=== PATIENT | male | born 1950 | race Caucasian/White ===

== ENCOUNTER 2017-04-28 19:31 | Emergency (ER) | payer OTHER ==
[~2017-04-28] VITALS: Ht 180.3 cm; Wt 114.4 kg
[~2017-04-28 19:31] MED LIST: CIPR-255 PO; CITA40TA4 PO; CLOP1TAB5 PO; PRLSR20 PO; SIMV40TA4 PO; TERA1CAP PO
[2017-04-28 19:37] VITALS: TEMP 37.3; Ht 180.3 cm; Wt 114.4 kg
--- NOTE | 2017-04-28 20:54 | DIAGNOSTIC IMAGING REPORT ---
LEFT HAND 3 VIEWS CLINICAL HISTORY: Left hand injury. Tractor accident. FINDINGS: 3 views of left hand are obtained. No prior studies are available for comparison at the time of dictation. The skeletal structures are well mineralized for age. There is a small avulsion fracture identified at the base of the second proximal phalanx. There are tiny avulsion fractures seen at the volar base of the second distal phalanx, the second middle phalanx, and the third middle phalanx on the lateral view. An avulsion fracture is also seen arising from the posterior aspect of the distal radius on the lateral view. Mild arthritic change is seen involving the interphalangeal joints. Significant overlying soft tissue edema is noted, greatest dorsally. IMPRESSION: 1. There is a minimally distracted avulsion fracture seen at the base of the second proximal phalanx. 2. There are avulsion fractures seen at the volar base of the second distal phalanx, the second middle phalanx, and the third middle phalanx. 3. There is an avulsion fracture seen from the posterior radius. 4. Diffuse soft tissue edema is noted, greatest dorsally. Electronically signed by: Darvin Ba M.D. 04/28/2017 8:52 PM Dictated Date/Time: 04/28/2017 8:47 PM
--- NOTE | 2017-04-28 21:16 | DIAGNOSTIC IMAGING REPORT ---
CT SCAN OF THE BRAIN WITHOUT IV CONTRAST CLINICAL HISTORY: Trauma. COMPARISON STUDY: CT of the brain dated 11/12/2010. TECHNIQUE: Unenhanced axial CT scan of the brain is performed from the vertex to the skull base. Automated dose control exposure was utilized. CT DOSE: 1277.40 mGy.cm FINDINGS: Brain parenchyma: There is minimal periventricular microangiopathic change. The brain parenchyma is otherwise normal in appearance. There is no hemorrhage, mass effect, or evidence of acute territorial ischemia by CT criteria. Moncada-white matter is preserved. No extra-axial fluid collection is seen. Ventricles, sulci, cisterns: Normal in configuration. Intracranial vasculature: There is mild atherosclerotic calcification of the cavernous carotid arteries. Calvarium: There is no depressed calvarial fracture. Sinuses and mastoids: The visualized paranasal sinuses are clear. A small posterior defect of the left frontal sinus seen on image #15 is unchanged from 2011. The mastoid air cells are well pneumatized. Orbits: The bony orbits are grossly intact. IMPRESSION: No acute intracranial abnormality. Electronically signed by: Darvin Ba M.D. 04/28/2017 9:15 PM Dictated Date/Time: 04/28/2017 9:13 PM
[2017-04-28] MEDS ORDERED: OXYC1CAP5 PO (21:18)
--- NOTE | 2017-04-28 21:35 | DIAGNOSTIC IMAGING REPORT ---
CT SCAN OF THE CERVICAL SPINE CLINICAL HISTORY: Trauma. Tractor accident. COMPARISON STUDY: No priors. TECHNIQUE: CT scan of the cervical spine is performed from the skull base to the upper thoracic spine. Images are reviewed in the axial, sagittal, and coronal planes. IV contrast was not administered for this examination. FINDINGS: Skeletal structures: The skeletal structures are well mineralized for age. There is no evidence of fracture or subluxation involving the cervical spine. Vertebral body height and alignment are maintained. There is straightening of cervical lordosis with reversal centered at C5. The odontoid process and lateral masses are intact. There is calcification of the posterior longitudinal ligament. The atlantoaxial articulation is preserved noting productive degenerative change. The spinous processes appear intact. Degenerative sclerosis is seen at C5-C6 and C6-C7. Anterior osteophytes are noted in the lower cervical spine. There is moderate multilevel cervical spondylosis. Uncovertebral and facet arthropathy contribute to neural foraminal stenosis at several levels. Spina bifida occulta is incidentally noted involving T1. Intervertebral discs: There is moderate to advanced degenerative disc space narrowing at C5-C6 and C6-C7. Mild narrowing is seen at C7-T1. Central canal: Posterior disc osteophyte complexes at C5-C6 and C6-C7 likely treatment to acquired compromise of the central canal. Soft tissues: The prevertebral and paraspinous soft tissues are within normal limits. The left lobe of the thyroid gland extends into the mediastinum. Calvarium: The visualized calvarium at the skull base appears intact. Brain parenchyma: Partially visualized brain parenchyma the skull base is within normal limits. Sinuses and mastoids: The visualized paranasal sinuses are clear. The mastoid air cells are well pneumatized. Lung apices: Clear as visualized. IMPRESSION: 1. There is no evidence of fracture or subluxation involving the cervical spine. 2. Multilevel cervical spondylosis as above. Electronically signed by: Darvin Ba M.D. 04/28/2017 9:34 PM Dictated Date/Time: 04/28/2017 9:29 PM
--- NOTE | 2017-04-28 21:44 | DIAGNOSTIC IMAGING REPORT ---
CT SCAN OF THE LUMBAR SPINE WITHOUT IV CONTRAST CLINICAL HISTORY: Trauma. COMPARISON STUDY: CT scan of the lumbar spine dated 05/29/2016. TECHNIQUE: CT scan of the lumbar spine is performed from the lower thoracic spine to the sacrum. Images are reviewed in the axial, sagittal, and coronal planes. IV contrast was not administered for this examination. CT DOSE: 1496.59 mGy.cm FINDINGS: The skeletal structures are well mineralized for age. There is no evidence of fracture or malalignment involving the lumbar spine. Vertebral body height and alignment are maintained. The transverse and spinous processes are intact. There is no spondylolysis. No lytic or blastic lesions are seen. There is mild to moderate disc space narrowing at L5-S1 with associated vacuum phenomenon. The remaining disc spaces are preserved. Small posterior disc bulges are suggested at L4-L5 and L5-S1. There is no evidence of large disc herniation. Small anterior osteophytes are seen in the lower lumbar region. The visualized sacrum and bony pelvis appear intact. The paraspinous soft tissues are within normal limits. Mild to moderate atherosclerotic calcification is noted in the abdominal aorta. IMPRESSION: 1. There is no evidence of fracture or malalignment involving the lumbar spine. 2. Mild spondylotic change as above. Electronically signed by: Darvin Ba M.D. 04/28/2017 9:42 PM Dictated Date/Time: 04/28/2017 9:38 PM
--- NOTE | 2017-04-28 22:55 | DIAGNOSTIC IMAGING REPORT ---
BONY ORBITS 3 VIEWS CLINICAL HISTORY: MRI clearance. FINDINGS: 3 views of the bony orbits are obtained. Correlation is made with CT of the brain dated 04/28/2017. There is no radiodense/metallic foreign body seen in the region of the bony orbits. The bony orbits are intact as imaged. The visualized paranasal sinuses and the mastoid air cells appear clear. The imaged calvarium appears intact. IMPRESSION: There is no radiodense/metallic foreign body seen in the region of the bony orbits. Electronically signed by: Darvin Ba M.D. 04/28/2017 10:53 PM Dictated Date/Time: 04/28/2017 10:53 PM
[2017-04-29] MEDS ORDERED: ACETAMINOPHEN 500 MG TAB PO STA (01:46)
[2017-04-29] MEDS ORDERED: OXYC1TAB3 PO (02:11)
[2017-04-29] MEDS ORDERED: OXYCODONE IR HOME PACK PO ONE (02:15)
[2017-04-29 02:20] VITALS: BP 126/82; PULSE 66; O2SAT 95
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
== END 2017-04-29 02:20 | disposition home or self-care (01) ==
LOC: C.EDB 19:33 → C.EDA 04-29 02:20
DX: S62.92XA Unspecified fracture of left hand, initial encounter for closed fracture (principal); S62.102A Fracture of unspecified carpal bone, left wrist, initial encounter for closed fracture; S09.90XA Unspecified injury of head, initial encounter; W28.XXXA Contact with powered lawn mower, initial encounter; M54.5 Low back pain; E78.5 Hyperlipidemia, unspecified; K21.9 Gastro-esophageal reflux disease without esophagitis; G47.33 Obstructive sleep apnea (adult) (pediatric); Z96.659 Presence of unspecified artificial knee joint; Z96.649 Presence of unspecified artificial hip joint; Z79.899 Other long term (current) drug therapy; Z82.49 Family history of ischemic heart disease and other diseases of the circulatory system; Z80.9 Family history of malignant neoplasm, unspecified; Z83.79 Family history of other diseases of the digestive system

== ENCOUNTER 2017-09-30 18:52 | Observation (INO) | payer OTHER ==
[~2017-09-30] VITALS: Ht 180.3 cm; Wt 116.1 kg
[~2017-09-30 18:52] MED LIST changes: -CIPR-255 PO; +OXYC1CAP5 PO; +OXYC1TAB3 PO; -TERA1CAP PO
[2017-09-30] MEDS ORDERED: ONDANSETRON INJ 2 MG/ML 2 ML VIAL IV STA (21:13)
[2017-09-30] MEDS ORDERED: MoRPHine SULFATE 4 MG/ML 1 ML CARP\\VIAL IV STA (21:13)
[2017-09-30 21:40] LABS: COMPLETE YES; EOS % 0.7 %; HEMATOCRIT 48.1 % (42-52); IG% 0.3 %; LYMPH % 15.1 %; LYMPH ABS # 1.42 K/uL (1.2-3.4); MEAN CELL VOLUME 92.7 fL (80-100); MEAN CORPUSCULAR HEMOGLOBIN 31.2 pg (25-34); MEAN CORPUSCULAR HGB CONC 33.7 g/dl (32-36); MEAN PLATELET VOLUME 9.7 fL (7.4-10.4); MONO % 9.3 %; NEUT % 74.6 %; PLATELET COUNT 207 K/uL (130-400); RED BLOOD COUNT 5.19 M/uL (4.7-6.1); WHITE BLOOD COUNT 9.39 K/uL (4.8-10.8)
[2017-09-30 21:51] LABS: BUN/CREATININE RATIO 15.5 (10-20); CALCIUM 9.2 mg/dl (8.5-10.1); CREATININE 1.28 mg/dl (0.60-1.40); POTASSIUM 3.9 mmol/L (3.5-5.1)
[2017-09-30 23:01] LABS: URINE APPEARANCE CLEAR (CLEAR); URINE BILIRUBIN NEG (NEG); URINE COLOR DK YELLOW; URINE NITRITE NEG (NEG); URINE SPECIFIC GRAVITY 1.026 (1.000-1.030); UROBILINOGEN NEG (NEG)
[2017-09-30 23:03] LABS: MANUAL MICROSCOPIC REQUIRED? NO; REVIEW REQ? NO
[2017-09-30] MEDS ORDERED: OPTIRAY 320 IV PRN (23:30)
[2017-09-30] MEDS ORDERED: MoRPHine SULFATE 2 MG/ML CARP IV STA (23:31)
[2017-10-01] VITALS (9 sets, daily range): BP systolic 114–133; BP diastolic 74–80; PULSE 65–67; TEMP 36.5–37; O2SAT 92–97; Ht 180.3 cm; Wt 116.1 kg
--- NOTE | 2017-10-01 01:48 | Surgery Consultation ---
Consultation Date of Consultation: Oct 01, 2017. Attending Physician: History of Present Illness The patient is a 66 year old male who presents to the Emergency Room with complaints of worsening RLQ abdominal pain for the past 3 hours. The patient states that he had similar pain about 3 weeks ago that resolved after a short time. He has been feeling well since then. Tonight the patient developed lower abdominal pain that is worse on the right side. He rates his current pain as a 9.5/10 in severity. He describes his pain as sharp. Sitting up exacerbates his pain. The patient states that he became cold and clammy while in the waiting room of the ED. The patient denies fevers, back pain, vomiting, dysuria, hematuria, diarrhea, melena, and hematochezia. He had a normal bowel movement earlier today. He had a normal colonoscopy earlier this year. 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: Acute (2) Acute urinary retention Status: Acute (3) BPH (benign prostatic hyperplasia) Status: Acute (4) Closed head injury Status: Acute (5) Constipation Status: Acute (6) Fracture of multiple bones of left hand Status: Acute (7) Left wrist fracture Status: Acute (8) Low back pain Status: Acute (9) Rectal bleed Status: Acute (10) Urinary retention Status: Acute Family History FH: heart disease FH: lung disease FHx: cancer FHx: gallbladder disease Hypertension Social History Smoking Status: Never Smoker Smokeless Tobacco Use: No Alcohol Use: occasionally Drug Use: none Marital Status: Housing Status: lives with family Occupation Status: unemployed Allergies Coded Allergies: No Known Allergies (Verified , nkda, 09/30/17) Home Medications Scheduled Citalopram Hydrobromide (Citalopram Hydrobromide), 40 MG PO DAILY Clopidogrel Bisulfate (Plavix), 75 MG PO DAILY Omeprazole (Prilosec), 20 MG PO BID Simvastatin (Zocor), 20 MG PO HS Current Inpatient Medications Current Inpatient Medications Medications (Trade) Dose Ordered Sig/Bola Route Start Time Stop Time Status Last Admin Dose Admin Ioversol (Optiray 320) 100 ml UD PRN IV 09/30/17 23:30 10/04/17 23:29 Review of Systems Constitutional: No fever, No chills, No sweats, No weight loss, No weakness, No fatigue, No problem reported Eyes: No worsening of vision, No eye pain, No redness, No discharge, No diplopia, No problem reported ENT: No hearing loss, No unusual epistaxis, No nasal symptoms, No sore throat, No tinnitus, No dental problems, No trouble swallowing, No problem reported Respiratory: No cough, No sputum, No wheezing, No shortness of breath, No dyspnea on exertion, No dyspnea at rest, No hemoptysis, No problem reported Cardiovascular: No chest pain, No orthopnea, No PND, No edema, No claudication , No palpitations, No problem reported Abdomen: + pain, + nausea, + problem reported (right inguinal hernia surgery) Musculoskeletal: + joint pain Genitourinary - Male: No hematuria, No dysuria, No urinary frequency, No urinary urgency, No urinary hesitancy, No urinary retention, No urinary incontinence, No penile discharge, No lesions, No impotence, No problem reported Neurologic: No memory loss, No paralysis, No weakness, No numbness/tingling, No vertigo, No balance problems, No problem reported Psychiatric: No depression symptoms, No anhedonism, No anxiety, No insomnia, No substance abuse, No problem reported Endocrine: No fatigue, No excessive thirst, No excessive urination, No problem reported Hematologic / Lymphatic: No abnormal bleeding/bruising, No clotting problems, No swollen lymph nodes, No night sweats, No problem reported Physical Exam Date Time Temp Pulse Resp B/P (MAP) Pulse Ox O2 Delivery O2 Flow Rate FiO2 10/01/17 00:24 64 18 107/76 95 Room Air 09/30/17 22:52 66 18 141/88 96 Room Air 09/30/17 21:07 65 18 141/88 98 Room Air 09/30/17 19:33 36.7 57 20 152/96 96 Room Air General Appearance: WD/WN, no apparent distress Head: normocephalic Eyes: normal inspection ENT: normal ENT inspection Neck: supple, no JVD Respiratory/Chest: chest non-tender, lungs clear, normal breath sounds Cardiovascular: regular rate, rhythm, no edema, no gallop, no JVD, no murmur Abdomen/GI: normal bowel sounds, soft, no organomegaly, no pulsatile mass, normal rectal exam, + tenderness (at RLQ, rebound pain +) Extremities/Musculoskelatal: normal inspection, no calf tenderness, normal capillary refill Neurologic/Psych: no motor/sensory deficits, alert, normal mood/affect Skin: normal color, warm/dry, no rash Laboratory Results Last 24 Hours Test 09/30/17 21:15 09/30/17 22:50 White Blood Count 9.39 K/uL Red Blood Count 5.19 M/uL Hemoglobin 16.2 g/dL Hematocrit 48.1 % Mean Corpuscular Volume 92.7 fL Mean Corpuscular Hemoglobin 31.2 pg Mean Corpuscular Hemoglobin Concent 33.7 g/dl Platelet Count 207 K/uL Mean Platelet Volume 9.7 fL Neutrophils (%) (Auto) 74.6 % Lymphocytes (%) (Auto) 15.1 % Monocytes (%) (Auto) 9.3 % Eosinophils (%) (Auto) 0.7 % Basophils (%) (Auto) 0.0 % Neutrophils # (Auto) 7.00 K/uL Lymphocytes # (Auto) 1.42 K/uL Monocytes # (Auto) 0.87 K/uL Eosinophils # (Auto) 0.07 K/uL Basophils # (Auto) 0.00 K/uL RDW Standard Deviation 46.3 fL RDW Coefficient of Variation 13.7 % Immature Granulocyte % (Auto) 0.3 % Immature Granulocyte # (Auto) 0.03 K/uL Sodium Level 140 mmol/L Potassium Level 3.9 mmol/L Chloride Level 105 mmol/L Carbon Dioxide Level 28 mmol/L Anion Gap 7.0 mmol/L Blood Urea Nitrogen 20 mg/dl Creatinine 1.28 mg/dl Est Creatinine Clear Calc Drug Dose 71.6 ml/min Estimated GFR () 66.2 Estimated GFR (Non- 57.1 BUN/Creatinine Ratio 15.5 Random Glucose 101 mg/dl Calcium Level 9.2 mg/dl Total Bilirubin 0.8 mg/dl Direct Bilirubin 0.2 mg/dl Aspartate Amino Transf (AST/SGOT) 26 U/L Alanine Aminotransferase (ALT/SGPT) 43 U/L Alkaline Phosphatase 52 U/L Total Protein 8.5 gm/dl Albumin 4.4 gm/dl Lipase 106 U/L Urine Color DK YELLOW Urine Appearance CLEAR Urine pH 5.0 Urine Specific [place] 1.026 Urine Protein NEG Urine Glucose (UA) NEG Urine Ketones TRACE Urine Occult Blood NEG Urine Nitrite NEG Urine Bilirubin NEG Urine Urobilinogen NEG Urine Leukocyte Esterase NEG Assessment & Plan CT scan- acute appendicitis Assessment: pt is a 66 yo male who presents to ER with 3 hours RLQ pain, IMP Acute appendicitis Plan, I recommend to do laparoscopic appendectomy, possible open, D/W Benefits, risks and alternatives of the procedure, the risks -infection, bleeding, injury bowel abscess, Mi, DVT, , , pt understood, he agrees with the plan, I answered all questions,
[2017-10-01] MEDS ORDERED: LIDOCAINE HCL 1% 20 ML VIAL ONE (02:02)
[2017-10-01] MEDS ORDERED: BUPIVACAINE 0.5 % 5 MG/1 ML MPF 30ML VIAL ONE (02:03)
--- NOTE | 2017-10-01 02:28 | EMERGENCY ROOM VISIT NOTE ---
History Report prepared by Brandon: Carmelina Valero Under the Supervision of: Dr. Mane Velasco M.D. First contact with patient: 21:06 Chief Complaint: ABDOMINAL PAIN Stated Complaint: EXTREME PAIN LOWER ABD Nursing Triage Summary: Patient ambulatory to triage with a steady and upright gait, states "I am having severe pains in my lower abdomen. I got home from [place] about 4 weeks ago and thought I had a hernia. I was having some pain. It went away. Tonight, I developed severe pain again out of no where while sitting in a chair. I got very worried." Patient denies any nausea, vomiting, diarrhea or constipation. History of Present Illness The patient is a 66 year old male who presents to the Emergency Room with complaints of worsening RLQ abdominal pain for the past 3 hours. The patient states that he had similar pain about 3 weeks ago that resolved after a short time. He has been feeling well since then. Tonight the patient developed lower abdominal pain that is worse on the right side. He rates his current pain as a 9.5/10 in severity. He describes his pain as sharp. Sitting up exacerbates his pain. The patient states that he became cold and clammy while in the waiting room of the ED. The patient denies fevers, back pain, vomiting, dysuria, hematuria, diarrhea, melena, and hematochezia. He had a normal bowel movement earlier today. He had a normal colonoscopy earlier this year. Source of History: patient Onset: 3 hours [employer] Position: abdomen (RLQ) Symptom Intensity: 9.5/10 Quality: sharp Timing: worsening Modifying Factors (Worsening): other (sitting up) Associated Symptoms: No fevers, No vomiting, No back pain, No melena, No hematochezia, No urinary symptoms Review of Systems See HPI for pertinent positives & negatives. A total of 10 systems reviewed and were otherwise negative. Past Medical & Surgical Medical Problems: (1) DEPRESSIVE DISORDER NEC (2) ESOPHAGEAL REFLUX (3) HIP JOINT REPLACEMENT STATUS (4) HYPERLIPIDEMIA NEC/NOS (5) HYPERTROPHY (BENIGN) OF PROSTATE W/O URINARY OBST & OTH LUTS (6) KNEE JOINT REPLACEMENT STATUS (7) OBSTRUCTIVE SLEEP APNEA (ADULT) (PEDIATRIC) Family History FH: heart disease FH: lung disease FHx: cancer FHx: gallbladder disease Hypertension Social History Smoking Status: Never Smoker Alcohol Use: none Drug Use: none Marital Status: Housing Status: lives with family Occupation Status: unemployed Current/Historical Medications Scheduled Citalopram Hydrobromide (Citalopram Hydrobromide), 40 MG PO DAILY Clopidogrel Bisulfate (Plavix), 75 MG PO DAILY Omeprazole (Prilosec), 20 MG PO BID Simvastatin (Zocor), 20 MG PO HS Allergies Coded Allergies: No Known Allergies (Verified , nkda, 09/30/17) Physical Exam Vital Signs Date Time Temp Pulse Resp B/P (MAP) Pulse Ox O2 Delivery O2 Flow Rate FiO2 10/01/17 01:46 60 20 117/71 95 Room Air 10/01/17 00:24 64 18 107/76 95 Room Air 09/30/17 22:52 66 18 141/88 96 Room Air 09/30/17 21:07 65 18 141/88 98 Room Air 09/30/17 19:33 36.7 57 20 152/96 96 Room Air Physical Exam Constitutional: Vital signs reviewed. Eyes: Pupils are equal round reactive to light. Conjunctiva are noninjected. ENT: Pharynx is clear without erythema or exudate. Mucous membranes are moist. Neck supple without meningeal signs. Respiratory: Clear to auscultation bilaterally. Breath sounds are equal bilaterally. Cardiovascular: Regular rate and rhythm. No rubs or gallops. GI: Soft, RLQ tenderness, no guarding, no CVA tenderness, nondistended. Bowel sounds are present. Musculoskeletal: No peripheral edema. No lower extremity tenderness. Integumentary: No cyanosis. Neurological: The patient is awake and alert. No focal deficits. Psychiatric: Normal affect. Medical Decision & Procedures ER Provider Diagnostic Interpretation: Radiology results as stated below per my review and the radiologist's interpretation: CT ABDOMEN & PELVIS With Contrast: Compared to 05/29/17. Thickened appendix measures approximately 10 mm with adjacent inflammatory changes compatible with appendicitis. The appendix is indistinct in appearance, localized microperforation is not entirely excluded. No organized fluid collection or free air. Moderate hiatal hernia. Additional incidental findings similar to prior study. Radiologist: Idania Walker MD. Laboratory Results 09/30/17 21:15 Red Blood Count 5.19, Mean Corpuscular Volume 92.7, Mean Corpuscular Hemoglobin 31.2, Mean Corpuscular Hemoglobin Concent 33.7, Mean Platelet Volume 9.7, Neutrophils (%) (Auto) 74.6, Lymphocytes (%) (Auto) 15.1, Monocytes (%) (Auto) 9.3, Eosinophils (%) (Auto) 0.7, Basophils (%) (Auto) 0.0, Neutrophils # (Auto) 7.00, Lymphocytes # (Auto) 1.42, Monocytes # (Auto) 0.87, Eosinophils # (Auto) 0.07, Basophils # (Auto) 0.00 09/30/17 21:15 Test 09/30/17 21:15 09/30/17 22:50 White Blood Count 9.39 K/uL (4.8-10.8) Red Blood Count 5.19 M/uL (4.7-6.1) Hemoglobin 16.2 g/dL (14.0-18.0) Hematocrit 48.1 % (42-52) Mean Corpuscular Volume 92.7 fL (80-100) Mean Corpuscular Hemoglobin 31.2 pg (25-34) Mean Corpuscular Hemoglobin Concent 33.7 g/dl (32-36) Platelet Count 207 K/uL (130-400) Mean Platelet Volume 9.7 fL (7.4-10.4) Neutrophils (%) (Auto) 74.6 % Lymphocytes (%) (Auto) 15.1 % Monocytes (%) (Auto) 9.3 % Eosinophils (%) (Auto) 0.7 % Basophils (%) (Auto) 0.0 % Neutrophils # (Auto) 7.00 K/uL (1.4-6.5) Lymphocytes # (Auto) 1.42 K/uL (1.2-3.4) Monocytes # (Auto) 0.87 K/uL (0.11-0.59) Eosinophils # (Auto) 0.07 K/uL (0-0.5) Basophils # (Auto) 0.00 K/uL (0-0.2) RDW Standard Deviation 46.3 fL (36.4-46.3) RDW Coefficient of Variation 13.7 % (11.5-14.5) Immature Granulocyte % (Auto) 0.3 % Immature Granulocyte # (Auto) 0.03 K/uL (0.00-0.02) Anion Gap 7.0 mmol/L (3-11) Est Creatinine Clear Calc Drug Dose 71.6 ml/min Estimated GFR () 66.2 Estimated GFR (Non- 57.1 BUN/Creatinine Ratio 15.5 (10-20) Calcium Level 9.2 mg/dl (8.5-10.1) Total Bilirubin 0.8 mg/dl (0.2-1) Direct Bilirubin 0.2 mg/dl (0-0.2) Aspartate Amino Transf (AST/SGOT) 26 U/L (15-37) Alanine Aminotransferase (ALT/SGPT) 43 U/L (12-78) Alkaline Phosphatase 52 U/L (45-117) Total Protein 8.5 gm/dl (6.4-8.2) Albumin 4.4 gm/dl (3.4-5.0) Lipase 106 U/L (73-393) Urine Color DK YELLOW Urine Appearance CLEAR (CLEAR) Urine pH 5.0 (4.5-7.5) Urine Specific [place] 1.026 (1.000-1.030) Urine Protein NEG (NEG) Urine Glucose (UA) NEG (NEG) Urine Ketones TRACE (NEG) Urine Occult Blood NEG (NEG) Urine Nitrite NEG (NEG) Urine Bilirubin NEG (NEG) Urine Urobilinogen NEG (NEG) Urine Leukocyte Esterase NEG (NEG) Laboratory results as reviewed by me. Medications Administered Medications (Trade) Dose Ordered Sig/Bola Route Start Time Stop Time Status Last Admin Dose Admin Morphine Sulfate (MoRPHine SULFATE INJ) 4 mg ONE STAT IV 09/30/17 21:13 09/30/17 21:14 DC 09/30/17 21:21 4 MG Ondansetron HCl (Zofran Inj) 4 mg NOW STAT IV 09/30/17 21:13 09/30/17 21:14 DC 09/30/17 21:21 4 MG Morphine Sulfate (MoRPHine SULFATE INJ) 2 mg NOW STAT IV 09/30/17 23:31 09/30/17 23:33 DC 09/30/17 23:35 2 MG ED Course 2107: The patient was evaluated in room C6. A complete history and physical exam was performed. 2112: Zofran 4 mg IV, Morphine sulfate 4 mg IV 0: Upon reevaluation the patient is doing well and waiting for his CT scan. 2330: Morphine sulfate 2 mg IV 2: I updated the patient on his CT results. I answered all pertaining questions that he had. He expressed understanding and verbalized agreement. Medical Decision This is a 66-year-old male presents with lower abdominal pain. Differential diagnosis includes acute appendicitis, abscess, perforation, colitis, mass, kidney stone. I did perform a limited focused review of portions of the patient 's old chart on the electronic medical record. The patient has had no recent pertinent visits to this hospital. I did evaluate the patient as noted above. IV access was established. I did treat patient with IV morphine and Zofran. I did order and personally review the patient's urine analysis as described above. I did order and review the patient's blood work as noted in the electronic medical record. His white blood cell count is not elevated. I did order a CT of the abdomen and pelvis. I did review the images myself as well as the radiology report as described above. He does have acute appendicitis. The case was discussed with the surgeon. The patient was taken to the OR for appendectomy. Medication Reconcilliation Current Medication List: was personally reviewed by me Blood Pressure Screening Patient's blood pressure: Elevated blood pressure Blood pressure disposition: Referred to PCP Impression Primary Impression: Acute appendicitis Scribe Attestation The scribe's documentation has been prepared under my direct and personally reviewed by me in its entirety. I confirm that the note above accurately reflects all work, treatment, procedures, and medical decision making performed by me. Departure Information Dispostion Being Evaluated By Surgeon Referrals Jan Edward M.D. ([facility]) (PCP) Patient Instructions My [facility] Problem Qualifiers Primary Impression: Acute appendicitis Acute appendicitis type: unspecified acute appendicitis type Qualified Codes : K35.80 - Unspecified acute appendicitis
[2017-10-01] MEDS ORDERED: PROPOFOL IV EMULSION 10 MG/ML 20 ML VIAL IV ONE (02:52)
[2017-10-01] MEDS ORDERED: SUCCINYLCHOLINE 100MG/5ML SYR IV ONE (02:52)
[2017-10-01] MEDS ORDERED: LIDOCAINE HCL 2% 2 ML VIAL (20MG/ML) ONE (02:52)
[2017-10-01] MEDS ORDERED: ROCURONIUM BROMIDE 10 MG/ML 5 ML VIAL IV ONE (02:53)
[2017-10-01] MEDS ORDERED: FENTANYL CITRATE INJ 50 MCG/1 ML 2 ML VIAL ONE (02:54)
--- NOTE | 2017-10-01 02:55 | History & Physical Bridge Note ---
H&P Re-Evaluation Bridge Note: I have examined the patient, reviewed the History & Physical and in the interval since the performance of the History & Physical I have noted the following changes of clinical significance: No changes noted
[2017-10-01] MEDS ORDERED: CEFOXITIN SOD 1 GM VIAL ONE (02:56)
[2017-10-01] MEDS ORDERED: ATROPINE SULFATE 0.1 MG/ML 5ML SYR IV PRN (03:15)
[2017-10-01] MEDS ORDERED: ONDANSETRON INJ 2 MG/ML 2 ML VIAL IV PRN ×2 (03:15→05:00)
[2017-10-01] MEDS ORDERED: PHENYLEPHRINE 100MCG/ML 5ML SYR IV PRN (03:15)
[2017-10-01] MEDS ORDERED: EpHEDrine SULFATE INJ 50 MG/ML AMP IV PRN (03:15)
[2017-10-01] MEDS ORDERED: HYDROmorphone INJ 2 MG/ML SYR/VIAL IV PRN (03:15)
--- NOTE | 2017-10-01 04:40 | Anesthesiology Progress Note ---
Anesthesia Post Op Note Date & Time Oct 01, 2017 at 04:39 Vital Signs Pain Intensity: 4.0 Vital Signs Past 12 Hours Date Time Temp Pulse Resp B/P (MAP) Pulse Ox O2 Delivery O2 Flow Rate FiO2 10/01/17 01:46 60 20 117/71 95 Room Air 10/01/17 00:24 64 18 107/76 95 Room Air 09/30/17 22:52 66 18 141/88 96 Room Air 09/30/17 21:07 65 18 141/88 98 Room Air 09/30/17 19:33 36.7 57 20 152/96 96 Room Air Notes Mental Status: alert / awake / arousable, participated in evaluation Pt Amnestic to Procedure: Yes Nausea / Vomiting: adequately controlled Pain: adequately controlled Airway Patency, RR, SpO2: stable & adequate BP & HR: stable & adequate Hydration State: stable & adequate Anesthetic Complications: no major complications apparent
[2017-10-01] MEDS ORDERED: BACITRACIN OP OINT 3.5 GM TUBE TOP ONE (04:46)
--- NOTE | 2017-10-01 04:50 | [facility] Post Operative Brief Note ---
Immediate Operative Summary Operative Date Oct 01, 2017. Pre-Operative Diagnosis Acute Appendicitis Post-Operative Diagnosis Acute Appendicitis Procedure(s) Performed Laparoscopic Appendectomy Surgeon Dr. Downey [place] Surgeon(s) none Estimated Blood Loss 5 cc Findings acute appendicitis Fluids (cc crystalloids) 1500ml Specimens A: appendix Drains none Anesthesia general Complication(s) None Disposition Recovery Room / PACU
[2017-10-01] MEDS ORDERED: ACETAMINOPHEN 325 MG TAB PO PRN (05:00)
[2017-10-01] MEDS ORDERED: HYDROmorphone INJ 1 MG/ML SYR IV PRN (05:00)
[2017-10-01] MEDS ORDERED: IV FLUIDS COMPLETED PRN (05:30)
--- NOTE | 2017-10-01 05:47 | OPERATIVE REPORT ---
DATE OF OPERATION: 10/01/2017 PREOPERATIVE DIAGNOSIS: Acute appendicitis. POSTOPERATIVE DIAGNOSIS: Same. PROCEDURE: Laparoscopic appendectomy. SURGEON: Jaison Downey MD. ANESTHESIA: General. ESTIMATED BLOOD LOSS: About 5 mL. FINDINGS: Acute appendicitis. COMPLICATIONS: None. INDICATIONS FOR THE PROCEDURE: This is a 66-year-old gentleman who presented with acute abdominal pain. The patient had a CT scan diagnosis of acute appendicitis. The patient will be required to do laparoscopic appendectomy, possible open. I did talk to the patient about the benefit and risk, alternate procedure. I indicated the risks may include but not limited to such as bleeding, infection, injury to the bowel, abscess, DVT, myocardial infarction. The patient understands. He signed informed consent and I answered all questions. DETAILS OF PROCEDURE: We brought the patient to the OR, put the patient on the supine position. The patient received SCD on bilateral legs to prevent DVT. Also, the patient received 2 gram cefoxitin IV for prophylactic antibiotic. The patient received general anesthesia without difficulty. The abdomen was appropriately prepped in routine sterile fashion. After time out, I injected the local anesthesia by using 1% lidocaine mixed with 0.5% Marcaine just above the umbilical. Then I made a small incision just above umbilical, opened fascia and opened peritoneum under direct vision. I put a Evon trocar in, connected to CO2 to create pneumoperitoneum. Flow rate at 8-6 liter per minute. Pressure not more than 14 mmHg. Once we get a nice pneumoperitoneum, we put the camera in to look around the abdomen showing normal finding on the stomach, small bowel, large bowel. However, the appendix shows significant inflammation, swollen. Then we put another two 5 mm trocar on the left lower quadrant area. Once all trocars were in, mobilized the appendix and that showed acute appendicitis. Then I made a window in the base of the appendiceal used Endo-ENOC staple 45 mm transection appendix on the base of the appendix and used harmonic to take down appendiceal. Rechecked and no active bleeding, no bile leak and then we removed the appendix through the catcher bag. Then we reinserted Evon trocar and connected to CO2 to create pneumoperitoneum again and looked around the abdomen, showed no active bleeding, no bile leak and then we removed all trocars under direct vision. No active bleeding from trocar sites. Pneumoperitoneum was released. Then I closed the umbilical incision, fascial layer by using #1 Vicryl [id number] x2, closed subcutaneous layer by using 2-0 Vicryl interruptedly and closed skin by using 4-0 Vicryl continuous running. Another two 5 mm trocar site closed only by using 4-0 Vicryl and then we put the dressing on. The patient tolerated the procedure well. All the instrument, needle and sponge count correct x2 at the end of case. Specimen was sent to pathology and patient transferred to recovery room in stable condition. I attest to the content of the Intraoperative Record and any orders documented therein. Any exceptions are noted below. MTDD
[2017-10-01 05:59] LABS: COMPLETE YES; EOS % 0.2 %; HEMATOCRIT 42.2 % (42-52); IG% 0.1 %; LYMPH ABS # 1.05 K/uL (1.2-3.4); MEAN CELL VOLUME 93.2 fL (80-100); MEAN CORPUSCULAR HEMOGLOBIN 30.7 pg (25-34); MEAN CORPUSCULAR HGB CONC 32.9 g/dl (32-36); MEAN PLATELET VOLUME 9.4 fL (7.4-10.4); MONO % 9.6 %; NEUT % 77.1 %; PLATELET COUNT 167 K/uL (130-400); RED BLOOD COUNT 4.53 M/uL (4.7-6.1)
[2017-10-01] MEDS ORDERED: D5W AND 1/2NSS + 20MEQ KCL 1,000 ML IV SCH (07:00)
--- NOTE | 2017-10-01 07:09 | DIAGNOSTIC IMAGING REPORT ---
CT OF THE ABDOMEN AND PELVIS WITH CONTRAST CLINICAL HISTORY: Right lower quadrant abdominal pain. Evaluate for acute appendicitis. COMPARISON STUDY: CT of the abdomen and pelvis May 29, 2016 and chest radiograph and abdominal series August 02, 2016. TECHNIQUE: Following IV administration of 90 mL of Optiray-320, axial images of the abdomen and pelvis were obtained from the lung bases to the proximal femurs. Images were reviewed in the axial, sagittal, and coronal planes. IV contrast was administered without complication. A dose lowering technique was utilized adhering to the principles of ALARA. Oral contrast was administered. CT DOSE: 1301.37 mGy.cm FINDINGS: There is probable fatty infiltration of the liver. No biliary or pancreatic ductal dilatation is present. There is a moderate sized lateral hernia. Mild splenomegaly is unchanged and CT of May 29, 2016. There is no hydronephrosis. Note is made of a 1.7 cm water attenuation lesion within the lower pole of the right kidney which is consistent with a cyst. A few subcentimeter renal lesions are too small to characterize. The appendix is dilated, measuring 1.1 cm in caliber. There is mild periappendiceal infiltration. There is no free air or abscess. The appendix is retrocecal in location. No lymphadenopathy is present. A left hip arthroplasty is incidentally noted. There are no suspicious osseous lesions. Prostate is moderately enlarged. IMPRESSION: 1. Acute appendicitis. No free air or abscess. 2. Probable fatty infiltration of the liver. 3. Moderate sized hiatal hernia. Electronically signed by: Jamie Miles M.D. 10/01/2017 7:08 AM Dictated Date/Time: 10/01/2017 7:03 AM
[2017-10-01] MEDS: OXYCODONE/ACETAMINOPHEN 5-325 TAB PO PRN ×2 (11:26→16:02)
--- NOTE | 2017-10-01 13:12 | Surgery Progress Note ---
Surgery Progress Note Date of Service Oct 01, 2017. Subjective Post OP Day: POD # 0 s/p laparoscopic appendectomy + feeling well, + pain controlled, + diet (not diet as of yet, +hungry, wants coffee), No complaints, No chest pain, No SOB Objective Vital Signs: Date Time Temp Pulse Resp B/P (MAP) Pulse Ox O2 Delivery O2 Flow Rate FiO2 10/01/17 09:01 65 16 125/74 (91) 97 2.0 10/01/17 08:20 Nasal Cannula 2.0 10/01/17 07:59 36.8 65 16 124/77 (93) 97 Room Air 2.0 10/01/17 07:00 67 18 114/76 (89) 94 Nasal Cannula 2.0 10/01/17 06:38 93 Nasal Cannula 2.0 10/01/17 06:36 93 Nasal Cannula 2.0 10/01/17 06:30 37.0 65 18 122/78 (93) 94 Nasal Cannula 2.0 10/01/17 06:27 36.8 67 16 118/76 93 Nasal Cannula 2.0 10/01/17 05:30 86 18 120/72 93 Nasal Cannula 1 10/01/17 05:15 68 20 116/70 95 Oxymask 2 10/01/17 05:10 36.7 69 18 113/71 92 Oxymask 2 10/01/17 05:05 76 16 119/75 95 Oxymask 2 10/01/17 05:00 36.7 72 20 106/67 95 Oxymask 4 10/01/17 04:55 72 18 111/78 95 Oxymask 6 10/01/17 04:50 71 21 124/78 95 Oxymask 8 10/01/17 04:45 80 20 115/83 95 Oxymask 8 10/01/17 04:40 81 21 131/87 95 Oxymask 8 10/01/17 04:35 80 21 136/81 95 Oxymask 10 10/01/17 04:30 36.5 72 18 132/75 (80) 95 10 10/01/17 01:46 60 20 117/71 95 Room Air 10/01/17 00:24 64 18 107/76 95 Room Air 09/30/17 22:52 66 18 141/88 96 Room Air 09/30/17 21:07 65 18 141/88 98 Room Air 12/4/17 19:33 36.7 57 20 152/96 96 Room Air General Appearance: WD/WN, no apparent distress Neck: trachea midline Respiratory/Chest: no respiratory distress, no accessory muscle use Abdomen: non distended, soft, no organomegaly, no pulsatile mass, + tenderness (minimal and appropriate post op) Incision(s): clean, dry, intact (dressings, incisions not inspected) Laboratory Results: Results Past 24 Hours Test 09/30/17 21:15 09/30/17 22:50 10/01/17 05:43 Range/Units White Blood Count 9.39 8.10 4.8-10.8 K/uL Red Blood Count 5.19 4.53 4.7-6.1 M/uL Hemoglobin 16.2 13.9 14.0-18.0 g/dL Hematocrit 48.1 42.2 42-52 % Mean Corpuscular Volume 92.7 93.2 80-100 fL Mean Corpuscular Hemoglobin 31.2 30.7 25-34 pg Mean Corpuscular Hemoglobin Concent 33.7 32.9 32-36 g/dl Platelet Count 207 167 130-400 K/uL Mean Platelet Volume 9.7 9.4 7.4-10.4 fL Neutrophils (%) (Auto) 74.6 77.1 % Lymphocytes (%) (Auto) 15.1 13.0 % Monocytes (%) (Auto) 9.3 9.6 % Eosinophils (%) (Auto) 0.7 0.2 % Basophils (%) (Auto) 0.0 0.0 % Neutrophils # (Auto) 7.00 6.24 1.4-6.5 K/uL Lymphocytes # (Auto) 1.42 1.05 1.2-3.4 K/uL Monocytes # (Auto) 0.87 0.78 0.11-0.59 K/uL Eosinophils # (Auto) 0.07 0.02 0-0.5 K/uL Basophils # (Auto) 0.00 0.00 0-0.2 K/uL RDW Standard Deviation 46.3 47.1 36.4-46.3 fL RDW Coefficient of Variation 13.7 13.9 11.5-14.5 % Immature Granulocyte % (Auto) 0.3 0.1 % Immature Granulocyte # (Auto) 0.03 0.01 0.00-0.02 K/uL Sodium Level 140 136-145 mmol/L Potassium Level 3.9 3.5-5.1 mmol/L Chloride Level 105 98-107 mmol/L Carbon Dioxide Level 28 21-32 mmol/L Anion Gap 7.0 3-11 mmol/L Blood Urea Nitrogen 20 7-18 mg/dl Creatinine 1.28 0.60-1.40 mg/dl Est Creatinine Clear Calc Drug Dose 71.6 ml/min Estimated GFR () 66.2 Estimated GFR (Non- 57.1 BUN/Creatinine Ratio 15.5 10-20 Random Glucose 101 70-99 mg/dl Calcium Level 9.2 8.5-10.1 mg/dl Total Bilirubin 0.8 0.2-1 mg/dl Direct Bilirubin 0.2 0-0.2 mg/dl Aspartate Amino Transf (AST/SGOT) 26 15-37 U/L Alanine Aminotransferase (ALT/SGPT) 43 12-78 U/L Alkaline Phosphatase 52 45-117 U/L Total Protein 8.5 6.4-8.2 gm/dl Albumin 4.4 3.4-5.0 gm/dl Lipase 106 73-393 U/L Urine Color DK YELLOW Urine Appearance CLEAR CLEAR Urine pH 5.0 4.5-7.5 Urine Specific [place] 1.026 1.000-1.030 Urine Protein NEG NEG Urine Glucose (UA) NEG NEG Urine Ketones TRACE NEG Urine Occult Blood NEG NEG Urine Nitrite NEG NEG Urine Bilirubin NEG NEG Urine Urobilinogen NEG NEG Urine Leukocyte Esterase NEG NEG Assessment & Plan POD # 0 s/p laparoscopic appendectomy - vitals stable, currently on 2 liters of oxygen via NC - abdominal pain controlled - no leukocytosis Plan: Advance diet to full liquids Continue PO Percocet as needed wean Oxygen If does well with full liquids and oxygen sats >92% on room may be discharged later today Dr. Downey has seen patient, agrees with above. Addendum 4:00 pm Patient re-evaluated, tolerated full liquids, pain controlled with po percocet, ambulated and urinating without difficulty, Oxygen sat stable on room air Discharge home Discharge instructions reviewed Follow up 1 week
--- NOTE | 2017-10-01 13:19 | Discharge Instructions ---
Discharge Instructions Date of Service Oct 01, 2017. Admission Reason for Admission: Acute Appendicitis Discharge Discharge Diagnosis / Problem: same Discharge Goals Goal(s): Decrease discomfort, Improve function Activity Recommendations Activity Limitations: as noted below No heavy lifting over 20 pounds for 4 weeks No strenuous activity until cleared by surgeon No submerging incisions underwater for 2 weeks (no bathing, swimming, or hot tubs) No driving while taking narcotic pain medication or until you are pain free . Instructions / Follow-Up Instructions / Follow-Up You may shower in 3 days, sponge bath and wash hair in meantime Try to keep dressings clean and dry, after 3 days remove Leave steri strips on incisions for 7 days and then remove, they may fall off on their own that is okay You do not need to keep dressing on incisions unless they are draining Walking and light activity is encouraged to prevent blood clots from forming Follow-up with in surgical office in 1-2 weeks, please call office at to make an appointment You may resume your home medications starting tonight You will be given Narcotic pain medication (Percocet) as needed for pain. You may use extra strength Tylenol or Ibuprofen as needed for pain however if you are taking the Percocet do not take Tylenol in between doses as Percocet has Tylenol in it. Current Hospital Diet Patient's current hospital diet: Full Liquid Diet Discharge Diet Recommended Diet: Regular Diet Procedures Procedures Performed: Laparoscopic Appendectomy Pending Studies Studies pending at discharge: yes List of pending studies: Appendix pathology will be reviewed at follow-up visit Medical Emergencies . Who to Call and When: Medical Emergencies: If at any time you feel your situation is an emergency, please call 911 immediately. . Non-Emergent Contact Non-Emergency issues call your: Primary Care Provider, Surgeon Call Non-Emergent contact if: you have a fever, temperature is above 101, your pain is not controlled, your pain is worsening, your pain is unusual for you, wound has increased drainage, wound has increased redness, wound has increased pain . "Provider Documentation" section prepared by Dona Caicedo. . VTE Core Measure Inpt VTE Proph given/why not?: SCD's [place] Drug Monitoring Program Search Results: patient reviewed within database, no issues identified
[2017-10-01] MEDS ORDERED: CEFTRIAXONE SOD INJ 1 GM in DEXTROSE 5% ADD-VANTAGE 50ML 50 ML IV SCH (16:00)
[2017-10-01] MEDS ORDERED: OXYC-57 PO (16:02)
--- NOTE | 2017-10-04 11:30 | Discharge Summary ---
Discharge Summary Dates Admission Date / Time: Oct 01, 2017 at 04:53 Discharge Date: Oct 01, 2017 Dispostion / Condition Discharge Disposition: Home Condition at Discharge: Good Principal Diagnosis (1) Acute appendicitis Problem List (1) DEPRESSIVE DISORDER NEC (2) ESOPHAGEAL REFLUX (3) HIP JOINT REPLACEMENT STATUS (4) HYPERLIPIDEMIA NEC/NOS (5) HYPERTROPHY (BENIGN) OF PROSTATE W/O URINARY OBST & OTH LUTS (6) KNEE JOINT REPLACEMENT STATUS (7) OBSTRUCTIVE SLEEP APNEA (ADULT) (PEDIATRIC) (8) Low back pain radiating to right leg (9) Constipation (10) Rectal bleeding Consultations / Procedures Procedures: Laparoscopic appendectomy Pending Studies / Follow-Up Appendix pathology, will be reviewed at follow-up visit Medication Reconciliation New Medications: Oxycodone/Acetaminophen 5MG/325MG (Percocet 5MG/325MG) Tab 1 TABLET PO Q4H PRN for Pain, #18 TAB Continued Medications: Citalopram Hydrobromide (Citalopram Hydrobromide) 40 Mg Tab 40 MG PO DAILY Clopidogrel Bisulfate (Plavix) 75 Mg Tab 75 MG PO DAILY, TAB Omeprazole (Prilosec) 20 Mg Capcr 20 MG PO BID Simvastatin (Zocor) 40 Mg Tab 20 MG PO HS, TAB Admission HPI Per the Admitting provider: The patient is a 66 year old male who presents to the Emergency Room with complaints of worsening RLQ abdominal pain for the past 3 hours. The patient states that he had similar pain about 3 weeks ago that resolved after a short time. He has been feeling well since then. Tonight the patient developed lower abdominal pain that is worse on the right side. He rates his current pain as a 9.5/10 in severity. He describes his pain as sharp. Sitting up exacerbates his pain. The patient states that he became cold and clammy while in the waiting room of the ED. The patient denies fevers, back pain, vomiting, dysuria, hematuria, diarrhea, melena, and hematochezia. He had a normal bowel movement earlier today. He had a normal colonoscopy earlier this year. I saw pt at ER, and reviewed H/P with pt, pt is still have RLQ pain, pt denies fever, no diarrhea, Hospital Course (1) Acute appendicitis Patient was taken to operating room for laparoscopic appendectomy possible open. Patient tolerated procedure well. Was transferred to recovery room and then to medical surgical floor in stable condition. He was started on IV fluids , IV pain medication with po Percocet as needed for pain, IV Zofran, and NPO. He was evaluated on POD # 0 and was doing well. Patient was hungry therefore diet was advanced to full liquids. Encouraged ambulation and OOB to chair. He was on 2 liters of oxygen therefore oxygen was weaned. He was evaluated later in the day , pain controlled, tolerated diet, and oxygen saturations stable on room air. He was discharged home in stable condition. Discharge Instructions as given to patient Copies To Primary Care Provider: Jan Edward M.D.(CARLA).
== END 2017-10-01 16:35 | disposition home or self-care (01) ==
LOC: C.EDB 18:53 → C.EDC 10-01 02:11 → C.MSN 10-01 04:53
PROVIDERS: ADMIT Surgery; ATTEND Surgery
DX: K35.80 Unspecified acute appendicitis (principal); F32.9 Major depressive disorder, single episode, unspecified; K21.9 Gastro-esophageal reflux disease without esophagitis; E78.5 Hyperlipidemia, unspecified; G47.33 Obstructive sleep apnea (adult) (pediatric); N40.0 Benign prostatic hyperplasia without lower urinary tract symptoms; Z82.49 Family history of ischemic heart disease and other diseases of the circulatory system; E78.00 Pure hypercholesterolemia, unspecified; E66.9 Obesity, unspecified; Z96.642 Presence of left artificial hip joint; Z96.651 Presence of right artificial knee joint; Z79.02 Long term (current) use of antithrombotics/antiplatelets; K44.9 Diaphragmatic hernia without obstruction or gangrene; Z86.73 Personal history of transient ischemic attack (TIA), and cerebral infarction without residual deficits

== ENCOUNTER 2019-12-09 05:07 | Inpatient (IN) ==
[2019-11-27 12:37] LABS: Hematocrit (blood only) 45.1 % (42-52); Hemoglobin 15.8 g/dL (14.0-18.0); Mean Corpuscular Hemoglobin 31.7 pg (25-34); Mean Corpuscular Volume 90.4 fL (80-100); Platelet Count 157 K/uL (130-400); RDW Coefficient of Variation 13.7 % (11.5-14.5); RDW Standard Deviation 44.8 fL (36.4-46.3); Red Blood Count 4.99 M/uL (4.7-6.1); White Blood Count 3.02 K/uL (4.8-10.8)
[2019-11-27 13:05] LABS: BUN Creatinine Ratio 17.3 (10-20); Calcium 9.2 mg/dl (8.5-10.1); Creatinine Clr Calc Pharmacy 79.9 ml/min; Est GFR (African American) 75.1; Est GFR (Non-African American) 64.8; Potassium 4.1 mmol/L (3.5-5.1)
[2019-11-27 14:07] LABS: Eosinophils # (auto) 0.02 K/uL (0-0.5); Eosinophils % (auto) 0.7 %; Immature Granulocytes # (auto) 0.01 K/uL (0.00-0.02); Immature Granulocytes % (auto) 0.3 %; Lymphocytes # (auto) 1.55 K/uL (1.2-3.4); Lymphocytes % (auto) 51.3 %; Monocytes % (auto) 9.9 %; Neutrophils # (auto) 1.14 K/uL (1.4-6.5); Neutrophils % (auto) 37.8 %; RBC Morphology Unremarkable
--- NOTE | 2019-12-02 09:52 | Anesthesiology Consultation ---
Date of Service December 02, 2019 Assessment & Plan (1) Encounter for pre-operative examination: Chart Review Chart Review: Acceptable Risk for Surgery and Patient NOT seen in Pre Admission Testing History Surgery Operation Date: 12/09/19 07:30 Proposed Procedures p Robotic-Assisted Laparoscopic Fundoplication, - Michael Markham MD, FACS s Esophagogastroduodenoscopy - Michael Markham MD, FACS Height/Weight Height: 6 ft Weight: 117.934 kg Allergies Allergy/AdvReac Type Severity Reaction Status Date / Time No Known Allergies Allergy nkda Verified 11/18/19 11:55 Medications Home Medications Medication Instructions Recorded Confirmed Last Taken citalopram 40 mg PO QAM 09/15/19 11/18/19 10/22/19 19:30 clopidogrel 75 mg PO QAM 09/15/19 11/18/19 10/22/19 19:30 omeprazole 20 mg PO QAM 09/15/19 11/18/19 10/22/19 19:30 simvastatin 20 mg PO QPM 09/15/19 11/18/19 10/22/19 19:30 Past Medical History Medical History Anxiety BPH (benign prostatic hyperplasia) GERD (gastroesophageal reflux disease) Hyperlipidemia Mini stroke 2016- on plavix Obesity Post traumatic stress disorder Sleep apnea BIPAP Past Family History Family History Sister Cancer bone marrow Mother Heart disease Other No family history of adverse response to anesthesia Past Surgical History Surgical History H/O removal of cyst History of colonoscopy History of esophagogastroduodenoscopy (EGD) History of total left hip replacement History of total right knee replacement (TKR) History of transurethral resection of prostate Hx of appendectomy Hx of inguinal hernia repair right Social History Smoking Status: Never smoker Do You Dip or Chew Tobacco: No Hx Alcohol Use: No Hx Substance Use: No substance use type: does not use Testing Laboratory Results 12/09/19 07:30 12/09/19 07:30 *Error by lab documented date that above labs were done-- correct date for lab draw was 11/27/18* *Also, surgeon office aware of low WBC on preop labs, Elevated glucose on preop labs with no known hx of diabetes. Will recheck glucose AM DOS* Electrocardiogram Date: 09/15/19 NSR at 60bpm. LAD. Minimal voltage criteria for LVH, may be normal variant. No significant change compared to 04/18/12 per cardiology. Chest X-Ray Date: 09/15/19 Atherosclerosis of the aortic arch. Cardiac silhouette normal in size. Mildly low lung volumes. No focal opacity. No large effusion or pneumothorax. Osseous structures normal. Suspected hiatal hernia. IMPRESSION: Mildly low lung volumes. Otherwise no acute cardiopulmonary disease. Hiatal hernia.
[2019-12-09] MEDS ORDERED: LR 15ML/HR IV SCH (06:00)
[2019-12-09] MEDS ORDERED: PROPOFOL IV EMULSION 10 MG/ML 20 ML VIAL IV ONE (06:51)
[2019-12-09] MEDS ORDERED: GLYCOPYRROLATE 0.2 MG/ML VIAL ONE (06:51)
[2019-12-09] MEDS ORDERED: ONDANSETRON INJ 2 MG/ML 2 ML VIAL ONE (06:51)
[2019-12-09] MEDS ORDERED: LIDOCAINE HCL 2% 2 ML VIAL/AMP(20MG/ML) INFIL ONE (06:51)
[2019-12-09] MEDS ORDERED: MIDAZOLAM HCL 1 MG/ML 2ML VIAL ONE (06:52)
[2019-12-09] MEDS ORDERED: fentaNYL citrate 100 MCG/2 ML VIAL ONE ×2 (06:52→08:11)
[2019-12-09] MEDS ORDERED: BUPIVACAINE 0.5 % 5 MG/1 ML MPF 30ML VIAL ONE (07:13)
[2019-12-09] MEDS ORDERED: BUPIVACAINE LIPOSOME 1.3% 266 MG/20 ML VIAL ONE (07:13)
[2019-12-09] MEDS ORDERED: SODIUM CHLORIDE 0.9% PF 50 ML VIAL ONE (07:13)
--- NOTE | 2019-12-09 07:28 | History & Physical Bridge Note ---
Date of Service December 09, 2019 History & Physical Bridge Note I have examined the patient, reviewed the History & Physical and in the interval since the performance of the History & Physical I have noted the following changes of clinical significance: no changes noted
[2019-12-09] MEDS ORDERED: ROCURONIUM BROMIDE 10 MG/ML 5 ML VIAL ONE ×4 (08:10→08:23)
[2019-12-09] MEDS ORDERED: SUCCINYLCHOLINE CHLORIDE 20 MG/ML 10 ML VIAL ONE (08:24)
[2019-12-09] MEDS ORDERED: DEXAMETHASONE SOD INJ 4 MG/ML VIAL ONE (08:24)
[2019-12-09] MEDS ORDERED: PHENYLEPHRINE 100MCG/ML 5ML SYR ONE (08:24)
[2019-12-09] MEDS ORDERED: CLINDAMYCIN PHOS 300 MG/2 ML VIAL ONE (08:24)
[2019-12-09] MEDS ORDERED: ePHEDrine sulfate 50 MG/ML SYR ONE (08:43)
[2019-12-09] MEDS ORDERED: ATROPINE SULFATE 0.1 MG/ML 10ML SYR IV PRN (10:43)
[2019-12-09] MEDS ORDERED: FLUMAZENIL 0.1 MG/1 ML 10 ML VIAL IV PRN (10:43)
[2019-12-09] MEDS ORDERED: ONDANSETRON INJ 2 MG/ML 2 ML VIAL IV PRN (10:43)
[2019-12-09] MEDS ORDERED: HYDROmorphone INJ 1 MG/ML SYRINGE IV PRN (10:43)
[2019-12-09] MEDS ORDERED: PROMETHAZINE HCL 12.5 MG in SODIUM CHLORIDE 0.9% 50 ML IV PRN (10:43)
[2019-12-09] MEDS ORDERED: LABETALOL HCL IV 5 MG/ML 20ML IV PRN (10:43)
[2019-12-09] MEDS ORDERED: ePHEDrine sulfate 50 MG/ML AMP IV PRN (10:43)
[2019-12-09] MEDS ORDERED: NALOXONE HCL 0.4 MG/1 ML VIAL/CARP IV PRN (10:43)
[2019-12-09] MEDS ORDERED: METOCLOPRAMIDE HCL INJ 5 MG/ML 2 ML VIAL ONE (12:20)
[2019-12-09] MEDS ORDERED: METOCLOPRAMIDE HCL INJ 5 MG/ML 2 ML VIAL IV ONE (12:20)
[2019-12-09] MEDS ORDERED: ALBUTEROL HFA INHALER 8.5 GM ONE (12:25)
[2019-12-09] MEDS: fentaNYL citrate 100 MCG/2 ML VIAL IV PRN ×2 (12:27→12:55)
--- NOTE | 2019-12-09 12:39 | XRay Report ---
XR chest 1V portable HISTORY: 68 years-old Male s/p vincent follow-up study in a patient with recent Vincent fundoplication COMPARISON: CT abdomen and pelvis 09/30/2017 TECHNIQUE: Portable AP view of the chest FINDINGS: Cardiac silhouette is enlarged. Mediastinal widening may be secondary to hypoinflation. Lungs are hyp oinflated with left midlung and bibasilar opacities. Blunting of the costophrenic angles. No definite pneumothorax. Possible subcutaneous emphysema of the left supraclavicular distribution. Possible pne umomediastinum. Possible mild pulmonary vascular congestion. Degenerative changes of the shoulders an d spine. IMPRESSION: 1. Hypoinflation with left midlung and left basilar opacities suggestive of atelectasis. 2. Suggested pneumomediastinum without definite pneumothorax. ACT 112: Negative or not required by law. The above report was generated using voice recognition software. It may contain grammatical, syntax o r spelling errors. Electronically signed by: Geremias Perez M.D. 12/09/2019 12:38 PM
--- NOTE | 2019-12-09 13:26 | Anesthesiology Progress Note ---
Date of Service December 09, 2019 Anesthesia Post Procedure Vital Signs Vital Signs: Temp Pulse Pulse Resp BP Pulse Ox 12/09/19 13:20 90 14 145/93 H 92 12/09/19 13:05 89 14 139/90 92 12/09/19 12:55 36.4 C L 92 H 16 153/97 H 92 12/09/19 12:45 89 13 132/98 95 12/09/19 12:35 85 12 155/90 H 92 12/09/19 12:25 86 15 146/94 H 94 12/09/19 12:17 36.3 C L 87 18 154/91 H 93 12/09/19 05:51 37.0 C 56 L 20 148/93 H 96 Transfer of Care Handoff Completed per policy Notes Mental Status: alert / awake / arousable Patient Amnestic to Procedure: Yes Nausea / Vomiting: adequately controlled Pain: adequately controlled Airway Patency, RR, SpO2: stable & adequate BP & HR: stable & adequate Hydration State: stable & adequate Anesthetic Complications: no major complications apparent
--- NOTE | 2019-12-09 13:27 | Operative Report ---
DATE OF OPERATION: 12/09/2019 PREOPERATIVE DIAGNOSES: Hiatal hernia with gastroesophageal reflux. POSTOPERATIVE DIAGNOSES: Hiatal hernia with gastroesophageal reflux. PROCEDURES PERFORMED: 1. Robot-assisted laparoscopic repair of hiatal hernia. 2. Floppy Wang fundoplication. SURGEON: Michael Markham MD. RETAIL SALES REPRESENTATIVE: SAKSHI Heard ( Isaiah was present for the entire case and was instrumental at the patient's bedside while I was at the robot console). ANESTHESIA: General anesthesia, endotracheal intubation. INDICATION FOR PROCEDURE AND FINDINGS: A 68-year-old male who has symptomatic gastroesophageal reflux disease, also has a hiatal hernia. He has been worked up by Dr. Horvath and had an endoscopy as well as a barium swallow. The patient has a productive cough, which may well be related to his reflux at night. He is medically refractory. It is felt that his reflux is in part responsible for his cough. We had a long talk about this in the office and elected to proceed with a repair. On 12/09/2019, the patient underwent an uncomplicated repair of his hiatal hernia. This went easily and I did not use a patch. It was under no tension. He had a great deal of scar tissue with adhesions in his stomach going into his hiatal hernia. I took this down and took a very large hernia sac as well as the gastroesophageal fat pad. I identified the vagus nerves. We did a floppy Wang fundoplication. He tolerated it well. DESCRIPTION OF PROCEDURE: The patient was brought to the operating room, laid in supine position. General anesthesia induced and endotracheal intubation was performed. After appropriate monitoring lines had been placed, the patient had a camera port placed in the midline. We did this under laparoscopic guidance and we got into the peritoneal cavity without difficulty. There was no evidence of any adhesions. We then placed 10 mm ports in the midclavicular line on both sides and put 5 mm ports laterally and more inferiorly on both sides. We also placed a 12 mm physiotherapist's assistant's port to the left of the umbilicus. The patient was then placed in reverse Trendelenburg position, and using the pretzel retractor, we retracted the left lobe of the liver off of the hiatus, which was easily visualized. The camera was docked. We had excellent visualization of the hiatus. I started off by using the vessel sealer and took down the short gastric arteries and there were marked adhesions and a large amount of omentum, which had to be divided away from the stomach. I then came along posteriorly and freed up some flimsy adhesions there. I then went up to the left crura starting off anteriorly. I developed a plane from the hernia sac and brought it down inferiorly. There were marked adhesions inferiorly, which were taken down with excellent visualization. We then retracted the stomach up to the patient's left and took down the pars flaccida and came down to the right crura. We then met our dissection anteriorly and then took down multiple adhesions posteriorly, we were able to free up and finally got around the esophagus and put a 1-inch Hudson around this for retraction. I then delicately dissected out the intrathoracic esophagus. We identified the posterior and anterior vagus nerves. We had excellent visualization all the way up. I then meticulously took down this huge hernia sac and got it all out and then divided it away from the GE junction and took the gastroesophageal fat pad. This was a tedious dissection, but we finally got it all done. The hernia sac was huge with the GE fat pad. We placed this in an Endobag but left it in the abdomen, it was too large to pull out through our ports. I identified the posterior crura both the right and left, and using a 0 silk, I did a [id number] suture x2 to pull these crura together. This was done under no tension. I did add one more single 0 silk suture closer to the esophagus. We did not make this too tight. The stomach easily came around the back of the esophagus and this sat very nicely. Using a 2-0 silk, I sutured the anterior to posterior fundus together just under the GE junction. I then placed 2 more sutures into the anterior and posterior fundus including the esophagus, 1 cm apart. I then placed a single 2-0 silk suture into the fundus and the anterior crura. This sat very nicely. Irrigated out the abdomen and saw no evidence of any bleeding. We then undocked the robot, placed the patient back into the supine position; however, we could not get this sac out with the Endobag. For this reason, we pulled it up to the skin surface through the physiotherapist's assistant's port site after removing the port and then I took this out piecemeal with the edges of the bag, pulling it up and I pulled it out with a Yen and finally got the entire sac and fat out. We saw no evidence of bleeding. A #1 Maxon was used to close the physiotherapist's assistant's port and the camera port. A 4-0 Monocryl was used in running subcuticular fashion to approximate the wound edges after we allowed all the carbon dioxide to be evacuated from the peritoneal cavity. The patient tolerated the procedure well except for the fact that he had gross hematuria that started midway through the case. It was an atraumatic insertion of the Rueda. We are going to leave our Rueda catheter and have urology see him. I attest to the content of the Intraoperative Record and any orders documented therein. Any exception s are noted below.
[2019-12-09] MEDS ORDERED: NEOSTIGMINE METHYLSULFATE 5 MG/5 ML SYR ONE (13:42)
[2019-12-09] MEDS: MoRPHine SULFATE 2 MG/ML CARP IV PRN ×5 (14:17→19:09)
[2019-12-09] MEDS: D5W AND 1/2NSS 1,000 ML IV SCH (14:17)
[2019-12-09] MEDS: ONDANSETRON INJ 2 MG/ML 2 ML VIAL IV SCH ×3 (14:17→22:36)
[2019-12-09] MEDS ORDERED: PNEUMOCOCCAL Polysaccharide Vaccine 25mcg/0.5mL vial/Syr IM ONE (16:30)
--- NOTE | 2019-12-09 18:27 | Urology Consultation ---
Date of Consultation December 09, 2019 Assessment & Plan (1) Gross hematuria: I think the catheter placement stirred up bleeding from large friable vessels in the large prostate it is clearing he may have a void trial at any time. I suggest morning as he is very agitated due to pain and getting in and out of bed to toilet might worsen his chest pain from incision He will be seeing me in early december and we will assess the recurring bleeding he is having in the meantime I suggest starting finasteride 5mg daily which can shrink prostate blood vessels and control prostate bleeding. Present on Admission?: No History of Present Illness Reason for Consultation: gross hematuria Requesting Physician: Aron Colon PA-C Attending Physician: Michael Markham MD, FACS History of Present Illness I am asked by Aron Colon PA-C to evaluate and treat patient for gross hematuria. he had hiatal hernia surgery today and mid case the anne output was noted to be grossly bloody. The anne catheter placement was reportedly unco mplicated. Patient has the anne still and the urine is a orange yellow color without blood presently. Patient reports that over the last month or 2 he has had self limiting gross hematuria several times. He has a very large prostate and had a TURP prostate surgery in 2017. He is voiding well at home. Allergies Allergy/AdvReac Type Severity Reaction Status Date / Time No Known Allergies Allergy nkda Verified 12/09/19 05:41 Home Medications Home Medications Medication Instructions Recorded Confirmed Type citalopram 40 mg PO QAM 09/15/19 12/09/19 History clopidogrel 75 mg PO QAM 09/15/19 12/09/19 History omeprazole 20 mg PO QAM 09/15/19 12/09/19 History simvastatin 20 mg PO QPM 09/15/19 12/09/19 History Patient History Medical History Anxiety BPH (benign prostatic hyperplasia) GERD (gastroesophageal reflux disease) Hyperlipidemia Mini stroke 2016- on plavix Obesity Post traumatic stress disorder Sleep apnea BIPAP Surgical History H/O removal of cyst History of colonoscopy History of esophagogastroduodenoscopy (EGD) History of total left hip replacement History of total right knee replacement (TKR) History of transurethral resection of prostate Hx of appendectomy Hx of inguinal hernia repair right Family History Sister Cancer bone marrow Mother Heart disease Other No family history of adverse response to anesthesia Social History (Updated 11/12/19 @ 10:45 by Meli Grajeda RN) Preferred Language: Croatian Communication Ability: Effective Belt Sander Stone Required: No Beliefs That Will Affect Care: None marital status: Current Living Situation: Spouse current occupational status: retired Other Information That Helps Us Care for You: No Feels Safe at Home: Yes Safety Concerns: Feels Safe At This Time Smoking Status: Never smoker Do You Dip or Chew Tobacco: No ; Second Hand Exposure: No ; Tobacco Cessation Education Requested by Patient: No Hx Alcohol Use: No Hx Substance Use: No Review of Systems Review of Systems: PMH- GERD, hiatal hernia allergies none soc- no tobacco, retired Ros- + severe chest and mid back pain from the surgery. just had morphine and it is not helping. No nausea or emesis, no seizures no fever or chills, bowels are somewhat slow chronically Physical Exam Constitutional: WD/WN, vitals as above well developed, + obese, healthy appearing and + in distress he cannot hold still due to pain, he is agitated due to pain. Eyes: PERRL, conjunctivae normal, anicteric sclerae Respiratory: normal respiratory effort and able to speak in complete sentences; no respiratory distress, no labored breathing and no cough Gastrointestinal (Abdomen): Inspection/Auscultation: abdomen normal to inspection and + abdomen distended Percussion/Palpation: + abdomen tender Skin: no rashes, warm and dry Psychiatric: Orientation: alert, oriented x 3 and cooperative Genitourinary: anne in place draining meng urine no blood at this time. Results & Data Vital Signs (Past 12 Hours) Vital Signs Temp Pulse Pulse Resp BP BP Pulse Ox 12/09/19 16:25 36.5 C 89 18 154/98 H 93 12/09/19 15:49 36.4 C L 88 18 161/90 H 94 12/09/19 15:27 36.6 C 92 H 18 169/100 H 94 12/09/19 14:27 36.3 C L 92 H 21 144/94 H 93 12/09/19 13:30 36.6 C 91 H 16 143/89 H 92 12/09/19 13:20 90 14 145/93 H 92 12/09/19 13:05 89 14 139/90 92 12/09/19 12:55 36.4 C L 92 H 16 153/97 H 92 12/09/19 12:45 89 13 132/98 95 12/09/19 12:35 85 12 155/90 H 92 12/09/19 12:25 86 15 146/94 H 94 12/09/19 12:17 36.3 C L 87 18 154/91 H 93 Pulse Ox 12/09/19 16:25 12/09/19 15:49 93 12/09/19 15:27 12/09/19 14:27 12/09/19 13:30 92 12/09/19 13:20 12/09/19 13:05 12/09/19 12:55 12/09/19 12:45 12/09/19 12:35 12/09/19 12:25 12/09/19 12:17
[2019-12-09] MEDS ORDERED: KETOROLAC TROMETHAMINE 15 MG/ML VIAL IV SCH (20:00)
[2019-12-09] MEDS ORDERED: KETOROLAC TROMETHAMINE 15 MG/ML VIAL IV ONE (20:15)
[2019-12-09] MEDS: ACETAMINOPHEN 1,000 MG/100 ML VIAL IV SCH (20:25)
[2019-12-09] MEDS: DOCUSATE SODIUM 100 MG CAP PO SCH (20:26)
[2019-12-09] MEDS: METOCLOPRAMIDE HCL INJ 5 MG/ML 2 ML VIAL IV SCH (20:26)
[2019-12-09] MEDS: SIMVASTATIN 20 MG TAB PO SCH (22:36)
[2019-12-10] MEDS: D5W AND 1/2NSS 1,000 ML IV SCH (00:06)
[2019-12-10] MEDS: ONDANSETRON INJ 2 MG/ML 2 ML VIAL IV SCH ×6 (02:10→21:39)
[2019-12-10] MEDS: METOCLOPRAMIDE HCL INJ 5 MG/ML 2 ML VIAL IV SCH (04:29)
[2019-12-10] MEDS: ACETAMINOPHEN 1,000 MG/100 ML VIAL IV SCH (04:29)
[2019-12-10] MEDS: KETOROLAC TROMETHAMINE 15 MG/ML VIAL IV SCH ×2 (04:29→11:00)
[2019-12-10] MEDS: MoRPHine SULFATE 2 MG/ML CARP IV PRN ×8 (07:07→23:17)
--- NOTE | 2019-12-10 08:39 | Fluoroscopy Report ---
FL barium swallow w/o air CLINICAL HISTORY: 68 years-old Male with s/p vincent. Status post Vincent fundoplication TECHNIQUE: Barium contrast was administered to the patient under fluoroscopic examination. Multiple images were obtained and submitted for review. FLUOROSCOPY TIME: 0.6 minutes. 19 images were submitted Comparison: Barium swallow study 10/30/2019. Findings: During deglutition, contrast material flowed freely through the cervical esophagus. No filling defec t or mucosal abnormality is identified. No abnormal stricturing or mass effect is seen. The mid to distal esophagus is well coated and distended. Postoperative changes of recent Vincent fundoplication. Contrast flows freely through the wrap into the stomach and duodenum. No stricture or extravasation to suggest leak. No reflux identified. IMPRESSION: Expected findings status post Vincent fundoplication. No evidence of contrast extravasati on to suggest leak. ACT 112: Negative or not required by law. The above report was generated using voice recognition software. It may contain grammatical, syntax o r spelling errors. Electronically signed by: Geremias Perez M.D. 12/10/2019 8:38 AM
[2019-12-10] MEDS: CITALOPRAM 40 MG TAB PO SCH (08:43)
[2019-12-10] MEDS: DOCUSATE SODIUM 100 MG CAP PO SCH ×2 (08:43→21:35)
[2019-12-10] MEDS: PANTOprazole 40 MG TAB PO SCH (08:43)
[2019-12-10] MEDS: ACETAMINOPHEN 325 MG TAB PO SCH ×3 (09:11→21:37)
--- NOTE | 2019-12-10 09:36 | Anesthesiology Progress Note ---
Date of Service December 10, 2019 Anesthesia Post Procedure Vital Signs Vital Signs: Temp Pulse Pulse Resp BP BP Pulse Ox 12/10/19 07:31 12/10/19 07:18 36.4 C L 72 17 120/75 92 12/10/19 05:15 90 12/10/19 04:37 36.9 C 80 20 145/85 H 96 12/10/19 02:28 12/10/19 00:40 36.8 C 65 18 132/82 94 12/09/19 22:30 36.9 C 69 18 137/78 94 12/09/19 22:05 12/09/19 20:44 36.9 C 93 H 18 151/88 H 90 12/09/19 19:57 136/87 12/09/19 18:31 36.8 C 106 H 20 169/103 H 91 12/09/19 16:25 36.5 C 89 18 154/98 H 93 12/09/19 15:49 36.4 C L 88 18 161/90 H 94 12/09/19 15:27 36.6 C 92 H 18 169/100 H 94 12/09/19 14:27 36.3 C L 92 H 21 144/94 H 93 12/09/19 13:30 36.6 C 91 H 16 143/89 H 92 12/09/19 13:20 90 14 145/93 H 92 12/09/19 13:05 89 14 139/90 92 12/09/19 12:55 36.4 C L 92 H 16 153/97 H 92 12/09/19 12:45 89 13 132/98 95 12/09/19 12:35 85 12 155/90 H 92 12/09/19 12:25 86 15 146/94 H 94 12/09/19 12:17 36.3 C L 87 18 154/91 H 93 Pulse Ox Pulse Ox 12/10/19 07:31 92 12/10/19 07:18 12/10/19 05:15 12/10/19 04:37 12/10/19 02:28 92 12/10/19 00:40 12/09/19 22:30 12/09/19 22:05 94 12/09/19 20:44 12/09/19 19:57 12/09/19 18:31 12/09/19 16:25 12/09/19 15:49 93 12/09/19 15:27 12/09/19 14:27 12/09/19 13:30 92 12/09/19 13:20 12/09/19 13:05 12/09/19 12:55 12/09/19 12:45 12/09/19 12:35 12/09/19 12:25 12/09/19 12:17 Pain Intensity Abdomen: Pain Intensity: 7 Notes Mental Status: alert / awake / arousable and participated in evaluation Patient Amnestic to Procedure: Yes Nausea / Vomiting: adequately controlled Pain: adequately controlled Airway Patency, RR, SpO2: stable & adequate BP & HR: stable & adequate Hydration State: stable & adequate Anesthetic Complications: no major complications apparent and Pt Satisfied with anesthetic care
--- NOTE | 2019-12-10 09:46 | Progress Note ---
DATE: 12/10/2019 Mr. Garland was seen today. His barium swallow shows no evidence of leak. The dye goes through to the small bowel without difficulty. The wrap appears appropriate. He had more pain than normal. He is better than he was last night. He has responded to the Toradol and acetaminophen. We are going to keep him as he is still on O2. We are going to stop all his IVs and other lines and get him up ambulating. If he stabilizes, I may send him home this afternoon off of oxygen.
--- NOTE | 2019-12-10 13:48 | Progress Note ---
DATE: 12/10/2019 Mr. Garland was seen today. His study looked quite good this morning; however, I was concerned that he is hypoxic. He is also complaining of significant amount of pain. I am going to admit him and keep him overnight. He has been ambulating. He is tolerating liquids, but again pain control is an issue. He is requiring parenteral narcotics even though we are trying to wean this off. In addition, he is also on oxygen. If he is not weaned off the oxygen tomorrow, we will ship him home on oxygen. In the meantime, I would feel better if we were to keep him. He does have bowel sounds, but his abdomen is fairly tense.
[2019-12-10] MEDS ORDERED: CLOPIDOGREL BISULFATE 75 MG TAB PO ONE (14:00)
[2019-12-10] MEDS: ENOXAPARIN INJ 40 MG/0.4 ML SYR SQ SCH (14:16)
--- NOTE | 2019-12-10 16:12 | Electrocardiogram Report ---
Test Reason : Blood Pressure : / mmHG Vent. Rate : 086 BPM Atrial Rate : 086 BPM P-R Int : 158 ms QRS Dur : 090 ms QT Int : 390 ms P-R-T Axes : 018 -21 032 degrees QTc Int : 466 ms Normal sinus rhythm with frequent Premature atrial complexes Borderline ECG When compared with ECG of 15-SEP-2019 17:09, Premature atrial complexes are now Present Confirmed by John Nichols ([id number]) on 12/10/2019 4:12:05 PM Referred By: Michael Markham Confirmed By:John Nichols
[2019-12-10] MEDS ORDERED: POLYETHYLENE (MIRALAX) 17 GM PACK PO STA (21:29)
[2019-12-10] MEDS ORDERED: bisacodyL 10 MG SUPP PR STA (21:31)
[2019-12-10] MEDS: SIMVASTATIN 20 MG TAB PO SCH (21:35)
[2019-12-11] MEDS: ACETAMINOPHEN 325 MG TAB PO SCH ×3 (02:15→14:36)
[2019-12-11] MEDS: ONDANSETRON INJ 2 MG/ML 2 ML VIAL IV SCH ×4 (02:15→13:23)
[2019-12-11] MEDS: MoRPHine SULFATE 2 MG/ML CARP IV PRN ×3 (06:40→15:32)
--- NOTE | 2019-12-11 08:34 | XRay Report ---
XR chest 1V portable CLINICAL HISTORY: hypoxia COMPARISON STUDY: Chest radiograph 12/09/2019. FINDINGS: Pneumothoraces shown on exam of December 09, 2019 are no longer identified. Lung volumes ar e diminished. Small left pleural effusion is noted with persistent left basilar opacity. There is no evidence for pulmonary edema. IMPRESSION: 1. Interval resolution of the bilateral pneumothoraces shown on prior exam. 2. Persistent left basilar opacity and a small left pleural effusion. 3. Low lung volumes. ACT 112: Negative or not required by law. Electronically signed by: Jamie Miles M.D. 12/11/2019 8:33 AM
[2019-12-11] MEDS: CITALOPRAM 40 MG TAB PO SCH (09:03)
[2019-12-11] MEDS: DOCUSATE SODIUM 100 MG CAP PO SCH (09:03)
[2019-12-11] MEDS: PANTOprazole 40 MG TAB PO SCH (09:04)
[2019-12-11] MEDS: ENOXAPARIN INJ 40 MG/0.4 ML SYR SQ SCH (09:05)
--- NOTE | 2019-12-11 14:35 | Discharge Summary ---
ADMISSION DIAGNOSES: 1. Hiatal hernia. 2. GERD. HOSPITAL COURSE: This is a 68-year-old male who was seen and evaluated by Dr. Markham as an outpatient secondary to intractable GERD and hiatal hernia. On date of admission Dr. Markham took the patient to the operating room and performed a robotic-assisted laparoscopic reduction of hiatal hernia and Wang fundoplication. Intraoperative EGD was not performed. On postoperative day 1 the patient did have a barium swallow that showed that his stomach was emptying appropriately and there was no extravasation of progress noted. It should be noted the patient did have gross hematuria noted in his Rueda catheter intraoperatively; however, this was felt to be just due to irritation of his prostate. He was seen by urology. No other intervention was needed. His Rueda was removed and he did void without difficulty. During his postoperative course he did tolerate liquid diet well. He did not have any symptomatology of gastroesophageal reflux disease. During patient's postoperative course he was noted to have hypoxia and a 2-step exercise was performed prior to discharge. This revealed that he required 2 liters of oxygen with activity via nasal cannula, but not at rest. This was arranged by geriatric social worker and he was discharged home on postoperative day #2. Concerning wound care, patient was told he could remove his dressings and shower in 3 days but not take any tub baths. Concerning patient's diet he was told maintain a full liquid diet and not eat any foods that require chewing, specifically meat or bread. He was told his diet will be advanced at the discretion of Dr. Markham in the ensuing followup. Concerning the patient's home medications, all of his home medications are the same with the exception of new medications added which included Ultram as needed for pain and Zofran as needed for nausea and vomiting. The patient will have follow up with Dr. Markham in approximately 1 week. Our office will call to verify time and date of appointment.
== END 2019-12-11 15:45 | disposition home or self-care (01) | DRG 328 ==
LOC: 3N 05:07 → ASU 05:07

== ENCOUNTER 2021-12-29 20:48 | Observation (INO) ==
--- NOTE | 2021-12-29 21:24 | Emergency Department Note ---
History of Present Illness General Chief complaint: Hematuria Stated complaint: BLOOD CLOTS IN URINE, DIARRHEA, HEADACHE, Time Seen by Provider: 12/29/21 21:09 Source: patient and family ( who is at the bedside) Mode of arrival: ambulatory Limitations: no limitations History of Present Illness Maximum Pain Intensity: 0 This patient is a 71-year-old male who comes in with hematuria. Is been dark since this morning. He denies dysuria. No history of similar. He does have history of BPH and a TURP. He is on Plavix for history of mini stroke he does not have any cardiac stents he is also had a cough this been nonproductive and is worse when he lays flat. He has had back pain for 3 days in the right side it radiates towards his leg and he thought it was sciatica. No trauma or injury. No focal numbness or weakness. He has had the COVID vaccine and booster. No sick contacts. No chest pain. He has passed some clots but has been urinating without difficulty Home Medications Medication Instructions Recorded Confirmed Type clopidogrel 75 mg tablet 75 mg PO QAM 09/15/19 12/29/21 History omeprazole 20 mg capsule,delayed 20 mg PO QAM 09/15/19 12/29/21 History release simvastatin 20 mg tablet 20 mg PO QPM 09/15/19 12/29/21 History cholecalciferol (vitamin D3) 25 0 mcg PO DIRECTED 12/29/21 12/29/21 History mcg (1,000 unit) capsule (Vitamin D3) citalopram 40 mg tablet 40 mg PO DAILY 12/29/21 12/29/21 History melatonin 5 mg tablet 5 mg PO HS 12/29/21 12/29/21 History Allergies Allergy/AdvReac Type Severity Reaction Status Date / Time No Known Allergies Allergy nkda Verified 12/29/21 21:53 Past Med/Surg History Medical History (Updated 12/30/21 @ 01:54 by Placido Tripp MD) Anxiety BPH (benign prostatic hyperplasia) GERD (gastroesophageal reflux disease) Hyperlipidemia Mini stroke 2016- on plavix Obesity Post traumatic stress disorder Sleep apnea BIPAP Surgical History H/O removal of cyst History of colonoscopy History of esophagogastroduodenoscopy (EGD) History of total left hip replacement History of total right knee replacement (TKR) History of transurethral resection of prostate Hx of appendectomy Hx of inguinal hernia repair right Family History Sister Cancer bone marrow Mother Heart disease Other No family history of adverse response to anesthesia Social History Smoking Status: Never smoker Second Hand Exposure: No; Hx Alcohol Use: Yes Alcohol type: beer Hx Substance Use: No Preferred Language: Syrian Communication Ability: Effective Explosive Expert Required: No Beliefs That Will Affect Care: None marital status: Current Living Situation: Spouse current occupational status: retired Feels Safe at Home: Yes Safety Concerns: Feels Safe At This Time Assistive Devices: BiPap, Denture - Upper, Denture - Lower and Hearing Aid - Bilateral Review of Systems A total of 10 systems reviewed and were otherwise negative Physical Exam Vital Signs Vital Signs - 24 hr 12/29/21 20:55 12/29/21 21:42 12/29/21 22:57 Temperature 36.6 C Temperature Source Temporal Artery Scan Pulse Rate 88 Pulse Rate [Apical] 68 Respiratory Rate 16 18 Respiratory Effort / Characteristics Non-Labored Respiratory Depth Normal Blood Pressure 136/83 Blood Pressure [Right Arm] 138/81 Blood Pressure Mean 100 Blood Pressure Mean [Right Arm] 100 Blood Pressure Position Sitting Pulse Oximetry 94 93 92 Oxygen Delivery Method Room Air Room Air Room Air Sepsis Recent Fever Within 48 Hours No Sepsis New/Unexplained Change in Mental Status No Sepsis Action Taken by Nursing No Action Required General: Well developed well nourished older male who appears in no acute distress, breathing comfortably on room air. Normal speech HEENT: Normal cephalic atraumatic. Pupils are equal round and reactive to light. Extraocular movements are intact. Oropharynx is pink with moist mucous membranes. No swelling of the mouth lips or tongue. Neck: Supple with a midline trachea. No meningeal signs or stiffness, no JVD or bruits. No Stridor. Chest: Clear to auscultation bilaterally. No wheezes or rhonchi. No increased work of breathing. Heart: Regular rate and rhythm without murmurs or gallops. Abdomen: Soft nontender, nondistended without rebound guarding or rigidity. His urine sample is dark red. Extremities: No cyanosis clubbing or edema. No calf tenderness or assymetry Spine/Back. Non tender to palpation. No CVA tenderness Skin: Good turgor without rashes. Neurologic exam: Cranial nerves two through 12 are intact. Motor and sensation are intact and symmetrical throughout. Course Administered Medications Ceftriaxone Sodium 2,000 mg/ (Dextrose) 70 mls @ 100 mls/hr IV Q24H ROBIN; Protocol Stop: 01/09/22 01:59 Last Admin: 12/30/21 01:48 Dose: 100 mls/hr Documented by: [id number] Lactated Ringer's (Lr) 1,000 mls @ 80 mls/hr IV .[id number] ROBIN Stop: 01/29/22 01:16 Last Admin: 12/30/21 01:49 Dose: 80 mls/hr Documented by: [id number] Discontinued Medications Acetaminophen (Acetaminophen 325 Mg Tab) 650 mg PO NOW STA Stop: 12/29/21 22:33 Last Admin: 12/29/21 22:55 Dose: 650 mg Documented by: [id number] Medical Decision Making Differential Diagnosis Hematuria, kidney stone, infection, UTI, bladder mass, electrolyte or metabolic abnormality Medical Records Attestation: I reviewed the patient's medical records. Home Medications Current Medication List: was personally reviewed by me Laboratory Data Attestation: I reviewed the patient's lab results. Result diagrams: 12/29/21 21:35 12/29/21 21:35 Lab Results 12/29/21 12/29/21 12/29/21 Range/Units 21:35 21:35 21:35 WBC 7.55 (4.8-10.8) K/uL RBC 4.30 L (4.7-6.1) M/uL Hgb 13.2 L (14.0-18.0) g/dL Hct 39.9 L (42-52) % MCV 92.8 (80-100) fL MCH 30.7 (25-34) pg MCHC 33.1 (32-36) g/dL RDW Std Deviation 49.0 H (36.4-46.3) fL RDW Coeff of Leonora 14.4 (11.5-14.5) % Plt Count 157 (130-400) K/uL MPV 12.1 H (7.4-10.4) fL Immature Gran % (Auto) 0.4 % Neut % (Auto) 39.6 % Lymph % (Auto) 20.3 % Marion % (Auto) 39.3 % Eos % (Auto) 0.1 % Baso % (Auto) 0.3 % Neut # (Auto) 2.99 (1.4-6.5) K/uL Lymph # (Auto) 1.53 (1.2-3.4) K/uL Marion # (Auto) 2.97 H (0.11-0.59) K/uL Eos # (Auto) 0.01 (0-0.5) K/uL Baso # (Auto) 0.02 (0-0.2) K/uL Immature Gran # (Auto) 0.03 H (0.00-0.02) K/uL PT 11.0 (9.0-12.0) Seconds INR 1.0 (0.9-1.1) APTT 27.1 (21.0-31.0) Seconds PTT Ratio 1.0 Sodium 139 (136-145) mmol/L Potassium 3.6 (3.5-5.1) mmol/L Chloride 108 H (98-107) mmol/L Carbon Dioxide 24 (21-32) mmol/L Anion Gap 7 (3-11) BUN 20 (6-23) mg/dl Creatinine 0.90 (0.6-1.4) mg/dl Est Cr Clr Drug Dosing 91.3 ml/min Est GFR ( Amer) 97.9 ml/min Est GFR (Non-Af Amer) 84.4 ml/min BUN/Creatinine Ratio 22.2 H (10-20) Glucose 145 H (70-99(Fasting)) mg/dl Calcium 9.5 (8.5-10.1) mg/dl Total Bilirubin 1.1 H (0.2-1.0) mg/dl AST 16 (13-39) U/L ALT 15 (7-52) U/L Alkaline Phosphatase 48 (34-104) U/L Total Protein 7.3 (6.0-8.3) gm/dl Albumin 4.3 (3.4-5.0) gm/dl Globulin 3.0 (2.5-4.0) gm/dl Albumin/Globulin Ratio 1.4 (0.9-2) Lipase 21 (11-82) U/L Urine Color Urine Appearance (Clear) Urine pH (4.5-7.5) Ur Specific Mcdavid (1.000-1.030) Urine Protein (Negative) Urine Glucose (UA) (Negative) Urine Ketones (Negative) Urine Blood (Negative) Urine Nitrite (Negative) Urine Bilirubin (Negative) Urine Urobilinogen (Negative) Ur Leukocyte Esterase (Negative) Urine RBC (0-4) /hpf Urine WBC (0-5) /hpf Ur Epithelial Cells (0-5) /lpf Urine Bacteria (Negative) SARS-CoV-2, RNA, NAAT (NEGATIVE) 12/29/21 12/29/21 Range/Units 21:35 21:35 WBC (4.8-10.8) K/uL RBC (4.7-6.1) M/uL Hgb (14.0-18.0) g/dL Hct (42-52) % MCV (80-100) fL MCH (25-34) pg MCHC (32-36) g/dL RDW Std Deviation (36.4-46.3) fL RDW Coeff of Leonora (11.5-14.5) % Plt Count (130-400) K/uL MPV (7.4-10.4) fL Immature Gran % (Auto) % Neut % (Auto) % Lymph % (Auto) % Marion % (Auto) % Eos % (Auto) % Baso % (Auto) % Neut # (Auto) (1.4-6.5) K/uL Lymph # (Auto) (1.2-3.4) K/uL Marion # (Auto) (0.11-0.59) K/uL Eos # (Auto) (0-0.5) K/uL Baso # (Auto) (0-0.2) K/uL Immature Gran # (Auto) (0.00-0.02) K/uL PT (9.0-12.0) Seconds INR (0.9-1.1) APTT (21.0-31.0) Seconds PTT Ratio Sodium (136-145) mmol/L Potassium (3.5-5.1) mmol/L Chloride (98-107) mmol/L Carbon Dioxide (21-32) mmol/L Anion Gap (3-11) BUN (6-23) mg/dl Creatinine (0.6-1.4) mg/dl Est Cr Clr Drug Dosing ml/min Est GFR ( Amer) ml/min Est GFR (Non-Af Amer) ml/min BUN/Creatinine Ratio (10-20) Glucose (70-99(Fasting)) mg/dl Calcium (8.5-10.1) mg/dl Total Bilirubin (0.2-1.0) mg/dl AST (13-39) U/L ALT (7-52) U/L Alkaline Phosphatase (34-104) U/L Total Protein (6.0-8.3) gm/dl Albumin (3.4-5.0) gm/dl Globulin (2.5-4.0) gm/dl Albumin/Globulin Ratio (0.9-2) Lipase (11-82) U/L Urine Color Red Urine Appearance Turbid A (Clear) Urine pH (4.5-7.5) Ur Specific Mcdavid 1.017 (1.000-1.030) Urine Protein (Negative) Urine Glucose (UA) (Negative) Urine Ketones (Negative) Urine Blood (Negative) Urine Nitrite (Negative) Urine Bilirubin (Negative) Urine Urobilinogen (Negative) Ur Leukocyte Esterase (Negative) Urine RBC >30 H (0-4) /hpf Urine WBC 10-30 H (0-5) /hpf Ur Epithelial Cells 0-5 (0-5) /lpf Urine Bacteria Negative (Negative) SARS-CoV-2, RNA, NAAT NEGATIVE (NEGATIVE) Imaging Data Attestation: I personally reviewed and interpreted this imaging study as follows: My Impression: Chest x-rayno acute infiltrate, failure, pneumothorax seen. There is some mild increased interstitial markings diffusely. Radiologist's Impression: Abdomen/Pelvis CT 12/29/21 21:21 CT abd pelvis wo con CLINICAL HISTORY: heamturia, rt flank pain TECHNIQUE: Helical axial images of the abdomen and pelvis were obtained. Automated dose lowering techniques and/or adjustment according to patient size were utilized for this exam. This exam was performed without intravenous co ntrast. COMPARISON: Comparison is made to CT abdomen pelvis 09/30/2017 FINDINGS: Lower chest: No acute abnormality Liver: Hepatic steatosis is noted. Gallbladder and biliary tree: Cholelithiasis is seen without evidence of cholecystitis. No intra- or extrahepatic biliary ductal dilation. Pancreas: Unremarkable, no focal lesions. Spleen: Splenomegaly is noted, the spleen measures 12.9 cm. Adrenals: Unremarkable. Kidneys and ureters: Exophytic cyst is seen in the right kidney inferior pole. No evidence of hydronephrosis. No obstructing nephrolithiasis is seen. Bladder: Soft tissue density is seen in mild diffuse bladder wall thickening is seen. The posterior inferior aspect of the bladder are seen. Reproductive organs: Prostatomegaly is seen. Bowel: A hiatal hernia is seen. Lymph nodes Retroperitoneal: Unremarkable. Mesenteric: Unremarkable. Pelvic: Unremarkable. Peritoneum: Normal. Vessels: Atherosclerotic calcifications are seen. Abdominal wall: A fat-containing umbilical hernia is seen. Bones: There is a total left hip arthroplasty. Mild degenerative changes are seen. IMPRESSION: There is soft tissue density in the posterior inferior portion of the bladder. In part, this may represent extension of the hypertrophic prostate, there is likely a component of either bladder wall mass or dependent clots. Correlation with cystography is recommended. No evidence of metastatic disease. ACT 112: Negative or not required by law. Electronically signed by: Jeff Lopes M.D. 12/29/2021 10:02 PM [facility] Narrative This patient comes in as described above he has had gross hematuria. he is on P lavix for a remote history of mini stroke. He is then emptying his bladder without difficulty. I have asked established multiple blood testing was obtained I did order urinalysis and a CAT scan of the abdomen. His urinalysis is somewhat uninterpretable secondary to the large amount of blood. He has no fever or white count to suggest infection is normal renal function. He has no significant acrylate or metabolic abnormalities. CAT scan shows what appears to be a mass or possibly a clot in the prostate. I did discuss the case on the telephone with Dr. Bond, urology. He said that the patient does need cystoscopy that can be done either as inpatient or outpatient provided the patient is urinating. I talked to the patient and his they live far from here he has been passing clots and I am concerned that he will not make it all weekend without having a problem in light of this we will keep him in the hospital and Dr. Bond can see him when he is in. I did consult Dr. Jackman to see the patient in the ED and the patient has remained stable. Covid testing was negative. Impression & Plan Gross hematuria, Bladder mass, [facility] (current) use of antithrombotics/antiplatelets, Lab test negative for COVID-19 virus Discharge Plan Visit Data Chief Complaint: Hematuria Stated Complaint: BLOOD CLOTS IN URINE, DIARRHEA, HEADACHE, ED Provider: Placido Tripp Discharge Problem: Gross hematuria, Bladder mass, [facility] (current) use of antithrombotics/antiplatelets, Lab test negative for COVID-19 virus Patient Disposition: Admitted As Inpatient Discharge Instructions Interventions: ED Discharge Assessment Last Done: 12/30/21 00:57
[2021-12-29 21:47] LABS: Basophils # (auto) 0.02 K/uL (0-0.2); Basophils % (auto) 0.3 %; Eosinophils # (auto) 0.01 K/uL (0-0.5); Eosinophils % (auto) 0.1 %; Hematocrit (blood only) 39.9 % (42-52); Hemoglobin 13.2 g/dL (14.0-18.0); Immature Granulocytes # (auto) 0.03 K/uL (0.00-0.02); Immature Granulocytes % (auto) 0.4 %; Lymphocytes # (auto) 1.53 K/uL (1.2-3.4); Lymphocytes % (auto) 20.3 %; Mean Corpuscular Hemoglobin 30.7 pg (25-34); Mean Corpuscular Hgb Conc 33.1 g/dL (32-36); Mean Corpuscular Volume 92.8 fL (80-100); Mean Platelet Volume 12.1 fL (7.4-10.4); Monocytes # (auto) 2.97 K/uL (0.11-0.59); Monocytes % (auto) 39.3 %; Neutrophils # (auto) 2.99 K/uL (1.4-6.5); Neutrophils % (auto) 39.6 %; Platelet Count 157 K/uL (130-400); RDW Coefficient of Variation 14.4 % (11.5-14.5); White Blood Count 7.55 K/uL (4.8-10.8)
[2021-12-29 21:58] LABS: Partial Thromboplastin Time 27.1 Seconds (21.0-31.0)
--- NOTE | 2021-12-29 22:04 | CT Scan Report ---
CT abd pelvis wo con CLINICAL HISTORY: heamturia, rt flank pain TECHNIQUE: Helical axial images of the abdomen and pelvis were obtained. Automated dose lowering tech niques and/or adjustment according to patient size were utilized for this exam. This exam was perfor med without intravenous contrast. COMPARISON: Comparison is made to CT abdomen pelvis 09/30/2017 FINDINGS: Lower chest: No acute abnormality Liver: Hepatic steatosis is noted. Gallbladder and biliary tree: Cholelithiasis is seen without evidence of cholecystitis. No intra- or extrahepatic biliary ductal dilation. Pancreas: Unremarkable, no focal lesions. Spleen: Splenomegaly is noted, the spleen measures 12.9 cm. Adrenals: Unremarkable. Kidneys and ureters: Exophytic cyst is seen in the right kidney inferior pole. No evidence of hydrone phrosis. No obstructing nephrolithiasis is seen. Bladder: Soft tissue density is seen in mild diffuse bladder wall thickening is seen. The posterior i nferior aspect of the bladder are seen. Reproductive organs: Prostatomegaly is seen. Bowel: A hiatal hernia is seen. Lymph nodes Retroperitoneal: Unremarkable. Mesenteric: Unremarkable. Pelvic: Unremarkable. Peritoneum: Normal. Vessels: Atherosclerotic calcifications are seen. Abdominal wall: A fat-containing umbilical hernia is seen. Bones: There is a total left hip arthroplasty. Mild degenerative changes are seen. IMPRESSION: There is soft tissue density in the posterior inferior portion of the bladder. In part, this may repr esent extension of the hypertrophic prostate, there is likely a component of either bladder wall mass or dependent clots. Correlation with cystography is recommended. No evidence of metastatic disease. ACT 112: Negative or not required by law. Electronically signed by: Jeff Lopes M.D. 12/29/2021 10:02 PM
[2021-12-29 22:05] LABS: Appearance Urine Turbid (Clear); Color Urine Red; Specific Gravity Urine 1.017 (1.000-1.030)
[2021-12-29 22:07] LABS: Epithelial Cell Urine 0-5 /lpf (0-5); RBC Urine >30 /hpf (0-4)
[2021-12-29 22:08] LABS: Bacteria Urine Negative (Negative)
[2021-12-29 22:10] LABS: Albumin Globulin Ratio 1.4 (0.9-2); Albumin Level 4.3 gm/dl (3.4-5.0); BUN Creatinine Ratio 22.2 (10-20); Bilirubin,Total 1.1 mg/dl (0.2-1.0); Calcium 9.5 mg/dl (8.5-10.1); Creatinine Clr Calc Pharmacy 91.3 ml/min; Est GFR (African American) 97.9 ml/min; Est GFR (Non-African American) 84.4 ml/min; Potassium 3.6 mmol/L (3.5-5.1); Total Protein 7.3 gm/dl (6.0-8.3)
[2021-12-29] MEDS ORDERED: ACETAMINOPHEN 325 MG TAB PO STA (22:32)
--- NOTE | 2021-12-30 00:10 | History & Physical Report ---
Date of Service December 30, 2021 Assessment & Plan (1) Bladder mass: Plan: Bladder mass/gross hematuria- NPO LR at 80 mils per hour x1 L Follow urine culture and sensitivity Ceftriaxone 2 g IV daily Consult urology (2) Gross hematuria: Plan: See above (3) watermaster (current) use of antithrombotics/antiplatelets: Plan: Hold clopidogrel (4) GERD (gastroesophageal reflux disease): Plan: GERD/hiatal hernia- Change omeprazole to pantoprazole (5) Hiatal hernia: Plan: See above (6) Hyperlipidemia: Plan: Continue simvastatin (7) BPH (benign prostatic hyperplasia): (8) Anxiety: Plan: Continue citalopram and melatonin History of Present Illness Chief Complaint: The patient presents to the emergency department with report of urinating blood since early this morning Primary Care Provider: NO PCP The patient is a 71-year-old male with a past medical history including GERD, had a hernia, rectal bleeding, right lower extremity radiculopathy, laparoscopic fundoplication, anxiety with depression, hyperlipidemia. He noted over the past 2 years episodes where he might have pink urine for a day or so then resolve. This morning he reports persistent grossly bloody urination and pelvic pressure. He also notes right flank pain mimicking his history of right lower extremity radiculopathy Allergies Allergy/AdvReac Type Severity Reaction Status Date / Time No Known Allergies Allergy nkda Verified 12/29/21 21:53 Home Medications Medication Instructions Recorded Confirmed Type clopidogrel 75 mg tablet 75 mg PO QAM 09/15/19 12/29/21 History omeprazole 20 mg capsule,delayed 20 mg PO QAM 09/15/19 12/29/21 History release simvastatin 20 mg tablet 20 mg PO QPM 09/15/19 12/29/21 History cholecalciferol (vitamin D3) 25 0 mcg PO DIRECTED 12/29/21 12/29/21 History mcg (1,000 unit) capsule (Vitamin D3) citalopram 40 mg tablet 40 mg PO DAILY 12/29/21 12/29/21 History melatonin 5 mg tablet 5 mg PO HS 12/29/21 12/29/21 History Past Med/Surg History Medical History (Updated 12/30/21 @ 03:19 by Ryan Duffy MD) Anxiety BPH (benign prostatic hyperplasia) GERD (gastroesophageal reflux disease) Hyperlipidemia Mini stroke 2016- on plavix Obesity Post traumatic stress disorder Sleep apnea BIPAP Surgical History H/O removal of cyst History of colonoscopy History of esophagogastroduodenoscopy (EGD) History of total left hip replacement History of total right knee replacement (TKR) History of transurethral resection of prostate Hx of appendectomy Hx of inguinal hernia repair right Family History Sister Cancer bone marrow Mother Heart disease Other No family history of adverse response to anesthesia Social History Smoking Status: Never smoker Second Hand Exposure: No; Hx Alcohol Use: Yes Alcohol type: beer Hx Substance Use: No Preferred Language: Sinhala Communication Ability: Effective Needle Loom Weaver Required: No Beliefs That Will Affect Care: None marital status: Current Living Situation: Spouse current occupational status: retired Feels Safe at Home: Yes Safety Concerns: Feels Safe At This Time Assistive Devices: BiPap, Denture - Upper, Denture - Lower and Hearing Aid - Bilateral Review of Systems Review of Systems: The patient denies chest pain, palpitations, shortness of breath, dyspnea on exertion, cough, lower extremity swelling, sore throat, fevers, chills, sweats, nausea, vomiting, diarrhea , constipation, blood in stool, lightheadedness, dizziness, headache, memory loss, loss of consciousness, rash, imbalance, focal or generalized weakness, numbness or tingling in arms or legs, generalized arthralgias or myalgias, or night sweats. The review of systems is otherwise negative other than for that already noted above, and at least 10 systems have been reviewed. Physical Exam Physical Exam: The patient is awake, alert and oriented 3, well developed and well nourished, normocephalic and atraumatic, lying in bed and in no acute distress. HEENT--PERRL, EOMI, mucous membranes and oropharynx normal Neck--supple. No JVD. No bruits. Thyroid normal, trachea midline, no adenopathy. Heart--normal S1 and S2. No murmurs, rubs or gallops. Lungs--clear bilaterally, no respiratory distress, no accessory muscle use. Abdomen--normal bowel sounds and soft. Nontender. Nondistended. Obese Extremities--no cyanosis or clubbing. No edema. Dermatologic--normal skin turgor, normal color, no abnormal lymph nodes, no rash. Neurologic--cranial nerves II through XII grossly intact. Rheumatologic--normal range of motion. Psychiatric--normal affect. Results & Data Results & Data ([facility]) Vital Signs (Past 12 Hours) Vital Signs Temp Pulse Pulse Resp BP BP Pulse Ox 12/29/21 22:57 68 18 138/81 92 12/29/21 21:42 93 12/29/21 20:55 36.6 C 88 16 136/83 94 Laboratory Results Laboratory Results WBC 7.55 K/uL (4.8-10.8) 12/29/21 21:35 RBC 4.30 M/uL (4.7-6.1) L 12/29/21 21:35 Hgb 13.2 g/dL (14.0-18.0) L 12/29/21 21:35 Hct 39.9 % (42-52) L 12/29/21 21:35 MCV 92.8 fL (80-100) 12/29/21 21:35 MCH 30.7 pg (25-34) 12/29/21 21:35 MCHC 33.1 g/dL (32-36) 12/29/21 21:35 RDW Std Deviation 49.0 fL (36.4-46.3) H 12/29/21 21:35 RDW Coeff of Leonora 14.4 % (11.5-14.5) 12/29/21 21:35 Plt Count 157 K/uL (130-400) 12/29/21 21:35 MPV 12.1 fL (7.4-10.4) H 12/29/21 21:35 Immature Gran % (Auto) 0.4 % 12/29/21 21:35 Neut % (Auto) 39.6 % 12/29/21 21:35 Lymph % (Auto) 20.3 % 12/29/21 21:35 [place] % (Auto) 39.3 % 12/29/21 21:35 Eos % (Auto) 0.1 % 12/29/21 21:35 Baso % (Auto) 0.3 % 12/29/21 21:35 Neut # (Auto) 2.99 K/uL (1.4-6.5) 12/29/21 21:35 Lymph # (Auto) 1.53 K/uL (1.2-3.4) 12/29/21 21:35 [place] # (Auto) 2.97 K/uL (0.11-0.59) H 12/29/21 21:35 Eos # (Auto) 0.01 K/uL (0-0.5) 12/29/21 21:35 Baso # (Auto) 0.02 K/uL (0-0.2) 12/29/21 21:35 Immature Gran # (Auto) 0.03 K/uL (0.00-0.02) H 12/29/21 21:35 PT 11.0 Seconds (9.0-12.0) 12/29/21 21:35 INR 1.0 (0.9-1.1) 12/29/21 21:35 APTT 27.1 Seconds (21.0-31.0) 12/29/21 21:35 PTT Ratio 1.0 12/29/21 21:35 Sodium 139 mmol/L (136-145) 12/29/21 21:35 Potassium 3.6 mmol/L (3.5-5.1) 12/29/21 21:35 Chloride 108 mmol/L (98-107) H 12/29/21 21:35 Carbon Dioxide 24 mmol/L (21-32) 12/29/21 21:35 Anion Gap 7 (3-11) 12/29/21 21:35 BUN 20 mg/dl (6-23) 12/29/21 21:35 Creatinine 0.90 mg/dl (0.6-1.4) 12/29/21 21:35 Est Cr Clr Drug Dosing 91.3 ml/min 12/29/21 21:35 Est GFR ( Amer) 97.9 ml/min 12/29/21 21:35 Est GFR (Non-Af Amer) 84.4 ml/min 12/29/21 21:35 BUN/Creatinine Ratio 22.2 (10-20) H 12/29/21 21:35 Glucose 145 mg/dl (70-99(Fasting)) H 12/29/21 21:35 Calcium 9.5 mg/dl (8.5-10.1) 12/29/21 21:35 Total Bilirubin 1.1 mg/dl (0.2-1.0) H 12/29/21 21:35 AST 16 U/L (13-39) 12/29/21 21:35 ALT 15 U/L (7-52) 12/29/21 21:35 Alkaline Phosphatase 48 U/L (34-104) 12/29/21 21:35 Total Protein 7.3 gm/dl (6.0-8.3) 12/29/21 21:35 Albumin 4.3 gm/dl (3.4-5.0) 12/29/21 21:35 Globulin 3.0 gm/dl (2.5-4.0) 12/29/21 21:35 Albumin/Globulin Ratio 1.4 (0.9-2) 12/29/21 21:35 Lipase 21 U/L (11-82) 12/29/21 21:35 Urine Color Red 12/29/21 21:35 Urine Appearance Turbid (Clear) A 12/29/21 21:35 Urine pH (4.5-7.5) 12/29/21 21:35 Ur Specific [place] 1.017 (1.000-1.030) 12/29/21 21:35 Urine Protein (Negative) 12/29/21 21:35 Urine Glucose (UA) (Negative) 12/29/21 21:35 Urine Ketones (Negative) 12/29/21 21:35 Urine Blood (Negative) 12/29/21 21:35 Urine Nitrite (Negative) 12/29/21 21:35 Urine Bilirubin (Negative) 12/29/21 21:35 Urine Urobilinogen (Negative) 12/29/21 21:35 Ur Leukocyte Esterase (Negative) 12/29/21 21:35 Urine RBC >30 /hpf (0-4) H 12/29/21 21:35 Urine WBC 10-30 /hpf (0-5) H 12/29/21 21:35 Ur Epithelial Cells 0-5 /lpf (0-5) 12/29/21 21:35 Urine Bacteria Negative (Negative) 12/29/21 21:35 SARS-CoV-2, RNA, NAAT NEGATIVE (NEGATIVE) 12/29/21 21:35 Impressions Abdomen/Pelvis CT 12/29/21 21:21 CT abd pelvis wo con CLINICAL HISTORY: heamturia, rt flank pain TECHNIQUE: Helical axial images of the abdomen and pelvis were obtained. Automated dose lowering techniques and/or adjustment according to patient size were utilized for this exam. This exam was performed without intravenous cont rast. COMPARISON: Comparison is made to CT abdomen pelvis 09/30/2017 FINDINGS: Lower chest: No acute abnormality Liver: Hepatic steatosis is noted. Gallbladder and biliary tree: Cholelithiasis is seen without evidence of cholecystitis. No intra- or extrahepatic biliary ductal dilation. Pancreas: Unremarkable, no focal lesions. Spleen: Splenomegaly is noted, the spleen measures 12.9 cm. Adrenals: Unremarkable. Kidneys and ureters: Exophytic cyst is seen in the right kidney inferior pole. No evidence of hydronephrosis. No obstructing nephrolithiasis is seen. Bladder: Soft tissue density is seen in mild diffuse bladder wall thickening is seen. The posterior inferior aspect of the bladder are seen. Reproductive organs: Prostatomegaly is seen. Bowel: A hiatal hernia is seen. Lymph nodes Retroperitoneal: Unremarkable. Mesenteric: Unremarkable. Pelvic: Unremarkable. Peritoneum: Normal. Vessels: Atherosclerotic calcifications are seen. Abdominal wall: A fat-containing umbilical hernia is seen. Bones: There is a total left hip arthroplasty. Mild degenerative changes are seen. IMPRESSION: There is soft tissue density in the posterior inferior portion of the bladder. In part, this may represent extension of the hypertrophic prostate, there is likely a component of either bladder wall mass or dependent clots. Correlation with cystography is recommended. No evidence of metastatic disease. ACT 112: Negative or not required by law. Electronically signed by: Jeff Lopes M.D. 12/29/2021 10:02 PM Code Status & VTE Plan Code Status Full code VTE Prophylaxis Plan VTE Prophylaxis will be ordered: Yes PG Care Time/CCT Total # of Minutes Spent Total Time Spent with Patient: Total time spent is greater than 50% in coordination of care (as documented) at patient's floor/unit and/or counseling patient: Coding Level of Care Code INT OBSERVATION CARE 70M LVL 3 Diagnoses Bladder mass N32.89 watermaster (current) use of antithrombotics/antiplatelets Z79.02 Gross hematuria R31.0 GERD (gastroesophageal reflux disease) K21.9 Hiatal hernia K44.9 Hyperlipidemia E78.5 BPH (benign prostatic hyperplasia) N40.0 Anxiety F41.9
[2021-12-30] MEDS ORDERED: BENZONATATE 100 MG CAPSULE PO PRN (01:17)
[2021-12-30] MEDS ORDERED: ACETAMINOPHEN 325 MG TAB PO PRN (01:17)
[2021-12-30] MEDS ORDERED: ONDANSETRON INJ 2 MG/ML 2 ML VIAL IV PRN ×2 (01:17→11:33)
[2021-12-30] MEDS: LACTATED RINGER'S 1,000 ML IV SCH ×2 (01:49→13:49)
[2021-12-30] MEDS ORDERED: cefTRIAXone SODIUM 2,000 MG in DEXTROSE 5% 50 ML IV SCH (02:00)
--- NOTE | 2021-12-30 06:36 | XRay Report ---
XR chest 1V portable CLINICAL HISTORY: cough. COMPARISON STUDY: 12/11/2019 TECHNIQUE: 1 view of the chest FINDINGS: Single frontal view of the chest demonstrates the cardiomediastinal silhouette to be within normal li mits. The lungs are clear of alveolar opacities. There is no evidence for pleural effusion. There is no evidence for vascular congestion. There is no acute osseous pathology. IMPRESSION: 1. No acute cardiopulmonary disease. ACT 112: Negative or not required by law. Electronically signed by: Freedom Davis M.D. 12/30/2021 6:34 AM
[2021-12-30 07:28] LABS: Basophils # (auto) 0.01 K/uL (0-0.2); Basophils % (auto) 0.2 %; Eosinophils # (auto) 0.01 K/uL (0-0.5); Eosinophils % (auto) 0.2 %; Hematocrit (blood only) 38.9 % (42-52); Hemoglobin 12.9 g/dL (14.0-18.0); Immature Granulocytes # (auto) 0.03 K/uL (0.00-0.02); Immature Granulocytes % (auto) 0.5 %; Lymphocytes # (auto) 1.55 K/uL (1.2-3.4); Lymphocytes % (auto) 26.1 %; Mean Corpuscular Hemoglobin 30.9 pg (25-34); Mean Corpuscular Hgb Conc 33.2 g/dL (32-36); Mean Corpuscular Volume 93.3 fL (80-100); Mean Platelet Volume 11.9 fL (7.4-10.4); Monocytes # (auto) 2.16 K/uL (0.11-0.59); Monocytes % (auto) 36.4 %; Neutrophils # (auto) 2.18 K/uL (1.4-6.5); Neutrophils % (auto) 36.6 %; Platelet Count 145 K/uL (130-400); RDW Coefficient of Variation 14.4 % (11.5-14.5); RDW Standard Deviation 49.1 fL (36.4-46.3); Red Blood Count 4.17 M/uL (4.7-6.1); White Blood Count 5.94 K/uL (4.8-10.8)
[2021-12-30 07:53] LABS: BUN Creatinine Ratio 24.4 (10-20); Calcium 8.5 mg/dl (8.5-10.1); Creatinine Clr Calc Pharmacy 100.2 ml/min; Est GFR (African American) 101.7 ml/min; Est GFR (Non-African American) 87.7 ml/min; Phosphorus 3.2 mg/dl (2.5-4.9); Potassium 3.7 mmol/L (3.5-5.1)
--- NOTE | 2021-12-30 09:12 | Urology Consultation ---
Date of Consultation December 30, 2021 Assessment & Plan (1) BPH (benign prostatic hyperplasia): (2) Gross hematuria: We discussed his gross hematuria in detail. We discussed that there are several possible causes for hematuria including enlarged prostate, urinary tract infection, nephrolithiasis, bladder or kidney cancer. We discussed the typical work-up for gross hematuria including cytology, imaging of the upper tract and cystoscopy. We discussed that this can be performed as an outpatient and since he is emptying his bladder well, we do not expressly have to do an intervention today. He feels that since he is here in the hospital, he would rather have something done at this time. We discussed options including catheter placement and hand irrigation to remove all the clots and assess whether there is ongoing bleeding. We also discussed performing cystoscopy under anesthesia with the opportunity for clot evacuation and fulguration of any bleeding areas or possible resection of any tumor if appreciated. We discussed the risks and benefits of this approach. We discussed the risk of bleeding, infection, injury to the bladder or urinary tract, need for additional procedure, need for catheter placement. He expressed understanding would like to proceed with cystoscopy, clot evacuation, possible fulguration under anesthesia. We will plan to get this done today. History of Present Illness Reason for Consultation: Hematuria with clots Attending Physician: Suzy Solo MD History of Present Illness This is a 71-year-old male who presented to the emergency department on 12/29/2021 with 1 day of gross hematuria and passing blood clots in the urine. He denies any previous episodes of hematuria. He has still been able to empty his bladder, but has had to strain to force couple clots out. He notes that he was doing some heavy lifting the day prior to the hematuria starting, but there were no other inciting factors that he recognizes. He denies any dysuria or prior urinary tract infections. He denies any fevers or chills. He denies any smoking history or exposure to chemical dyes to put him at risk for bladder cancer. He has no personal history of bladder or kidney cancer. He has history of TURP for BPH, performed by Dr. Greenfield. In the emergency department, he was noted to be hemodynamically stable. Lab work demonstrated a hemoglobin of 13.2. BMP was notable for normal creatinine (0.90). He did not have any leukocytosis. Urinalysis was performed but was limited in interpretation due to the amount of blood. No bacteria were seen. A CT scan was performed which I independently reviewed. This demonstrated 2 kidneys. In the right kidney there is a cystic-appearing, 2.1 cm structure. There is no hydronephrosis bilaterally. He has a moderately enlarged prostate. On the posterior wall of the bladder there is some hyperdense material, likely representing old clot, but cannot exclude bladder mass. Allergies Allergy/AdvReac Type Severity Reaction Status Date / Time No Known Allergies Allergy nkda Verified 12/29/21 21:53 Home Medications Medication Instructions Recorded Confirmed Type clopidogrel 75 mg tablet 75 mg PO QAM 09/15/19 12/29/21 History omeprazole 20 mg capsule,delayed 20 mg PO QAM 09/15/19 12/29/21 History release simvastatin 20 mg tablet 20 mg PO QPM 09/15/19 12/29/21 History cholecalciferol (vitamin D3) 25 0 mcg PO DIRECTED 12/29/21 12/29/21 History mcg (1,000 unit) capsule (Vitamin D3) citalopram 40 mg tablet 40 mg PO DAILY 12/29/21 12/29/21 History melatonin 5 mg tablet 5 mg PO HS 12/29/21 12/29/21 History Patient History Medical History Anxiety BPH (benign prostatic hyperplasia) GERD (gastroesophageal reflux disease) Hyperlipidemia Mini stroke 2016- on plavix Obesity Post traumatic stress disorder Sleep apnea BIPAP Surgical History H/O removal of cyst History of colonoscopy History of esophagogastroduodenoscopy (EGD) History of total left hip replacement History of total right knee replacement (TKR) History of transurethral resection of prostate Hx of appendectomy Hx of inguinal hernia repair right Family History Sister Cancer bone marrow Mother Heart disease Other No family history of adverse response to anesthesia Social History Smoking Status: Never smoker Second Hand Exposure: No; Hx Alcohol Use: Yes Alcohol type: beer Hx Substance Use: No Preferred Language: [place]se Communication Ability: Effective [facility] Care Center Administrator Required: No Beliefs That Will Affect Care: None marital status: Current Living Situation: Spouse current occupational status: retired Feels Safe at Home: Yes Safety Concerns: Feels Safe At This Time Assistive Devices: BiPap, Denture - Upper, Denture - Lower and Hearing Aid - Bilateral Review of Systems Review of Systems: 14 point review of systems negative except for otherwise indicated. Physical Exam Constitutional: well developed and well nourished; no acute distress Eyes: + anicteric sclerae; pupils not irregular Respiratory: normal respiratory effort; no respiratory distress, does not use accessory muscles and no cough Cardiovascular: well perfused Gastrointestinal (Abdomen): Inspection/Auscultation: abdomen normal to inspection; abdomen not distended Musculoskeletal: Extremities: extremities normal to inspection Skin: normal turgor; no rashes and no lesions Neurologic: moves all extremities and awake Psychiatric: Orientation: alert and oriented x 3 Genitourinary: Voiding well, urine is a dark cranberry color, but no clots appreciated on most recent void. Results & Data ([facility]) Vital Signs (Past 12 Hours) Vital Signs Temp Pulse Pulse Resp BP Pulse Ox 12/30/21 08:17 36.7 C 60 18 110/67 95 12/30/21 01:02 36.3 C L 68 16 134/91 95 12/30/21 00:34 63 16 117/79 94 12/29/21 22:57 68 18 138/81 92 12/29/21 21:42 93 PG Care Time/CCT Total # of Minutes Spent Total Time Spent with Patient: Total time spent is greater than 50% in coordination of care (as documented) at patient's floor/unit and/or counseling patient: Coding Level of Care Code 93132 Initial Inpt Care Lvl 3 Diagnoses BPH (benign prostatic hyperplasia) N40.0 Gross hematuria R31.0
--- NOTE | 2021-12-30 11:03 | Anesthesiology Consultation ---
Date of Service December 30, 2021 Assessment & Plan Chart Review Chart Review: Acceptable Risk for Surgery and Patient NOT seen in Pre Admission Testing Consults Requested none ASA ASA4 Proposed Anesthesia Anesthesia Type: General History Surgery Operation Date: 12/30/21 11:30 Proposed Procedures p Cystoscopy - Alexey Bond MD Height/Weight Height: 5 ft 11 in Weight: 107.8 kg Allergies Allergy/AdvReac Type Severity Reaction Status Date / Time No Known Allergies Allergy nkda Verified 12/29/21 21:53 Medications Home Medications Medication Instructions Recorded Confirmed Last Taken clopidogrel 75 mg tablet 75 mg PO QAM 09/15/19 12/29/21 12/29/21 omeprazole 20 mg capsule,delayed 20 mg PO QAM 09/15/19 12/29/21 12/29/21 release simvastatin 20 mg tablet 20 mg PO QPM 09/15/19 12/29/21 12/29/21 cholecalciferol (vitamin D3) 25 0 mcg PO DIRECTED 12/29/21 12/29/21 12/29/21 mcg (1,000 unit) capsule (Vitamin D3) citalopram 40 mg tablet 40 mg PO DAILY 12/29/21 12/29/21 12/29/21 melatonin 5 mg tablet 5 mg PO HS 12/29/21 12/29/21 12/28/21 Active Medications Generic Name Dose Route Start Last Admin Trade Name Vicq PRN Reason Stop Dose Admin Ceftriaxone Sodium 2,000 mg/ 70 mls @ 100 mls/hr 12/30/21 02:00 12/30/21 02:30 Dextrose IV 01/09/22 01:59 Infused Q24H ROBIN Infusion Protocol Lactated Ringer's 1,000 mls @ 80 mls/hr 12/30/21 01:17 12/30/21 01:49 Lr IV 01/29/22 01:16 80 mls/hr .[id number] ROBIN Administration Past Medical History Medical History Anxiety BPH (benign prostatic hyperplasia) GERD (gastroesophageal reflux disease) Hyperlipidemia Mini stroke 2016- on plavix Obesity Post traumatic stress disorder Sleep apnea BIPAP Exercise / Class Metabolic Activity II 4-5 Yardwork/Stairs/Walk up hill Past Family History Family History Sister Cancer bone marrow Mother Heart disease Other No family history of adverse response to anesthesia Past Surgical History Surgical History H/O removal of cyst History of colonoscopy History of esophagogastroduodenoscopy (EGD) History of total left hip replacement History of total right knee replacement (TKR) History of transurethral resection of prostate Hx of appendectomy Hx of inguinal hernia repair right Past Anesthesia History No Hx of Anesthesia Complications and No Family Hx of Anesthesia Complications History of PONV No Hx of PONV and No Hx of Motion Sickness Social History Smoking Status: Never smoker Hx Alcohol Use: Yes Alcohol type: beer alcohol intake frequency: holidays/special occasions only Hx Substance Use: No substance use type: does not use Physical Exam Vital Signs Last Vital Signs Temp 36.7 C 12/30/21 08:17 Pulse 60 12/30/21 08:17 Resp 18 12/30/21 08:17 BP 110/67 12/30/21 08:17 Pulse Ox 95 12/30/21 08:17 Testing Laboratory Results 12/30/21 06:52 12/30/21 06:52 PT 11.0 Seconds (9.0-12.0) 12/29/21 21:35 INR 1.0 (0.9-1.1) 12/29/21 21:35 APTT 27.1 Seconds (21.0-31.0) 12/29/21 21:35 Urine Color Red 12/29/21 21:35 Urine Appearance Turbid (Clear) A 12/29/21 21:35 Urine pH (4.5-7.5) 12/29/21 21:35 Ur Specific [place] 1.017 (1.000-1.030) 12/29/21 21:35 Urine Protein (Negative) 12/29/21 21:35 Urine Glucose (UA) (Negative) 12/29/21 21:35 Urine Ketones (Negative) 12/29/21 21:35 Urine Nitrite (Negative) 12/29/21 21:35 Ur Leukocyte Esterase (Negative) 12/29/21 21:35 Urine RBC >30 /hpf (0-4) H 12/29/21 21:35 Urine WBC 10-30 /hpf (0-5) H 12/29/21 21:35 Ur Epithelial Cells 0-5 /lpf (0-5) 12/29/21 21:35 Electrocardiogram Date: 12/10/19 Findings: + NSR @ (at 84 w/ frequent PAC's) Chest X-Ray Date: 12/11/19 Findings: + NAD
[2021-12-30] MEDS ORDERED: ePHEDrine sulfate 50 MG/ML AMP IV PRN (11:33)
[2021-12-30] MEDS ORDERED: FLUMAZENIL 0.1 MG/1 ML 10 ML VIAL IV PRN (11:33)
[2021-12-30] MEDS ORDERED: PROMETHAZINE HCL 12.5 MG in SODIUM CHLORIDE 0.9% 50 ML IV PRN (11:33)
[2021-12-30] MEDS ORDERED: ATROPINE SULFATE 0.1 MG/ML 10ML SYR IV PRN (11:33)
[2021-12-30] MEDS ORDERED: LABETALOL HCL IV 5 MG/ML 20ML IV PRN (11:33)
[2021-12-30] MEDS ORDERED: fentaNYL citrate 100 MCG/2 ML VIAL IV PRN (11:33)
[2021-12-30] MEDS ORDERED: NALOXONE HCL 0.4 MG/1 ML VIAL/CARP IV PRN (11:33)
--- NOTE | 2021-12-30 12:30 | Operative Report ---
PG Post Operative Report Pre & Post Diagnosis Operation Date: 12/30/21 11:30 Pre-Op Diagnosis: Gross Hematuria, Post-Op Diagnosis: Gross Hematuria, I identified the patient and participated in the time-out.: Yes Procedure Operation Date: 12/30/21 11:30 Actual Procedures p Cystoscopy, Clot Evacuation, Fulguration(Not Applicable) - Alexey Bond MD Surgeon Alexey Bond MD Global Commodity Manager None Estimated Blood Loss 10 Findings See Below No masses appreciated within the bladder. Erythema and injection of the mucosa in the prostate, likely the source of the bleeding with a couple vessels which were cauterized. Specimens None Drains 24 [place] three-way Anne catheter, third port is clamped, not attached to CBI. Anesthesia Type General Complications none Disposition Disposition: Recovery Room Indications This is a 71-year-old male with prior history of TURP who developed gross hematuria on 12/29/2021, prompting him to come to the emergency department. Due to ongoing hematuria and passing some clots, he is being brought to the OR today for cystoscopy, clot evacuation and fulguration or tumor resection if indicated. Description of Procedure The patient was identified in the holding area and informed consent was confirmed. He was taken to the operating room where general anesthesia was initiated. He was placed in the dorsal lithotomy position with all pressure points appropriately padded. He was prepped and draped in the usual sterile fashion and a preoperative timeout was performed. A well-lubricated resectoscope was inserted per urethra and panendoscopy was performed. The urethral meatus was tight and required gentle dilation from 20- 28 [place] prior to advancing the cystoscope. The distal pendulous urethra was otherwise normal with no strictures or mucosal abnormalities. There was significant prostatic regrowth with some likely intravesical component. Within the lumen of the bladder clot was appreciated. The Madeline syringe was used to evacuate all clot from the bladder. The scope was then reinserted and used to surveyed the bladder. There were no tumors within the bladder. There were no stones. The mucosa of the trigone and overlying the prostate was injected and appeared very irritated, consistent with cystitis. There were a couple friable patches of this tissue which appeared to be actively bleeding. The button electrode was attached to the scope and used to cauterize any areas of bleeding. There was an intravesical protrusion of the prostate which I used the electrode to ablate so that I could fully survey the remaining mucosa. Once these areas were cauterized, there was no ongoing bleeding. A final survey of the bladder was performed which identified no other bleeding areas and no tumors. The bladder was notably enlarged and elongated, making it somewhat difficult to fully survey the dome. The ureteral orifices were unharmed, and removed from the area of fulguration. A 24 Fr 3-way anne catheter was placed. The balloon was inflated with 10 mL of normal saline and the catheter was attached to gravity drainage. The third port was plugged, as the urine was clear. The patient was then awakened from anesthesia and was brought to the PACU in stable condition. I attest to the content of the Intraoperative Record and any orders documented therein. Any exceptions are noted below.
--- NOTE | 2021-12-30 13:08 | Anesthesiology Progress Note ---
Date of Service December 30, 2021 Anesthesia Post Procedure Vital Signs Vital Signs: Temp Pulse Pulse Pulse Resp BP BP 12/30/21 12:55 63 20 125/74 12/30/21 12:45 63 22 141/87 H 12/30/21 12:35 66 21 130/92 12/30/21 12:27 37.1 C 65 22 120/78 12/30/21 08:17 36.7 C 60 18 110/67 12/30/21 01:02 36.3 C L 68 16 134/91 12/30/21 00:34 63 16 117/79 12/29/21 22:57 68 18 138/81 12/29/21 21:42 12/29/21 20:55 36.6 C 88 16 136/83 Pulse Ox 12/30/21 12:55 99 12/30/21 12:45 97 12/30/21 12:35 99 12/30/21 12:27 95 12/30/21 08:17 95 12/30/21 01:02 95 12/30/21 00:34 94 12/29/21 22:57 92 12/29/21 21:42 93 12/29/21 20:55 94 Pain Intensity Head: Pain Intensity: 10 Transfer of Care Handoff Completed per policy Notes Mental Status: alert / awake / arousable Patient Amnestic to Procedure: Yes Nausea / Vomiting: adequately controlled Pain: adequately controlled Airway Patency, RR, SpO2: stable & adequate BP & HR: stable & adequate Hydration State: stable & adequate Anesthetic Complications: no major complications apparent
--- NOTE | 2021-12-30 18:36 | Hospitalist Progress Note ---
Date of Service December 30, 2021 Assessment & Plan (1) Gross hematuria: Plan: Status post cystoscopy, no bladder tumors noted Clot evacuation performed by Dr. 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 Maintain Rueda catheter with management every shift. Repeat labs in the morning. Await urine culture and sensitivity. Anticipate likely can D/C home tomorrow. Above plan discussed with Dr. Solo. Admission and Anticipated Discharge Date Admission Date: December 30, 2021 Subjective Patient seen on daily rounds this morning. He was hospitalized in the early hours this morning due to gross hematuria. This morning, he had no complaints, denied lower abdominal pain, dysuria, chest pain or shortness of breath. He was seen this morning by urology and was taken to the OR around 1230, cystoscopy performed with clot evacuation, no bladder mass seen. CBI initiated in PACU with plans to monitor overnight. Review of Systems Review of Systems: The patient denies chest pain, palpitations, shortness of breath, dyspnea on exertion, cough, lower extremity swelling, sore throat, fevers, chills, sweats, nausea, vomiting, diarrhea , constipation, blood in stool, lightheadedness, dizziness, headache, memory loss, loss of consciousness, rash, imbalance, focal or generalized weakness, numbness or tingling in arms or legs, generalized arthralgias or myalgias, or night sweats. The review of systems is otherwise negative other than for that already noted above, and at least 10 systems have been reviewed. Physical Exam Physical Exam: GENERAL: 71 yo well-developed, well-nourished WM. NAD. LUNGS: Clear to auscultation bilaterally. No accessory muscle use. No W/R/R. CARDIOVASCULAR: Regular rate and rhythm. No M/G/R. No JVD. ABDOMEN: Soft, non-tender and non-distended. BS normal x 4 quad. EXTREMITIES: No edema. Non-tender. Peripheral pulses +2/4. NEUROLOGIC: A&O x3. PSYCHIATRIC: Cooperative. Appropriate mood and affect. SKIN: Warm, dry, intact. No rashes or lesions. Results & Data Results & Data ([facility] [place]) Vital Signs (Past 12 Hours) Vital Signs Temp Pulse Pulse Pulse Resp BP Pulse Ox 12/30/21 16:32 36.4 C L 68 16 129/81 93 12/30/21 14:21 36.7 C 58 L 18 118/76 96 12/30/21 14:05 36.4 C L 60 18 127/79 93 12/30/21 13:45 37.2 C 60 18 127/79 95 12/30/21 13:30 61 17 121/81 97 12/30/21 13:15 56 L 16 130/73 96 12/30/21 13:05 36.2 C L 59 L 17 139/78 96 12/30/21 12:55 63 20 125/74 99 12/30/21 12:45 63 22 141/87 H 97 12/30/21 12:35 66 21 130/92 99 12/30/21 12:27 37.1 C 65 22 120/78 95 12/30/21 08:17 36.7 C 60 18 110/67 95 Laboratory Results 12/30/21 06:52 12/30/21 06:52 PG Care Time/CCT Total # of Minutes Spent Total Time Spent with Patient: Total time spent is greater than 50% in coordination of care (as documented) at patient's floor/unit and/or counseling patient: Coding Level of Care Code None Diagnoses Gross hematuria R31.0 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
[2021-12-30] MEDS ORDERED: COUGH DROP (SUGAR FREE) LOZ 24 LOZ/1 BOX BUCCAL ONE (23:43)
[2021-12-31] MEDS ORDERED: MELATONIN 3 MG TAB PO PRN (00:30)
[2021-12-31] MEDS ORDERED: CIPROFLOXACIN 500 MG TAB PO SCH (06:00)
[2021-12-31 07:26] LABS: Basophils # (auto) 0.02 K/uL (0-0.2); Basophils % (auto) 0.3 %; Eosinophils # (auto) 0.01 K/uL (0-0.5); Eosinophils % (auto) 0.2 %; Hematocrit (blood only) 37.4 % (42-52); Hemoglobin 12.6 g/dL (14.0-18.0); Immature Granulocytes # (auto) 0.01 K/uL (0.00-0.02); Immature Granulocytes % (auto) 0.2 %; Lymphocytes # (auto) 1.62 K/uL (1.2-3.4); Mean Corpuscular Hgb Conc 33.7 g/dL (32-36); Mean Corpuscular Volume 92.1 fL (80-100); Mean Platelet Volume 11.7 fL (7.4-10.4); Monocytes # (auto) 2.06 K/uL (0.11-0.59); Monocytes % (auto) 31.8 %; Neutrophils # (auto) 2.75 K/uL (1.4-6.5); Neutrophils % (auto) 42.5 %; Platelet Count 162 K/uL (130-400); RDW Coefficient of Variation 14.1 % (11.5-14.5); RDW Standard Deviation 47.9 fL (36.4-46.3); Red Blood Count 4.06 M/uL (4.7-6.1); White Blood Count 6.47 K/uL (4.8-10.8)
[2021-12-31 07:46] LABS: BUN Creatinine Ratio 15.7 (10-20); Calcium 8.5 mg/dl (8.5-10.1); Creatinine Clr Calc Pharmacy 92.3 ml/min; Est GFR (African American) 98.3 ml/min; Est GFR (Non-African American) 84.8 ml/min; Phosphorus 3.4 mg/dl (2.5-4.9); Potassium 3.8 mmol/L (3.5-5.1)
--- NOTE | 2021-12-31 08:46 | Urology Progress Note ---
Date of Service December 31, 2021 Assessment & Plan (1) BPH (benign prostatic hyperplasia): Plan: He has significant prostate regrowth after his prior TURP. I think he would be a good candidate for another outlet procedure such as holep. It would also be reasonable to start on finasteride which can help shrink the prostate over time and may help prevent future episodes of bleeding. (2) Gross hematuria: Plan: Cystoscopy did not demonstrate any intraluminal bladder mass. He had a large prostate with some friable overlying tissue, likely the cause of bleeding. Still little peach color to the urine today, but I would not worry this would cause clots. Not a clear urinary tract infection, based on negative cultures so far. He describes bearing down to have a bowel movement, which may have been the underlying cause of his hematuria. I recommend that he take a stool softener such as Colace or MiraLAX to help prevent the need to strain. Plan: As long as urine remains clear to peach/pink, he should be okay for discharge home today. I would recommend he keep the catheter in place, and would recommend a course of empiric antibiotics (i.e. 5 days of Bactrim). We will coordinate Rueda catheter removal as an outpatient and discuss further steps for his prostate at that point. Admission and Anticipated Discharge Date Admission Date: December 30, 2021 Subjective Feeling well this morning No issues with catheter overnight Did not require any hand irrigation Eager for discharge Tolerating a diet with no nausea or vomiting. Review of Systems Review of Systems: No fevers or chills Gastrointestinal: No nausea or vomiting Physical Exam Physical Exam: Well-appearing, NAD Respiratory: Breathing comfortably on room air Gastrointestinal (Abdomen): Abdomen soft, nontender Genitourinary: Rueda catheter in place, draining peach colored urine with CBI clamped Results & Data ([facility]) Vital Signs (Past 12 Hours) Vital Signs Temp Pulse Pulse Resp BP Pulse Ox 12/31/21 07:14 36.4 C L 58 L 16 134/83 93 12/31/21 02:19 65 17 96 12/31/21 02:14 37.4 C 69 16 125/78 95 12/30/21 22:56 37.7 C H 64 18 145/79 H 94 12/30/21 22:37 87 33 H 97 PG Care Time/CCT Total # of Minutes Spent Total Time Spent with Patient: Total time spent is greater than 50% in coordination of care (as documented) at patient's floor/unit and/or counseling patient: Coding Level of Care Code 65667 Subseq Hosp Care Lvl 2 Diagnoses BPH (benign prostatic hyperplasia) N40.0 Gross hematuria R31.0
--- NOTE | 2021-12-31 14:14 | Discharge Summary ---
Date of Service December 31, 2021 Admission HPI Per Admitting Provider The patient is a 71-year-old male with a past medical history including GERD, had a hernia, rectal bleeding, right lower extremity radiculopathy, laparoscopic fundoplication, anxiety with depression, hyperlipidemia. He noted over the past 2 years episodes where he might have pink urine for a day or so then resolve. T his morning he reports persistent grossly bloody urination and pelvic pressure. He also notes right flank pain mimicking his history of right lower extremity radiculopathy Principal Diagnosis Gross hematuria BPH Discharge Exam GENERAL: 71 yo well-developed, well-nourished WM. NAD. LUNGS: Clear to auscultation bilaterally. No accessory muscle use. No W/R/R. CARDIOVASCULAR: Regular rate and rhythm. No M/G/R. No JVD. ABDOMEN: Soft, non-tender and non-distended. BS normal x 4 quad. : anne in place--one clot noted in the proximal tubing, otherwise urine is pink EXTREMITIES: No edema. Non-tender. Peripheral pulses +2/4. NEUROLOGIC: A&O x3. PSYCHIATRIC: Cooperative. Appropriate mood and affect. SKIN: Warm, dry, intact. No rashes or lesions. Discharge Data Allergies Allergy/AdvReac Type Severity Reaction Status Date / Time No Known Allergies Allergy nkda Verified 12/29/21 21:53 Consultations 12/29/21 23:23 ED Decision to Admit Stat Procedures Performed Operation Date: 12/30/21 11:30 Actual Procedures p Cystoscopy, Clot Evacuation, Fulguration(Not Applicable) - Alexey Bond MD Ordered Studies Abdomen/Pelvis CT 12/29/21 21:21 CT abd pelvis wo con CLINICAL HISTORY: heamturia, rt flank pain TECHNIQUE: Helical axial images of the abdomen and pelvis were obtained. Automated dose lowering techniques and/or adjustment according to patient size were utilized for this exam. This exam was performed without intravenous contrast. COMPARISON: Comparison is made to CT abdomen pelvis 09/30/2017 FINDINGS: Lower chest: No acute abnormality Liver: Hepatic steatosis is noted. Gallbladder and biliary tree: Cholelithiasis is seen without evidence of cholecystitis. No intra- or extrahepatic biliary ductal dilation. Pancreas: Unremarkable, no focal lesions. Spleen: Splenomegaly is noted, the spleen measures 12.9 cm. Adrenals: Unremarkable. Kidneys and ureters: Exophytic cyst is seen in the right kidney inferior pole. No evidence of hydronephrosis. No obstructing nephrolithiasis is seen. Bladder: Soft tissue density is seen in mild diffuse bladder wall thickening is seen. The posterior inferior aspect of the bladder are seen. Reproductive organs: Prostatomegaly is seen. Bowel: A hiatal hernia is seen. Lymph nodes Retroperitoneal: Unremarkable. Mesenteric: Unremarkable. Pelvic: Unremarkable. Peritoneum: Normal. Vessels: Atherosclerotic calcifications are seen. Abdominal wall: A fat-containing umbilical hernia is seen. Bones: There is a total left hip arthroplasty. Mild degenerative changes are seen. IMPRESSION: There is soft tissue density in the posterior inferior portion of the bladder. In part, this may represent extension of the hypertrophic prostate, there is likely a component of either bladder wall mass or dependent clots. Correlation with cystography is recommended. No evidence of metastatic disease. ACT 112: Negative or not required by law. Electronically signed by: Jeff Lopes M.D. 12/29/2021 10:02 PM Chest X-Ray 12/29/21 21:21 XR chest 1V portable CLINICAL HISTORY: cough. COMPARISON STUDY: 12/11/2019 TECHNIQUE: 1 view of the chest FINDINGS: Single frontal view of the chest demonstrates the cardiomediastinal silhouette to be within normal limits. The lungs are clear of alveolar opacities. There is no evidence for pleural effusion. There is no evidence for vascular congestion. There is no acute osseous pathology. IMPRESSION: 1. No acute cardiopulmonary disease. ACT 112: Negative or not required by law. Electronically signed by: Freedom Davis M.D. 12/30/2021 6:34 AM Spec: [id number] Collected: 12/29/21 Received: 12/29/[address]: Placido Tripp M.D. Source: Urine,Clean Catch OV Order: Ordered: Urine Culture Procedure Result Verified Site N Urine Culture Final 12/31/21 Three types of organisms present, all low counts probable skin adalberto. No further identifications or sensitivities to follow. 12/31/21 06:27 12/31/21 06:27 Hospital Course (1) Gross hematuria: Status post cystoscopy, no bladder tumors noted Clot evacuation performed by Dr. Bond on 12/30, CBI initiated in PACU Received IVF on admission which were capped on 12/30 Started on empiric Ceftriaxone 2g IV daily Per urology, recommends 1 week total of antibiotics with either Cipro or Bactrim, was transitioned to Cipro 500mg BID today (12/31) Maintain Anne catheter, urology will remove in the office in about a week We will initiate Proscar 5 mg once daily for his BPH management (2) lobsterman (current) use of antithrombotics/antiplatelets: Clopidogrel held on admission Urology okay with resumption tomorrow as long as urine continues to be light pink (3) GERD (gastroesophageal reflux disease): GERD/hiatal hernia Continue omeprazole (4) Hiatal hernia: See above (5) Hyperlipidemia: Continue simvastatin (6) BPH (benign prostatic hyperplasia): As outlined above patient will be started on Proscar (7) Anxiety: Continue citalopram and melatonin At this time, patient is medically and hemodynamically stable for discharge. Will maintain Anne catheter in place until he follows up with urology which will then be removed in the office. Continue empiric antibiotics as outlined above. Will be sent home on Proscar 5 mg daily. Follow-up with urology as directed. Advise follow-up with primary care physician within 7 to 10 days of discharge from the hospital. Above plan of care has been discussed with Dr. Cochran who has also seen and evaluated this patient and is agreement with aforementioned. Total Time Total Time Spent Total Time Spent (In Minutes): >30 minutes Discharge Plan Discharge Items Patient Disposition: Home - Self-Care Reason For Visit: GROSS HEMATURIA, BLADDER LESION Discharge Diagnosis: Blood in urine Activity: Per Instructions section Non-emergency contact: Primary Care Provider Call non-emergency contact if: you have any medication questions and your symptoms worsen Follow-up/Referrals: Alexey Bond MD [Physician] - (f/u in one week for anne catheter removal) PCP,NO [Primary Care Provider] - Diet: Regular Addtl Attending Provider Instructions: You have been hospitalized due to blood in your urine. There was question as to whether there was a lesion in your bladder, however, this was ruled out by urology who performed your cystoscopy. There was irritated tissue near your prostate which is also enlarged. At this time, it is advised that you maintain the catheter for 1 week with plans to have it removed by urology at the office follow up. Please follow up with their office, the number is listed below, as directed. You are also being started on a medication to help manage your enlarged prostate called Proscar. The dose is 5mg and you will take it once every day. You are also being sent home with an antibiotic in the event that the irritation and blood in your urine is directly related to a urinary tract infection. Your urine culture here identified multiple organisms but did not isolate any specific bacteria. Subsequently you will be sent home with a course of Cipro 500 mg twice daily, your next dose will be due this evening prior to bed. Complete the entire course, no pills should be left over. You may resume your Plavix tomorrow, 01/01/2022, as prescribed as long as the urine that is draining in the tubing remains light pink or clear. If you are passing bright red blood in the tubing, you will need to hold the Plavix and contact the urology office in the morning. It is recommended that you follow up with your primary care provider within 7-10 days of discharge from the hospital. Addtl Sprinkler Inspector Provider Instructions: The surgery you had was cystoscopy, clot evacuation and fulguration Please take all medications as prescribed and keep all follow-ups as scheduled. Please call our office at [phone] with any questions, concerns or need to reschedule appointments for any reason. We are happy to assist you. Medications: -Please resume your normal medications as previously prescribed. -Take a stool softener such as colace or Miralax to keep your stool soft. The goal is one soft bowel movement daily. -For pain, it is ok to take tylenol. You can also try pyridium (also known as AZO). This can be gotten [id number]. It turns your urine a bright orange color. Activity: -Avoid straining or bearing down for the next 1-2 weeks. This can cause or increase bleeding. Avoiding straining to have bowel movements. -If you notice blood in your urine, try to remain well-hydrated to keep the urine dilute. -For the next 2 weeks, avoid activities that put pressure on your perineum (area behind the scrotum), such as riding a bike. What to expect after your procedure: -If a catheter was left in place, we will have you come to the office in the next couple days to remove it. -You may notice some blood in your urine. As long as your catheter is draining, this is ok. When to call [facility] at [phone]: Fever of 101F or higher Heavy bleeding Pain that is not controlled with medicine Uncontrolled vomiting Problems urinating or inability to urinate Our office will call to schedule an appointment for catheter removal. Pending Studies at Discharge: No Stand-Alone Forms: My [facility] [employer], Smoking Cessation Medications and DC Order Prescriptions: New ciprofloxacin HCl 500 mg Tablet 500 mg PO BID Qty: 11 RF: 0 finasteride [Proscar] 5 mg tablet 5 mg PO DAILY Qty: 30 RF: 0 Continued clopidogrel 75 mg tablet 75 mg PO QAM RF: 0 simvastatin 20 mg tablet 20 mg PO QPM RF: 0 omeprazole 20 mg capsule,delayed release(DR/EC) 20 mg PO QAM RF: 0 citalopram 40 mg tablet 40 mg PO DAILY RF: 0 cholecalciferol (vitamin D3) [Vitamin D3] 25 mcg (1,000 unit) Capsule 0 mcg PO DIRECTED RF: 0 melatonin 5 mg Tablet 5 mg PO HS RF: 0 Discharge Orders: Discharge Order (Routine); Ordered 12/31/21 Ordered By: Abena Wills Admission Data Admit Date/Time: 12/30/21 00:09 Attending Provider: Tavo Cochran Admit Provider: Ryan Duffy Primary Care Provider: PCP,NO Other Providers: Ryan Duffy Coding Level of Care Code D/C DAY MANAGEMENT >30 MINS Diagnoses Gross hematuria R31.0 lobsterman (current) use of antithrombotics/antiplatelets Z79.02 GERD (gastroesophageal reflux disease) K21.9 Hiatal hernia K44.9 Hyperlipidemia E78.5 BPH (benign prostatic hyperplasia) N40.0 Anxiety F41.9
== END 2021-12-31 15:48 | disposition home or self-care (01) ==
LOC: ED 20:48 → 3N 20:48 → SUATTDRO 12-30 00:09 → 3N 12-30 00:57

== ENCOUNTER 2022-01-08 21:23 | Inpatient (IN) ==
[2022-01-08 22:22] LABS: Color Urine Red
[2022-01-08 22:23] LABS: Appearance Urine Cloudy (Clear); Specific Gravity Urine > 1.030 (1.000-1.030)
[2022-01-08 22:26] LABS: RBC Urine >30 /hpf (0-4); WBC Urine >30 /hpf (0-5)
[2022-01-08 22:27] LABS: Bacteria Urine Negative (Negative)
[2022-01-08 23:03] LABS: Basophils # (auto) 0.02 K/uL (0-0.2); Basophils % (auto) 0.4 %; Hematocrit (blood only) 35.9 % (42-52); Hemoglobin 12.2 g/dL (14.0-18.0); Immature Granulocytes # (auto) 0.09 K/uL (0.00-0.02); Immature Granulocytes % (auto) 1.7 %; Lymphocytes # (auto) 1.58 K/uL (1.2-3.4); Mean Corpuscular Hemoglobin 31.1 pg (25-34); Mean Corpuscular Volume 91.6 fL (80-100); Monocytes # (auto) 1.51 K/uL (0.11-0.59); Monocytes % (auto) 27.7 %; Neutrophils # (auto) 2.25 K/uL (1.4-6.5); Neutrophils % (auto) 41.2 %; Platelet Count 235 K/uL (130-400); RDW Coefficient of Variation 14.2 % (11.5-14.5); RDW Standard Deviation 47.2 fL (36.4-46.3); Red Blood Count 3.92 M/uL (4.7-6.1); White Blood Count 5.45 K/uL (4.8-10.8)
[2022-01-08 23:26] LABS: Albumin Globulin Ratio 1.3 (0.9-2); Albumin Level 4.1 gm/dl (3.4-5.0); BUN Creatinine Ratio 18.6 (10-20); Bilirubin,Total 0.8 mg/dl (0.2-1.0); Calcium 9.6 mg/dl (8.5-10.1); Creatinine Clr Calc Pharmacy 67.1 ml/min; Est GFR (African American) 70.5 ml/min; Est GFR (Non-African American) 60.9 ml/min; Globulin 3.2 gm/dl (2.5-4.0); Potassium 3.9 mmol/L (3.5-5.1); Total Protein 7.3 gm/dl (6.0-8.3)
--- NOTE | 2022-01-08 23:51 | Emergency Department Note ---
History of Present Illness General Chief complaint: Urinary Symptoms Stated complaint: URINATING BLOOD, EXTREME PENIS PAIN Time Seen by Provider: 01/08/22 22:31 Source: patient, family ( who is at the bedside), RN notes reviewed and old records reviewed Mode of arrival: ambulatory Limitations: no limitations History of Present Illness Maximum Pain Intensity: 10 This patient is a 71-year-old male who comes in with hematuria as well as difficulty urinating. He was seen admitted for gross hematuria about a week and a half ago. Dr. Bond saw him they did a cystoscopy and they found no bladder lesions but thought that he was likely bleeding from the prostate he had a catheter that was kept in the took the catheter out this past he went home cleared up over the weekend on Saturday he started passing blood again he started passing clots today and he could not urinate he was okay yesterday. Prior to me seeing him the nurses placed the catheter in and had actually sucked out large clots the patient feels 100% better he says and has grossly bloody urine in the bag. He said no fever no back pain he was on Plavix due to a history of TIA but this was stopped but restarted yesterday the also started on finasteride. He finished Cipro for antibiotic coverage as well. Home Medications Medication Instructions Recorded Confirmed Type clopidogrel 75 mg tablet 75 mg PO QAM 09/15/19 01/09/22 History omeprazole 20 mg capsule,delayed 20 mg PO QAM 09/15/19 01/09/22 History release simvastatin 20 mg tablet 20 mg PO QPM 09/15/19 01/09/22 History citalopram 40 mg tablet 40 mg PO DAILY 12/29/21 01/09/22 History melatonin 5 mg tablet 5 mg PO HS 12/29/21 01/09/22 History finasteride 5 mg tablet (Proscar) 5 mg PO DAILY #30 tab 12/31/21 01/09/22 Rx calcium carb 333 mg-vit D3 133 1 tab PO DAILY 01/09/22 01/09/22 History unit-mag ox 133 mg-zinc oxide 5 mg tab (Oren Mag Zinc Plus D3) cholecalciferol (vitamin D3) 25 50 mcg PO TID 01/09/22 01/09/22 History mcg (1,000 unit) tablet Allergies Allergy/AdvReac Type Severity Reaction Status Date / Time No Known Allergies Allergy nkda Verified 01/09/22 01:37 Past Med/Surg History Medical History Anxiety BPH (benign prostatic hyperplasia) GERD (gastroesophageal reflux disease) Hyperlipidemia Mini stroke 2016- on plavix Obesity Post traumatic stress disorder Sleep apnea BIPAP Surgical History H/O removal of cyst History of colonoscopy History of esophagogastroduodenoscopy (EGD) History of total left hip replacement History of total right knee replacement (TKR) History of transurethral resection of prostate Hx of appendectomy Hx of inguinal hernia repair right Family History Sister Cancer bone marrow Mother Heart disease Other No family history of adverse response to anesthesia Social History Smoking Status: Never smoker Second Hand Exposure: No; Hx Alcohol Use: Yes Alcohol type: beer Hx Substance Use: No Preferred Language: Yi Communication Ability: Effective Chemical Engraver Required: No Beliefs That Will Affect Care: None marital status: Current Living Situation: Spouse current occupational status: retired Feels Safe at Home: Yes Assistive Devices: None Review of Systems A total of 10 systems reviewed and were otherwise negative Physical Exam Vital Signs Vital Signs - 24 hr 01/08/22 21:30 01/09/22 01:53 Temperature 36.5 C Temperature Source Oral Pulse Rate 100 H Pulse Rate [Finger] 89 Respiratory Rate 22 22 Respiratory Effort / Characteristics Non-Labored Non-Labored Respiratory Depth Normal Normal Respiratory Pattern Regular Regular Blood Pressure 174/109 H Blood Pressure [Right Arm] 121/81 Blood Pressure Mean 130 Blood Pressure Mean [Right Arm] 94 Blood Pressure Position Sitting Blood Pressure Position [Right Arm] Lying Pulse Oximetry 97 97 Oxygen Delivery Method Room Air Room Air Sepsis Recent Fever Within 48 Hours No Sepsis New/Unexplained Change in Mental Status N/A Sepsis Action Taken by Nursing No Action Required General: Well developed well nourished male who appears in no acute distress, breathing comfortably on room air. Normal speech HEENT: Normal cephalic atraumatic. Pupils are equal round and reactive to light . Extraocular movements are intact. Oropharynx is pink with moist mucous membranes. No swelling of the mouth lips or tongue. Neck: Supple with a midline trachea. No meningeal signs or stiffness, no JVD or bruits. No Stridor. Chest: Clear to auscultation bilaterally. No wheezes or rhonchi. No increased work of breathing. Heart: Regular rate and rhythm without murmurs or gallops. Abdomen: Soft nontender, nondistended without rebound guarding or rigidity. He has a Rueda with a bag that has a significant amount of bloody urine with clots in it. Extremities: No cyanosis clubbing or edema. No calf tenderness or assymetry Spine/Back. Non tender to palpation. No CVA tenderness Skin: Good turgor without rashes. Neurologic exam: Cranial nerves two through 12 are intact. Motor and sensation are intact and symmetrical throughout. Medical Decision Making Differential Diagnosis Hematuria, infection, electrolyte or metabolic abnormality, anemia, BPH, bladder obstruction Medical Records Attestation: I reviewed the patient's medical records. Home Medications Current Medication List: was personally reviewed by me Laboratory Data Attestation: I reviewed the patient's lab results. Result diagrams: 01/08/22 22:50 01/08/22 22:50 Lab Results 01/08/22 01/08/22 01/08/22 Range/Units 21:35 22:50 22:50 WBC 5.45 (4.8-10.8) K/uL RBC 3.92 L (4.7-6.1) M/uL Hgb 12.2 L (14.0-18.0) g/dL Hct 35.9 L (42-52) % MCV 91.6 (80-100) fL MCH 31.1 (25-34) pg MCHC 34.0 (32-36) g/dL RDW Std Deviation 47.2 H (36.4-46.3) fL RDW Coeff of Leonora 14.2 (11.5-14.5) % Plt Count 235 (130-400) K/uL MPV 12.0 H (7.4-10.4) fL Immature Gran % (Auto) 1.7 % Neut % (Auto) 41.2 % Lymph % (Auto) 29.0 % [place] % (Auto) 27.7 % Eos % (Auto) 0.0 % Baso % (Auto) 0.4 % Neut # (Auto) 2.25 (1.4-6.5) K/uL Lymph # (Auto) 1.58 (1.2-3.4) K/uL [place] # (Auto) 1.51 H (0.11-0.59) K/uL Eos # (Auto) 0.00 (0-0.5) K/uL Baso # (Auto) 0.02 (0-0.2) K/uL Immature Gran # (Auto) 0.09 H (0.00-0.02) K/uL Sodium 138 (136-145) mmol/L Potassium 3.9 (3.5-5.1) mmol/L Chloride 105 (98-107) mmol/L Carbon Dioxide 24 (21-32) mmol/L Anion Gap 9 (3-11) BUN 22 (6-23) mg/dl Creatinine 1.18 (0.6-1.4) mg/dl Est Cr Clr Drug Dosing 67.1 ml/min Est GFR ( Amer) 70.5 ml/min Est GFR (Non-Af Amer) 60.9 ml/min BUN/Creatinine Ratio 18.6 (10-20) Glucose 117 H (70-99(Fasting)) mg/dl Calcium 9.6 (8.5-10.1) mg/dl Total Bilirubin 0.8 (0.2-1.0) mg/dl AST 19 (13-39) U/L ALT 21 (7-52) U/L Alkaline Phosphatase 50 (34-104) U/L Total Protein 7.3 (6.0-8.3) gm/dl Albumin 4.1 (3.4-5.0) gm/dl Globulin 3.2 (2.5-4.0) gm/dl Albumin/Globulin Ratio 1.3 (0.9-2) Urine Color Red Urine Appearance Cloudy A (Clear) Urine pH (4.5-7.5) Ur Specific Hunker > 1.030 H (1.000-1.030) Urine Protein (Negative) Urine Glucose (UA) (Negative) Urine Ketones (Negative) Urine Blood (Negative) Urine Nitrite (Negative) Urine Bilirubin (Negative) Urine Urobilinogen (Negative) Ur Leukocyte Esterase (Negative) Urine RBC >30 H (0-4) /hpf Urine WBC >30 H (0-5) /hpf Ur Epithelial Cells 5-10 H (0-5) /lpf Urine Bacteria Negative (Negative) SARS-CoV-2, RNA, NAAT (NEGATIVE) 01/09/22 Range/Units 01:16 WBC (4.8-10.8) K/uL RBC (4.7-6.1) M/uL Hgb (14.0-18.0) g/dL Hct (42-52) % MCV (80-100) fL MCH (25-34) pg MCHC (32-36) g/dL RDW Std Deviation (36.4-46.3) fL RDW Coeff of Leonora (11.5-14.5) % Plt Count (130-400) K/uL MPV (7.4-10.4) fL Immature Gran % (Auto) % Neut % (Auto) % Lymph % (Auto) % [place] % (Auto) % Eos % (Auto) % Baso % (Auto) % Neut # (Auto) (1.4-6.5) K/uL Lymph # (Auto) (1.2-3.4) K/uL [place] # (Auto) (0.11-0.59) K/uL Eos # (Auto) (0-0.5) K/uL Baso # (Auto) (0-0.2) K/uL Immature Gran # (Auto) (0.00-0.02) K/uL Sodium (136-145) mmol/L Potassium (3.5-5.1) mmol/L Chloride (98-107) mmol/L Carbon Dioxide (21-32) mmol/L Anion Gap (3-11) BUN (6-23) mg/dl Creatinine (0.6-1.4) mg/dl Est Cr Clr Drug Dosing ml/min Est GFR ( Amer) ml/min Est GFR (Non-Af Amer) ml/min BUN/Creatinine Ratio (10-20) Glucose (70-99(Fasting)) mg/dl Calcium (8.5-10.1) mg/dl Total Bilirubin (0.2-1.0) mg/dl AST (13-39) U/L ALT (7-52) U/L Alkaline Phosphatase (34-104) U/L Total Protein (6.0-8.3) gm/dl Albumin (3.4-5.0) gm/dl Globulin (2.5-4.0) gm/dl Albumin/Globulin Ratio (0.9-2) Urine Color Urine Appearance (Clear) Urine pH (4.5-7.5) Ur Specific [place] (1.000-1.030) Urine Protein (Negative) Urine Glucose (UA) (Negative) Urine Ketones (Negative) Urine Blood (Negative) Urine Nitrite (Negative) Urine Bilirubin (Negative) Urine Urobilinogen (Negative) Ur Leukocyte Esterase (Negative) Urine RBC (0-4) /hpf Urine WBC (0-5) /hpf Ur Epithelial Cells (0-5) /lpf Urine Bacteria (Negative) SARS-CoV-2, RNA, NAAT NEGATIVE (NEGATIVE) MDM Narrative This patient comes in as described above. He had bladder obstruction due to a bloody clots. A Rueda catheter was placed and he was draining he reclotted while he was in the ER we irrigated again. His hemoglobin is stable at 12. His urinalysis has significant out of blood and also some white cells in it. As no fever or white count to suggest infection. Looking back through his reports he has a large friable prostate tissue that was thought to be bleeding. I did call urology and I talked to Dr. Infante, he recommended not replacing the Rueda catheter unless the patient cannot urinate at all. He did not recommend a three-way catheter. The patient was passing small amounts of urine at the time. He did recommend that he get admitted to medicine. Medicine did see him and at this point the patient is not passing urine again so they did order a Rueda catheter. He will be observed in the hospital and further consulted by urology Impression & Plan Hematuria, Urinary (tract) obstruction, Abdominal pain, Lab test negative for COVID-19 virus Discharge Plan Visit Data Chief Complaint: Urinary Symptoms Stated Complaint: URINATING BLOOD, EXTREME PENIS PAIN ED Provider: Placido Tripp Discharge Problem: Hematuria, Urinary (tract) obstruction, Abdominal pain, Lab test negative for COVID-19 virus Forms Stand Alone Forms: My [facility] [employer] Prescriptions Prescriptions: No Action clopidogrel 75 mg tablet 75 mg PO QAM RF: 0 simvastatin 20 mg tablet 20 mg PO QPM RF: 0 omeprazole 20 mg capsule,delayed release(DR/EC) 20 mg PO QAM RF: 0 citalopram 40 mg tablet 40 mg PO DAILY RF: 0 melatonin 5 mg Tablet 5 mg PO HS RF: 0 finasteride [Proscar] 5 mg tablet 5 mg PO DAILY Qty: 30 RF: 0 cholecalciferol (vitamin D3) 25 mcg (1,000 unit) tablet 50 mcg PO TID RF: 0 Orne Mag Zinc Plus D3 333 mg-133 unit -133 mg-5 mg Tablet 1 tab PO DAILY RF: 0 Referrals Referrals: Vasmhi Red, JUAN PABLO [Primary Care Provider] -
--- NOTE | 2022-01-09 01:31 | History & Physical Report ---
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: (6) GERD (gastroesophageal reflux disease): Plan: Hematuria - thought to be secondary to BPH per last admission Urology notes - NPO - LR at 80 cc/h x1 L - Urine cultures pending -- hold antibiotics at this time as infection seems unlikely - Rueda catheter placed due to inability to pass urine and significant discomfort - Irrigate every hour - Consult urology BPH - Continue finasteride - Defer consideration of Flomax to Urology History of TIA: - Hold clopidogrel GERD: Change omeprazole to pantoprazole per formulary Hyperlipidemia: - Continue simvastatin Anxiety: - Continue citalopram - Single dose of oral Ativan given due to acute anxiety related to discomfort and continued urinary issues DVT prophylaxis: SCDs, chemoprophylaxis contraindicated due to hematuria FEN GI: N.p.o., LR at 80 cc/h x 1 L Dispo: MedSurg Code: Full History of Present Illness Primary Care Provider: Vamshi Red PA-C Efra Garland is a 71-year-old male with past medical history of anxiety/depression BPH, GERD, hyperlipidemia, history of TIA on clopidogrel who arrives today due to recurrent gross hematuria. Patient was admitted at our hospital 10 days ago due to similar complaint. He was seen by urology, who did a cystoscopy and found no bladder masses hematuria thought to be secondary to BPH. He was discharged with a catheter in place, which was removed in the outpatient setting on 01/04. After this, he did pass nonbloody urine for a couple of days but then on Saturday started urinating blood again. Today, he noticed he had started to pass blood clots again and was unable to urinate. Of note, patient's clopidogrel had been on hold and was restarted yesterday He notes that he does have some discomfort related to his inability to urinate and has needed to get up every couple of minutes to attempt with only blood clots coming out but very minimal amounts of urine. He denies abdominal pain, lower back pain, fever, chills, nausea, While in the ED, nurses placed Ruead, which initially helped pass large clots and relieved his symptoms. However, shortly thereafter the Rueda became clogged Rueda was then irrigated but ended up being pulled out at that time. Labs with WBC of 5.45, Hgb stable at 12.2 from prior of 12.6, normal electrolytes. UA with >30 RBCs, >30 WBCs, 5-10 epithelial cells. Leuk esterase, nitrites, protein, pH uninterpretable due to urine color interference. Allergies Allergy/AdvReac Type Severity Reaction Status Date / Time No Known Allergies Allergy nkda Verified 01/09/22 01:37 Home Medications Medication Instructions Recorded Confirmed Type clopidogrel 75 mg tablet 75 mg PO QAM 09/15/19 01/09/22 History omeprazole 20 mg capsule,delayed 20 mg PO QAM 09/15/19 01/09/22 History release simvastatin 20 mg tablet 20 mg PO QPM 09/15/19 01/09/22 History citalopram 40 mg tablet 40 mg PO DAILY 12/29/21 01/09/22 History melatonin 5 mg tablet 5 mg PO HS 12/29/21 01/09/22 History finasteride 5 mg tablet (Proscar) 5 mg PO DAILY #30 tab 12/31/21 01/09/22 Rx calcium carb 333 mg-vit D3 133 1 tab PO DAILY 01/09/22 01/09/22 History unit-mag ox 133 mg-zinc oxide 5 mg tab (Oren Mag Zinc Plus D3) cholecalciferol (vitamin D3) 25 50 mcg PO TID 01/09/22 01/09/22 History mcg (1,000 unit) tablet Past Med/Surg History Medical History Anxiety BPH (benign prostatic hyperplasia) GERD (gastroesophageal reflux disease) Hyperlipidemia Mini stroke 2016- on plavix Obesity Post traumatic stress disorder Sleep apnea BIPAP Surgical History H/O removal of cyst History of colonoscopy History of esophagogastroduodenoscopy (EGD) History of total left hip replacement History of total right knee replacement (TKR) History of transurethral resection of prostate Hx of appendectomy Hx of inguinal hernia repair right Family History Sister Cancer bone marrow Mother Heart disease Other No family history of adverse response to anesthesia Social History Smoking Status: Never smoker Second Hand Exposure: No; Hx Alcohol Use: Yes Alcohol type: beer Hx Substance Use: No Preferred Language: [place]i Communication Ability: Effective 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 In acute discomfort. HEENT: PERRL, EOMI. Moist mucous membranes. NECK: No JVD. No lymphadenopathy. CHEST/LUNGS: CTAB A/P. No crackles, wheezes, rales, rhonchi. HEART: RRR. No m/g/r. No carotid bruits. ABDOMEN: NT/ND, soft. BS+ x4. No CVA tenderness. EXTREMITIES: No cyanosis, no clubbing, no edema SKIN: Warm and dry. No rashes or lesions. PSYCHIATRIC: Anxious affect, no SI, no pressured speech, no hallucinations NEUROLOGIC: No FND. CN II-XII grossly intact. Results & Data Results & Data ([facility]) Vital Signs (Past 12 Hours) Vital Signs Temp Pulse Resp BP Pulse Ox 01/08/22 21:30 36.5 C 100 H 22 174/109 H 97 Supervising Physician Co-Signing Physician Notes Attending addendum: I have physically seen this patient, have supervised the medical residents activities, and agree with the H&P unless as otherwise noted. Assessment and Plan: Recurrent gross hematuria/BPH with LUTS- Significant urine outflow issues Follow urine culture sensitivity Place Rueda catheter Continue finasteride Unclear why Flomax was discontinued at her last admission Hold clopidogrel Gentle IV fluids Remaining orders and notations as noted Resident Activity Tracking Resident Involvement: Resident Care Provided Care Provided: Adult Hospital Medicine
[2022-01-09] MEDS ORDERED: LORazepam 0.5 MG TAB PO STA (01:48)
[2022-01-09] MEDS ORDERED: LIDOCAINE 2% JELLY 5 ML TUBE ONE ×2 (02:40→20:00)
[2022-01-09] MEDS ORDERED: ONDANSETRON INJ 2 MG/ML 2 ML VIAL IV PRN ×2 (03:23→17:11)
[2022-01-09] MEDS ORDERED: POLYETHYLENE (MIRALAX) 17 GM PACK PO PRN (03:23)
[2022-01-09] MEDS ORDERED: ACETAMINOPHEN 1,000 MG/100 ML VIAL IV PRN (03:23)
[2022-01-09] MEDS ORDERED: LACTATED RINGER'S 1,000 ML IV SCH (03:23)
[2022-01-09] MEDS: CHOLECALCIFEROL 1,000 UNITS 25 MCG TAB PO SCH ×3 (08:33→21:24)
[2022-01-09] MEDS: CITALOPRAM 40 MG TAB PO SCH (08:33)
[2022-01-09] MEDS: PANTOprazole 40 MG TAB PO SCH (08:34)
[2022-01-09] MEDS: CEROVITE ADV FORMULA TAB PO SCH (08:34)
[2022-01-09] MEDS: FINASTERIDE 5 MG TAB PO SCH (08:34)
--- NOTE | 2022-01-09 12:46 | Urology Consultation ---
Date of Consultation January 09, 2022 Assessment & Plan (1) Gross hematuria: 71 yo M with history of BPH s/p prior TURP admitted for recurrent gross hematuria and clot retention. - Plan of care reviewed with Dr. Garcia, urologist non categorical preschool teacher. - Patient afebrile, nontoxic, hemodynamically stable. - Lab work reviewed - creatinine 1.18, WBC 5.45, Hgb 12.2 - continue to trend. - Urine culture preliminary no growth. - Rueda catheter intact, patent and draining archer red urine with manual irriga tion every hour. - Per nursing, moderate amounts of clots with Q1 hour irrigation. - Continue manual irrigation Q1 hour per hospital medicine order or prn clot retention, suprapubic pain. - Plavix currently on hold. - Given hematuria with clot retention, proceed to OR for cystoscopy, clot evacuation and possible transurethral resection of prostate. - Risks and benefits to be reviewed with patient by Dr. Garcia. OR notified. - Will cover with IV Ancef 2 gram preoperatively. - Keep NPO for procedure. - Patient agreeable with the above plan, all questions answered. - Continue supportive care and management per hospital medicine service. - Urology will continue to follow closely. History of Present Illness Reason for Consultation: Hematuria Requesting Physician: Dr. Martinez Attending Physician: Angel Strong DO History of Present Illness 71 yo M with past medical history significant for BPH, hyperlipidemia, sleep apnea, GERD, TIA on Plavix, and anxiety admitted for recurrent gross hematuria and clot retention. Patient presented to [facility] ED on 01/08/22 with recurrent gross hematuria and difficulty voiding. He was recently hospitalized for gross hematuria and clot retention from 12/29 - 12/31/21. He is s/p cystoscopy, clot evacuation and fulguration on 12/30/[address] Bond. Cystoscopy findings revealed a large prostate with some friable overlying tissue, likely the cause of bleeding; significant prostate regrowth from prior TURP; no intraluminal bladder mass noted.He was discharged to home with Rueda catheter on 12/31/21. Catheter was subsequently removed in urology office on 01/04/22. He was doing well until 01/07 when he developed recurrence of gross hematuria with small clots initially. Hematuria with clots worsened prompting him to return to ED. Of note, his Plavix had been on hold and was restarted yesterday. He was afebrile on arrival. Lab work independently reviewed. Creatinine was 1.18, Hemoglobin 12.2, Hematocrit 35.9, WBC 5.45. Urinalysis showed >30 RBCs, >30 WBCs, 5-10 epithelials; negative for bacteria. Urine culture collected. Covid testing was negative. No imaging performed on admission. Per ED notes, a Rueda catheter was placed and clots were manually irrigated. Rueda catheter subsequently reclotted and was removed. He was initially able to void after catheter removal. He was admitted to the hospital medicine service. A 22F Rueda catheter was placed on 01/09/22 due to difficulty voiding. Catheter is being manually irrigated by nursing every hour with moderate clot return. Urology consulted for hematuria. Patient seen and examined at bedside. Alert, awake and resting in bed. RN at bedside, recently completed manual irrigation with large amount of clots returned. Rueda catheter intact, patent and draining archer red urine. He notes bladder pressure that builds prior to irrigation, but then relieved afterward. Currently denies suprapubic, abdominal or flank pain. No nausea or vomiting. No fever or chills. No dizziness, chest pain, or shortness of breath. He is currently NPO since midgnight. Offers no additional complaints at present. Allergies Allergy/AdvReac Type Severity Reaction Status Date / Time No Known Allergies Allergy nkda Verified 01/09/22 01:37 Home Medications Medication Instructions Recorded Confirmed Type clopidogrel 75 mg tablet 75 mg PO QAM 09/15/19 01/09/22 History omeprazole 20 mg capsule,delayed 20 mg PO QAM 09/15/19 01/09/22 History release simvastatin 20 mg tablet 20 mg PO QPM 09/15/19 01/09/22 History citalopram 40 mg tablet 40 mg PO DAILY 12/29/21 01/09/22 History melatonin 5 mg tablet 5 mg PO HS 12/29/21 01/09/22 History finasteride 5 mg tablet (Proscar) 5 mg PO DAILY #30 tab 12/31/21 01/09/22 Rx calcium carb 333 mg-vit D3 133 1 tab PO DAILY 01/09/22 01/09/22 History unit-mag ox 133 mg-zinc oxide 5 mg tab (Oren Mag Zinc Plus D3) cholecalciferol (vitamin D3) 25 50 mcg PO TID 01/09/22 01/09/22 History mcg (1,000 unit) tablet Patient History Medical History Anxiety BPH (benign prostatic hyperplasia) GERD (gastroesophageal reflux disease) Hyperlipidemia Mini stroke 2016- on plavix Obesity Post traumatic stress disorder Sleep apnea BIPAP Surgical History H/O removal of cyst History of colonoscopy History of esophagogastroduodenoscopy (EGD) History of total left hip replacement History of total right knee replacement (TKR) History of transurethral resection of prostate Hx of appendectomy Hx of inguinal hernia repair right Family History Sister Cancer bone marrow Mother Heart disease Other No family history of adverse response to anesthesia Social History Smoking Status: Never smoker Second Hand Exposure: No; Hx Alcohol Use: Yes Alcohol type: beer Hx Substance Use: No Preferred Language: Burundian Communication Ability: Effective Certified Optician Required: No Beliefs That Will Affect Care: None marital status: Current Living Situation: Spouse current occupational status: retired Other Information That Helps Us Care for You: No Feels Safe at Home: Yes Safety Concerns: Feels Safe At This Time Assistive Devices: None Review of Systems Constitutional: as per Subjective / HPI Eyes: no problem reported Ear, Nose, Mouth, Throat: no problem reported Respiratory: no dyspnea Cardiovascular: no chest pain Gastrointestinal: as per Subjective / HPI Genitourinary: + as per Subjective / HPI Musculoskeletal: no problem reported Integumentary: no problem reported Neurologic: no problem reported Psychiatric: no problem reported Endocrine: no problem reported Physical Exam Constitutional: well developed and well nourished; no acute distress and not ill appearing Eyes: no scleral abnormality Neck: normal visual inspection Respiratory: normal respiratory effort and able to speak in complete sentences; no respiratory distress and no labored breathing Cardiovascular: Extremities: no pedal edema Gastrointestinal (Abdomen): Inspection/Auscultation: abdomen normal to inspection; abdomen not distended Percussion/Palpation: abdomen soft; abdomen nontender and no guarding Musculoskeletal: Head/Neck/Chest: normocephalic and head atraumatic Extremities: extremities normal to inspection Skin: no visible rashes Neurologic: moves all extremities and awake Psychiatric: Orientation: alert, oriented x 3 and cooperative Eye Contact: good eye contact Genitourinary: Rueda intact, patent and draining archer red urine Results & Data ([facility]) Vital Signs (Past 12 Hours) Vital Signs Temp Pulse Resp BP Pulse Ox 01/09/22 07:56 36.6 C 65 17 123/75 97 01/09/22 03:15 36.7 C 66 18 150/72 H 98 01/09/22 01:53 89 22 121/81 97 PG Care Time/CCT Total # of Minutes Spent Total Time Spent with Patient: Total time spent is greater than 50% in coordination of care (as documented) at patient's floor/unit and/or counseling patient: Coding Level of Care Code INT OBSERVATION CARE 30M LVL 1 Diagnoses Gross hematuria R31.0
[2022-01-09] MEDS ORDERED: ceFAZolin 2000MG 2,000 MG/15 ML SYR IV SCH (15:58)
--- NOTE | 2022-01-09 16:58 | Hospitalist Progress Note ---
Date of Service January 09, 2022 Assessment & Plan (1) Hematuria: (2) Anxiety: (3) BPH (benign prostatic hyperplasia): (4) Hyperlipidemia: (5) shelter (current) use of antithrombotics/antiplatelets: (6) GERD (gastroesophageal reflux disease): Plan: Hematuria - thought to be secondary to BPH per last admission Urology notes -Patient seen by urology. Patient is having every hour bladder flushes, patient was also taken to the OR to do a cystoscopy with possible TURP. - NPO for now, can be put on regular diet after per Urology - LR at 80 cc/h x1 L - Urine cultures pending -- hold antibiotics at this time as infection seems unlikely - Rueda catheter placed due to inability to pass urine and significant discomfort - Irrigate every hour - Consult urology BPH - Continue finasteride - Defer consideration of Flomax to Urology History of TIA: - Hold clopidogrel GERD: Change omeprazole to pantoprazole per formulary Hyperlipidemia: - Continue simvastatin Anxiety: - Continue citalopram - Single dose of oral Ativan given due to acute anxiety related to discomfort and continued urinary issues DVT prophylaxis: SCDs, chemoprophylaxis contraindicated due to hematuria FEN GI: N.p.o., LR at 80 cc/h x 1 L Dispo: MedSur Code: Full Admission and Anticipated Discharge Date Admission Date: January 09, 2022 Supervising Physician Co-Signing Physician Notes chart reviewed case d/w dr mc. unable to see pt - in OR. as above. appreciate urology input Subjective Patient seen at bedside this morning. Allegedly patient went home with Rueda catheter after recent discharge and Rueda catheter was appropriately removed. Patient had no hematuria for about 2 days and on the day that he restarted Plavix he was doing yard work on his tractor and noticed later in the day that he began having gross hematuria in the evening. Patient returned to the ED for this reason as he was having less and less urination and felt backed up. Patient had a Rueda catheter placed overnight and has been producing red urine throughout the day. Patient denies any fevers, chills, nausea, vomiting, pain with urination, or chest pain. Review of Systems Review of Systems: All systems reviewed & are unremarkable except as noted in HPI & below Physical Exam Constitutional: WD/WN, vitals as above Eyes: PERRL Neck: trachea midline, no thyromegaly Respiratory: normal respiratory effort, lungs clear to auscultation Cardiovascular: RRR, no murmur, no edema Gastrointestinal (Abdomen): normal bowel sounds, soft, nontender, no hepatosplenomegaly Musculoskeletal: Head/Neck/Chest: normocephalic and head atraumatic Skin: no rashes, warm and dry Neurologic: moves all extremities Psychiatric: A+Ox3, euthymic affect Genitourinary: Rueda catheter in place. Results & Data Results & Data ([facility]) Vital Signs (Past 12 Hours) Vital Signs Temp Pulse Resp BP Pulse Ox 01/09/22 15:38 36.5 C 66 20 132/76 96 01/09/22 07:56 36.6 C 65 17 123/75 97 (1) Hematuria Hematuria type: gross Qualified Code(s): R31.0 - Gross hematuria
[2022-01-09] MEDS ORDERED: ATROPINE SULFATE 0.1 MG/ML 10ML SYR IV PRN (17:11)
[2022-01-09] MEDS ORDERED: ePHEDrine sulfate 50 MG/ML AMP IV PRN (17:11)
[2022-01-09] MEDS ORDERED: fentaNYL citrate 100 MCG/2 ML VIAL IV PRN (17:11)
--- NOTE | 2022-01-09 17:11 | Anesthesiology Consultation ---
Date of Service January 09, 2022 Assessment & Plan (1) Encounter for pre-operative examination: Chart Review Chart Review: entry level finance initiated History Surgery Operation Date: 01/09/22 14:35 Proposed Procedures p Cystoscopy Clot Evacuation, Possible Transurethral Resection Prostate - Mak Garcia MD Height/Weight Height: 5 ft 11 in Weight: 99.9 kg Allergies Allergy/AdvReac Type Severity Reaction Status Date / Time No Known Allergies Allergy nkda Verified 01/09/22 01:37 Medications Home Medications Medication Instructions Recorded Confirmed Last Taken clopidogrel 75 mg tablet 75 mg PO QAM 09/15/19 01/09/22 01/08/22 08:00 omeprazole 20 mg capsule,delayed 20 mg PO QAM 09/15/19 01/09/22 01/08/22 08:00 release simvastatin 20 mg tablet 20 mg PO QPM 09/15/19 01/09/22 01/07/22 citalopram 40 mg tablet 40 mg PO DAILY 12/29/21 01/09/22 01/08/22 08:00 melatonin 5 mg tablet 5 mg PO HS 12/29/21 01/09/22 12/28/21 finasteride 5 mg tablet (Proscar) 5 mg PO DAILY #30 tab 12/31/21 01/09/22 01/08/22 08:00 calcium carb 333 mg-vit D3 133 1 tab PO DAILY 01/09/22 01/09/22 Unknown unit-mag ox 133 mg-zinc oxide 5 mg tab (Oren Mag Zinc Plus D3) cholecalciferol (vitamin D3) 25 50 mcg PO TID 01/09/22 01/09/22 Unknown mcg (1,000 unit) tablet Active Medications Generic Name Dose Route Start Last Admin Trade Name Freq PRN Reason Stop Dose Admin Citalopram Hydrobromide 40 mg 01/09/22 09:00 01/09/22 08:33 Citalopram 40 Mg Tab PO 02/08/22 08:59 40 mg DAILY ROBIN Administration Finasteride 5 mg 01/09/22 09:00 01/09/22 08:34 Finasteride 5 Mg Tab PO 02/08/22 08:59 5 mg DAILY ROBIN Administration Multivitamins/Minerals 1 tab 01/09/22 09:00 01/09/22 08:34 Cerovite Adv Formula Tab PO 02/08/22 08:59 1 tab DAILY ROBIN Administration Pantoprazole Sodium 40 mg 01/09/22 09:00 01/09/22 08:34 Pantoprazole 40 Mg Tab PO 02/08/22 08:59 40 mg DAILY ROBIN Administration Vitamin D 2,000 units 01/09/22 09:00 01/09/22 13:03 Cholecalciferol 1,000 Units 25 Mcg Tab PO 02/08/22 08:59 Not Given TID ROBIN NPO Date Last Intake of Fluids: 01/09/22 Time Last Intake of Fluids: 08:30 Date Last Intake of Solids: 01/08/22 Past Medical History Medical History Anxiety BPH (benign prostatic hyperplasia) GERD (gastroesophageal reflux disease) Hyperlipidemia Mini stroke 2016- on plavix Obesity Post traumatic stress disorder Sleep apnea BIPAP Past Family History Family History Sister Cancer bone marrow Mother Heart disease Other No family history of adverse response to anesthesia Past Surgical History Surgical History H/O removal of cyst History of colonoscopy History of esophagogastroduodenoscopy (EGD) History of total left hip replacement History of total right knee replacement (TKR) History of transurethral resection of prostate Hx of appendectomy Hx of inguinal hernia repair right Social History Smoking Status: Never smoker Hx Alcohol Use: Yes Alcohol type: beer alcohol intake frequency: holidays/special occasions only Hx Substance Use: No substance use type: does not use Physical Exam Vital Signs Last Vital Signs Temp 97.7 F 01/09/22 15:38 Pulse 66 01/09/22 15:38 Resp 20 01/09/22 15:38 BP 132/76 01/09/22 15:38 Pulse Ox 96 01/09/22 15:38 Testing Laboratory Results 01/08/22 22:50 01/08/22 22:50 Urine Color Red 01/08/22 21:35 Urine Appearance Cloudy (Clear) A 01/08/22 21:35 Urine pH (4.5-7.5) 01/08/22 21:35 Ur Specific [place] > 1.030 (1.000-1.030) H 01/08/22 21:35 Urine Protein (Negative) 01/08/22 21:35 Urine Glucose (UA) (Negative) 01/08/22 21:35 Urine Ketones (Negative) 01/08/22 21:35 Urine Nitrite (Negative) 01/08/22 21:35 Ur Leukocyte Esterase (Negative) 01/08/22 21:35 Urine RBC >30 /hpf (0-4) H 01/08/22 21:35 Urine WBC >30 /hpf (0-5) H 01/08/22 21:35 Ur Epithelial Cells 5-10 /lpf (0-5) H 01/08/22 21:35 01/08/22 21:35 Urine Culture - Preliminary Urine,Clean Catch No growth - Less than 1,000 colonies/mL, Final report to follow. Electrocardiogram Date: 12/10/19 Normal sinus rhythm with frequent Premature atrial complexes, rate 86 bpm Borderline ECG When compared with ECG of 15-SEP-2019 17:09, Premature atrial complexes are now Present Confirmed by John Nichols ([id number]) on 12/10/2019 4:12:05 PM Chest X-Ray Date: 12/29/21 IMPRESSION: 1. No acute cardiopulmonary disease.
[2022-01-09] MEDS ORDERED: LIDOCAINE 2% 2 ML VIAL/AMP(20MG/ML) INFIL ONE (17:33)
[2022-01-09] MEDS ORDERED: PROPOFOL IV EMULSION 10 MG/ML 20 ML VIAL IV ONE (17:33)
[2022-01-09] MEDS ORDERED: fentaNYL citrate 100 MCG/2 ML VIAL ONE (17:33)
[2022-01-09] MEDS ORDERED: ONDANSETRON INJ 2 MG/ML 2 ML VIAL ONE (18:14)
--- NOTE | 2022-01-09 19:11 | Operative Report ---
PG Post Operative Report Pre & Post Diagnosis Operation Date: 01/09/22 14:35 Pre-Op Diagnosis: Gross Hematuria Post-Op Diagnosis: Gross Hematuria I identified the patient and participated in the time-out.: Yes Procedure Operation Date: 01/09/22 14:35 Actual Procedures p Cystoscopy Clot Evacuation 1L Blood, Transurethral Resection Prostate(Not Applicable) - Mak Garcia MD Surgeon Vincent Garcia MD Weatherization Coordinator none Estimated Blood Loss 0 Findings Consistent with Post-Op Diagnosis Specimens none Description of Procedure The patient was identified in the preoperative holding area, appropriate informed consents were reviewed and completed and the patient was transferred to the operative suite. Upon arrival, appropriate antibiotics and anesthesia were administered and the patient was placed in dorsal lithotomy position and prepped and draped in sterile fashion. To begin the case I passed a 26 Upper Sorbian resectoscope with 30 degree lens and visual obturator. Inspection revealed a healthy-appearing urethra, prostate was notably enlarged with a significant mount of blood clot within the prostatic urethra. Inspection of the bladder was impossible given the substantial amount of blood within the bladder. I therefore position of the scope into the bladder and utilizing a Madeline syringe I manually irrigated the bladder. In total I filled a graduated cylinder with 1000 cc of old clot and blood. I was unable to inspect the bladder and the bladder itself was healthy without any tumors or bleeding lesions. His prostate however has regrowth and was bleeding from both sides and area adjacent to the bladder neck. There appears to be slightly asymmetrical regrowth with the right lateral lobe being slightly larger than the left lateral lobe. I utilized a button electrode and resected these areas until they were relatively smooth and bleeding was resolved. He certainly has a significant amount of residual tissue that could additionally be resected, however, the appearance of his prostatic urethra was completely considerably improved after this resection. Hemostasis was excellent and I placed a 22 Upper Sorbian three-way Rueda catheter and begin gentle CBI. I subsequently concluded the case and he was reversed of anesthesia and taken to the recovery room in stable condition. There were no complications. I attest to the content of the Intraoperative Record and any orders documented therein. Any exceptions are noted below.
--- NOTE | 2022-01-09 20:09 | Anesthesiology Progress Note ---
Date of Service January 09, 2022 Anesthesia Post Procedure Vital Signs Vital Signs: Temp Pulse Pulse Pulse Resp BP BP 01/09/22 20:00 98.1 F 66 19 141/99 H 01/09/22 19:50 72 18 153/99 H 01/09/22 19:40 66 13 147/88 H 01/09/22 19:30 82 18 160/97 H 01/09/22 19:20 67 14 132/76 01/09/22 19:10 96.8 F L 69 16 135/75 01/09/22 17:22 98.8 F 79 18 01/09/22 15:38 97.7 F 66 20 01/09/22 07:56 97.9 F 65 17 01/09/22 03:15 98.1 F 66 18 01/09/22 01:53 89 22 01/08/22 21:30 97.7 F 100 H 22 174/109 H BP Pulse Ox 01/09/22 20:00 100 01/09/22 19:50 100 01/09/22 19:40 100 01/09/22 19:30 100 01/09/22 19:20 97 01/09/22 19:10 98 01/09/22 17:22 110/70 99 01/09/22 15:38 132/76 96 01/09/22 07:56 123/75 97 01/09/22 03:15 150/72 H 98 01/09/22 01:53 121/81 97 01/08/22 21:30 97 Pain Intensity Penis: Pain Intensity: 7 Transfer of Care Handoff Completed per policy Notes Mental Status: alert / awake / arousable and participated in evaluation Patient Amnestic to Procedure: Yes Nausea / Vomiting: adequately controlled Pain: adequately controlled Airway Patency, RR, SpO2: stable & adequate BP & HR: stable & adequate Hydration State: stable & adequate Anesthetic Complications: no major complications apparent and Pt Satisfied with anesthetic care
[2022-01-09] MEDS ORDERED: LIDOCAINE 2% JELLY 5 ML TUBE EXT SCH (20:15)
[2022-01-09] MEDS: SIMVASTATIN 20 MG TAB PO SCH (21:23)
[2022-01-09] MEDS: MELATONIN 3 MG TAB PO SCH (21:24)
[2022-01-09] MEDS ORDERED: LIDOCAINE 2% JELLY 5 ML TUBE EXT PRN (21:30)
--- NOTE | 2022-01-09 21:44 | Billing Data ---
Date of Service January 09, 2022 Coding Level of Care Code INT OBSERVATION CARE 70M LVL 3
[2022-01-10 06:39] LABS: Basophils # (auto) 0.02 K/uL (0-0.2); Basophils % (auto) 0.3 %; Eosinophils # (auto) 0.01 K/uL (0-0.5); Eosinophils % (auto) 0.1 %; Hematocrit (blood only) 29.7 % (42-52); Hemoglobin 9.9 g/dL (14.0-18.0); Immature Granulocytes # (auto) 0.09 K/uL (0.00-0.02); Immature Granulocytes % (auto) 1.2 %; Lymphocytes # (auto) 2.07 K/uL (1.2-3.4); Lymphocytes % (auto) 26.6 %; Mean Corpuscular Hemoglobin 30.8 pg (25-34); Mean Corpuscular Hgb Conc 33.3 g/dL (32-36); Mean Corpuscular Volume 92.5 fL (80-100); Mean Platelet Volume 11.9 fL (7.4-10.4); Monocytes # (auto) 1.75 K/uL (0.11-0.59); Monocytes % (auto) 22.5 %; Neutrophils # (auto) 3.83 K/uL (1.4-6.5); Neutrophils % (auto) 49.3 %; Platelet Count 237 K/uL (130-400); RDW Coefficient of Variation 14.7 % (11.5-14.5); RDW Standard Deviation 49.2 fL (36.4-46.3); Red Blood Count 3.21 M/uL (4.7-6.1); White Blood Count 7.77 K/uL (4.8-10.8)
[2022-01-10 07:03] LABS: BUN Creatinine Ratio 23.7 (10-20); Calcium 8.8 mg/dl (8.5-10.1); Creatinine Clr Calc Pharmacy 85.2 ml/min; Est GFR (African American) 94.1 ml/min; Est GFR (Non-African American) 81.2 ml/min; Potassium 4.1 mmol/L (3.5-5.1)
[2022-01-10] MEDS: CEROVITE ADV FORMULA TAB PO SCH (08:53)
[2022-01-10] MEDS: CHOLECALCIFEROL 1,000 UNITS 25 MCG TAB PO SCH ×3 (08:53→21:52)
[2022-01-10] MEDS: PANTOprazole 40 MG TAB PO SCH (08:53)
[2022-01-10] MEDS: FINASTERIDE 5 MG TAB PO SCH (08:54)
[2022-01-10] MEDS: CITALOPRAM 40 MG TAB PO SCH (08:54)
--- NOTE | 2022-01-10 11:15 | Urology Progress Note ---
Date of Service January 10, 2022 Assessment & Plan (1) Hematuria: Plan: Gross hematuria status post cystoscopy, clot evacuation and TURP last night CBI run without issue overnight We will clamp it later today Likely voiding trial discharge home tomorrow if he remains clear Admission and Anticipated Discharge Date Admission Date: January 09, 2022 Subjective No major issues overnight CBI running slowly with clear urine output Has ambulated Denies any pain Physical Exam Physical Exam: U OP clear on slow CBI Results & Data ([facility]) Vital Signs (Past 12 Hours) Vital Signs Temp Pulse Resp BP Pulse Ox 01/10/22 07:35 36.9 C 64 20 116/73 95 01/10/22 03:39 37.1 C 55 L 16 124/74 91 01/09/22 23:30 36.9 C 67 16 116/70 97 PG Care Time/CCT Total # of Minutes Spent Total Time Spent with Patient: Total time spent is greater than 50% in coordination of care (as documented) at patient's floor/unit and/or counseling patient: Coding Level of Care Code 62531 Subseq Hosp Care Lvl 2 Diagnoses Hematuria R31.0 Hematuria type: gross (1) Hematuria Hematuria type: gross Qualified Code(s): R31.0 - Gross hematuria
--- NOTE | 2022-01-10 11:32 | Hospitalist Progress Note ---
Date of Service January 10, 2022 Assessment & Plan (1) Hematuria: (2) Anxiety: (3) BPH (benign prostatic hyperplasia): (4) Hyperlipidemia: (5) roasterman (current) use of antithrombotics/antiplatelets: (6) GERD (gastroesophageal reflux disease): Plan: Hematuria - thought to be secondary to BPH per last admission Urology notes -Patient seen by urology. Patient is having every hour bladder flushes, patient was also taken to the OR to do a cystoscopy as well as TURP done on 01/09. -Patient on regular diet - Urine cultures had no growth after 48 hours. - Anne catheter placed due to inability to pass urine and significant discomfort - Irrigate every hour -Appreciate urology recommendations, likely discharge tomorrow. BPH - Continue finasteride - Defer consideration of Flomax to Urology History of TIA: -Continue to hold clopidogrel GERD: Change omeprazole to pantoprazole per formulary Hyperlipidemia: - Continue simvastatin Anxiety: - Continue citalopram - Single dose of oral Ativan given due to acute anxiety related to discomfort and continued urinary issues DVT prophylaxis: SCDs, chemoprophylaxis contraindicated due to hematuria FEN GI: N.p.o., LR at 80 cc/h x 1 L Dispo: MedSurg Code: Full Admission and Anticipated Discharge Date Admission Date: January 09, 2022 Supervising Physician Co-Signing Physician Notes I personally examined the patient and verified all laughlin points of history and exam, discussed case, and agree with decision making with Dr Martinez feeling OK vitals noted nad heent nc at mmm breathing unlabored no accessory muscles urine clear red no clots in anne hematuria - post procedure. irrigation - anticipate d/c soon - then if not clotting and/or able to void - then home ?tomorrow otherwise as above Subjective Patient seen at bedside this morning. Patient is status post TURP and cauterization of bleeding vessels on prostate. Patient has no complaints today and is doing well, eating at the time of interview this morning. No acute events reported overnight. Patient has no other complaints at this time Review of Systems Review of Systems: All systems reviewed & are unremarkable except as noted in HPI & below Physical Exam Constitutional: WD/WN, vitals as above Eyes: PERRL Neck: trachea midline, no thyromegaly Respiratory: normal respiratory effort, lungs clear to auscultation Cardiovascular: RRR, no murmur, no edema Gastrointestinal (Abdomen): normal bowel sounds, soft, nontender, no hepatosplenomegaly Musculoskeletal: Head/Neck/Chest: normocephalic and head atraumatic Skin: no rashes, warm and dry Neurologic: moves all extremities Psychiatric: A+Ox3, euthymic affect Genitourinary: Anne catheter in place that is pulling urine that is blood- tinged without clots in the bag. Results & Data Results & Data ([facility]) Vital Signs (Past 12 Hours) Vital Signs Temp Pulse Resp BP Pulse Ox 01/10/22 11:16 36.7 C 62 20 125/83 97 01/10/22 07:35 36.9 C 64 20 116/73 95 01/10/22 03:39 37.1 C 55 L 16 124/74 91 (1) Hematuria Hematuria type: gross Qualified Code(s): R31.0 - Gross hematuria
[2022-01-10] MEDS ORDERED: CALCIUM CARBONATE 500 MG CHEWABLE TAB PO PRN (14:51)
--- NOTE | 2022-01-10 19:33 | Billing Data ---
Date of Service January 10, 2022 Coding Level of Care Code 44741 Subseq Hosp Care Lvl 1
[2022-01-10] MEDS: MELATONIN 3 MG TAB PO SCH (21:06)
[2022-01-10] MEDS: SIMVASTATIN 20 MG TAB PO SCH (21:52)
[2022-01-11] MEDS: FINASTERIDE 5 MG TAB PO SCH (08:24)
[2022-01-11] MEDS: CEROVITE ADV FORMULA TAB PO SCH (08:24)
[2022-01-11] MEDS: CHOLECALCIFEROL 1,000 UNITS 25 MCG TAB PO SCH ×3 (08:24→20:46)
[2022-01-11] MEDS: CITALOPRAM 40 MG TAB PO SCH (08:24)
[2022-01-11] MEDS: PANTOprazole 40 MG TAB PO SCH (08:24)
[2022-01-11 08:31] LABS: Hematocrit (blood only) 26.3 % (42-52); Hemoglobin 8.7 g/dL (14.0-18.0); Mean Corpuscular Hemoglobin 30.3 pg (25-34); Mean Corpuscular Hgb Conc 33.1 g/dL (32-36); Mean Corpuscular Volume 91.6 fL (80-100); Mean Platelet Volume 11.6 fL (7.4-10.4); Platelet Count 202 K/uL (130-400); RDW Coefficient of Variation 14.5 % (11.5-14.5); RDW Standard Deviation 48.6 fL (36.4-46.3); Red Blood Count 2.87 M/uL (4.7-6.1); White Blood Count 6.33 K/uL (4.8-10.8)
--- NOTE | 2022-01-11 09:14 | Urology Progress Note ---
Date of Service January 11, 2022 Assessment & Plan (1) Hematuria: Plan: d/c catheter this am hold plavix for at least 7days plan for d/c home later today presuming he voids well Admission and Anticipated Discharge Date Admission Date: January 10, 2022 Subjective no issues overnight feels well CBI ran slowly clear urine Physical Exam Physical Exam: urine clear Constitutional: well developed and well nourished Respiratory: no respiratory distress Cardiovascular: Extremities: no pedal edema Gastrointestinal (Abdomen): Inspection/Auscultation: abdomen normal to inspection Results & Data ([facility]) Vital Signs (Past 12 Hours) Vital Signs Temp Pulse Pulse Resp BP Pulse Ox 01/11/22 07:38 36.9 C 69 17 136/82 96 01/10/22 22:49 36.7 C 64 16 123/72 96 PG Care Time/CCT Total # of Minutes Spent Total Time Spent with Patient: Total time spent is greater than 50% in coordination of care (as documented) at patient's floor/unit and/or counseling patient: Coding Level of Care Code 28482 Subseq Hosp Care Lvl 2 Diagnoses Hematuria R31.0 Hematuria type: gross (1) Hematuria Hematuria type: gross Qualified Code(s): R31.0 - Gross hematuria
--- NOTE | 2022-01-11 16:53 | Hospitalist Progress Note ---
Date of Service January 11, 2022 Assessment & Plan (1) Hematuria: (2) Anxiety: (3) BPH (benign prostatic hyperplasia): (4) Hyperlipidemia: (5) senior care (current) use of antithrombotics/antiplatelets: (6) GERD (gastroesophageal reflux disease): Plan: Hematuria - thought to be secondary to BPH per last admission Urology notes -Patient seen by urology. Patient is having every hour bladder flushes, patient was also taken to the OR to do a cystoscopy as well as TURP done on 01/09. -Patient on regular diet - Urine cultures had no growth after 48 hours. -Patient attempted voiding trial today and was found after a couple hours of voiding trial he was retaining 778 cc of urine after which a 16 Mosotho Anne catheter was placed as a 20 Mosotho was unable to be found immediately on the third floor. This was done because patient was in pain and did not feel it appropriate to wait until a 20 Mosotho could be found. -Hold irrigation for now. Continue to monitor for good urinary drainage. -Appreciate urology recommendations BPH - Continue finasteride - Defer consideration of Flomax to Urology History of TIA: -Continue to hold clopidogrel GERD: Change omeprazole to pantoprazole per formulary Hyperlipidemia: - Continue simvastatin Anxiety: - Continue citalopram DVT prophylaxis: SCDs, chemoprophylaxis contraindicated due to hematuria FEN GI: Regular diet Dispo: MedSurg Code: Full Admission and Anticipated Discharge Date Admission Date: January 10, 2022 Supervising Physician Co-Signing Physician Notes I personally examined the patient and verified all laughlin points of history and exam, discussed case, and agree with decision making with Dr Martinez couldn't void. anne replaced vitals noted appears uncomfortable (later very uncomfortable for dr martinez) b reathing unlabored no accessory mmuscles good effort skin no rashes no pallor or icterus hematuria - post procedure. unfortunately could not void. anne re-placed. prefers to stay overnight given how painful it was - to ensure no clotting/retention w anne otherwise as above Subjective Patient seen at bedside this morning. No overnight events. No complaints at the time of visiting at bedside. Patient later had a voiding trial in the afternoon. I was called to bedside at 1500 hrs. the patient was stating that he was in extreme discomfort. At that time I had the patient bladder scan and it showed that he was retaining 778 cc of urine. After the bladder scan was done patient began screaming in pain repeatedly. Urology was contacted and they stated to place a 20 Mosotho Anne catheter. A 20 Mosotho Anne could not be found on the floor and the patient continued to be in pain, so a 16 Mosotho was placed instead and urine began flowing and his bladder was drained entirely pulling approximately 700 cc of urine that was in the Anne bag on the side of the bed. The urine was meng clear in nature with some very small clots present . Patient exclaimed relief after placement of Anne catheter. At this time was explained that the patient would like to stay an additional night so that he can be monitored in case he needs irrigated due to the catheter being clogged. The primary team felt that this was reasonable. Review of Systems Review of Systems: All systems reviewed & are unremarkable except as noted in HPI & below Physical Exam Constitutional: WD/WN, vitals as above Eyes: PERRL Neck: trachea midline, no thyromegaly Respiratory: normal respiratory effort, lungs clear to auscultation Cardiovascular: RRR, no murmur, no edema Gastrointestinal (Abdomen): normal bowel sounds, soft, nontender, no hepatosplenomegaly Musculoskeletal: Head/Neck/Chest: normocephalic and head atraumatic Skin: no rashes, warm and dry Neurologic: moves all extremities Psychiatric: A+Ox3, euthymic affect Genitourinary: Anne catheter now again in place with clear meng urine draining. Results & Data Results & Data ([facility]) Vital Signs (Past 12 Hours) Vital Signs Temp Pulse Resp BP Pulse Ox 01/11/22 07:38 36.9 C 69 17 136/82 96 (1) Hematuria Hematuria type: gross Qualified Code(s): R31.0 - Gross hematuria
--- NOTE | 2022-01-11 17:29 | Billing Data ---
Date of Service January 11, 2022 Coding Level of Care Code 46863 Subseq Hosp Care Lvl 2
[2022-01-11] MEDS: MELATONIN 3 MG TAB PO SCH (20:44)
[2022-01-11] MEDS: SIMVASTATIN 20 MG TAB PO SCH (20:46)
[2022-01-12 06:00] LABS: Hematocrit (blood only) 25.3 % (42-52); Hemoglobin 8.6 g/dL (14.0-18.0); Mean Corpuscular Hemoglobin 31.4 pg (25-34); Mean Corpuscular Volume 92.3 fL (80-100); Mean Platelet Volume 11.6 fL (7.4-10.4); Platelet Count 206 K/uL (130-400); RDW Coefficient of Variation 14.6 % (11.5-14.5); RDW Standard Deviation 48.2 fL (36.4-46.3); Red Blood Count 2.74 M/uL (4.7-6.1); White Blood Count 6.61 K/uL (4.8-10.8)
[2022-01-12 06:35] LABS: Calcium 8.4 mg/dl (8.5-10.1); Creatinine Clr Calc Pharmacy 83.4 ml/min; Est GFR (African American) 91.7 ml/min; Est GFR (Non-African American) 79.1 ml/min; Potassium 3.5 mmol/L (3.5-5.1)
[2022-01-12] MEDS: CHOLECALCIFEROL 1,000 UNITS 25 MCG TAB PO SCH (08:20)
[2022-01-12] MEDS: PANTOprazole 40 MG TAB PO SCH (08:21)
[2022-01-12] MEDS: FINASTERIDE 5 MG TAB PO SCH (08:21)
[2022-01-12] MEDS: CITALOPRAM 40 MG TAB PO SCH (08:21)
[2022-01-12] MEDS: CEROVITE ADV FORMULA TAB PO SCH (08:21)
--- NOTE | 2022-01-12 08:48 | Urology Progress Note ---
Date of Service January 12, 2022 Assessment & Plan (1) Hematuria: Plan: - POD #2 s/p Cystoscopy Clot Evacuation 1L Blood, Transurethral Resection Prostate with Dr. Garcia - Unfortunately he failed his voiding trial yesterday. - A 16Fr Rueda catheter was reinserted by nursing yesterday evening. - Rueda catheter intact and currently draining pink tinged urine without clot. - Pt tolerating the Rueda catheter without issue. - Afebrile, Labs reviewed- Creatinine normal. Hemoglobin 8.6 (8.7 yesterday). - UC&S from 01/08 no growth. - Plan to maintain Rueda catheter for now and we will arrange an outpatient voiding trial with urology for next week. - Okay to d/c from perspective with Rueda catheter when medically stable. - Patient agreeable to plan, all questions were answered. - Urology will sign-off. Please contact us with any further questions, concerns, or changes in patient status. Admission and Anticipated Discharge Date Admission Date: January 10, 2022 Subjective Pt examined at bedside this AM. Awake, resting in bed on arrival. Denies any pain or discomfort at present. Attempted voiding trial yesterday, however patient was unable to void. A bladder scan revealed 778 cc of urine. A 16Fr Rueda catheter was replaced by nursing. Rueda catheter intact, currently draining pink-tinged urine without clot. No fevers. Overall feeling well. No additional complaints at time of exam. Review of Systems Constitutional: as per Subjective / HPI Genitourinary: + as per Subjective / HPI Physical Exam Constitutional: well developed and well nourished; no acute distress Respiratory: normal respiratory effort; no respiratory distress and no labored breathing Neurologic: awake Psychiatric: Orientation: alert, oriented x 3 and cooperative Genitourinary: Rueda catheter intact, draining pink tinged urine without clot. Results & Data ([facility]) Vital Signs (Past 12 Hours) Vital Signs Temp Pulse Resp BP Pulse Ox 01/12/22 07:42 36.8 C 72 16 131/76 95 01/11/22 22:48 37.0 C 62 16 127/73 96 PG Care Time/CCT Total # of Minutes Spent Total Time Spent with Patient: Total time spent is greater than 50% in coordination of care (as documented) at patient's floor/unit and/or counseling patient: Coding Level of Care Code 04429 Subseq Hosp Care Lvl 2 Diagnoses Hematuria R31.0 Hematuria type: gross (1) Hematuria Hematuria type: gross Qualified Code(s): R31.0 - Gross hematuria
--- NOTE | 2022-01-12 11:25 | Discharge Summary ---
Date of Service January 12, 2022 Admission HPI Per Admitting Provider Efra Garland is a 71-year-old male with past medical history of anxiety/depression BPH, GERD, hyperlipidemia, history of TIA on clopidogrel who arrives today due to recurrent gross hematuria. Patient was admitted at our hospital 10 days ago due to similar complaint. He was seen by urology, who did a cystoscopy and found no bladder masses hematuria thought to be secondary to BPH. He was discharged with a catheter in place, which was removed in the outpatient setting on 01/04. After this, he did pass nonbloody urine for a couple of days but then on Saturday started urinating blood again. Today, he noticed he had started to pass blood clots again and was unable to urinate. Of note, patient's clopidogrel had been on hold and was restarted yesterday He notes that he does have some discomfort related to his inability to urinate and has needed to get up every couple of minutes to attempt with only blood clots coming out but very minimal amounts of urine. He denies abdominal pain, lower back pain, fever, chills, nausea, While in the ED, nurses placed Anne, which initially helped pass large clots and relieved his symptoms. However, shortly thereafter the Anne became clogged Anne was then irrigated but ended up being pulled out at that time. Labs with WBC of 5.45, Hgb stable at 12.2 from prior of 12.6, normal electrolytes. UA with >30 RBCs, >30 WBCs, 5-10 epithelial cells. Leuk esterase, nitrites, protein, pH uninterpretable due to urine color interference. Principal Diagnosis Hematuria Discharge Exam Constitutional WD/WN, vitals as above Eyes PERRL Neck trachea midline, no thyromegaly Respiratory normal respiratory effort, lungs clear to auscultation Cardiovascular RRR, no murmur, no edema Gastrointestinal (Abdomen) normal bowel sounds, soft, nontender, no hepatosplenomegaly Musculoskeletal Head/Neck/Chest: normocephalic and head atraumatic Skin no rashes, warm and dry Neurologic moves all extremities Psychiatric A+Ox3, euthymic affect Genitourinary Anne catheter in place with clear, meng urine present. Discharge Data Allergies Allergy/AdvReac Type Severity Reaction Status Date / Time No Known Allergies Allergy nkda Verified 01/09/22 01:37 Consultations 01/09/22 00:55 ED Decision to Admit Stat 01/09/22 10:54 Consult Urology Routine Procedures Performed Operation Date: 01/09/22 14:35 Actual Procedures p Transurethral Resection Prostate(Not Applicable) - Mak Garcia MD s Cystoscopy Clot Evacuation 1L Blood, (Not Applicable) - Mak Garcia MD Hospital Course (1) Hematuria: (2) Anxiety: (3) BPH (benign prostatic hyperplasia): (4) Hyperlipidemia: (5) [facility] (current) use of antithrombotics/antiplatelets: (6) GERD (gastroesophageal reflux disease): Hematuria - thought to be secondary to BPH per last admission Urology notes Patient presented to hospital with hematuria with recent hospitalization for similar complaint. While here patient was seen by urology who recommended Anne catheter placement with flushes followed by cystoscopy and TURP. Patient tolerated procedure well. Patient was then again placed on a Anne catheter with irrigation. On postop day 1 patient had a voiding trial for which he failed. Patient had a 16 Urdu Anne cath replaced for which meng, clear urine was flowing well without discernible clots. Patient was watched overnight to make sure the Anne catheter did not get clogged and it drained well throughout the night and into the morning without issue. At this time patient was deemed safe to return home with Anne catheter in place to be taken out by urology at a 1 week follow-up appointment. It was recommended by urology that Plavix be held for 1 week while prostate is healing. BPH - Continue finasteride - Defer consideration of Flomax to Urology History of TIA: -Continue to hold clopidogrel GERD: -Continue omeprazole Hyperlipidemia: - Continue simvastatin Anxiety: - Continue citalopram DVT prophylaxis: SCDs, chemoprophylaxis contraindicated due to hematuria FEN GI: Regular diet Dispo: MedSurg Code: Full Total Time Total Time Spent Total Time Spent (In Minutes): <30 Discharge Plan Discharge Items Patient Disposition: Home - Self-Care Reason For Visit: HEMATURIA Discharge Diagnosis: Hematuria Activity: Per Instructions section Non-emergency contact: Primary Care Provider and Urologist Call non-emergency contact if: you have any medication questions and your symptoms worsen Follow-up/Referrals: Alexey Bond MD [Physician] - 01/26/22 9:50 am Vamshi Red PA-C [Primary Care Provider] - [facility],RN [FAKE FOR SCHEDULES] - 01/15/22 11:20 am (Voiding trial with nursing) Diet: Regular Addtl Attending Provider Instructions: He was seen in the hospital for hematuria or blood in your urine. While you are here you were seen by our urologist, Dr. Garcia. Dr. Garcia performed a cystoscopy with a TURP procedure to aid in stopping the bleeding that was coming from your prostate. Following this you had continuous irrigation to help clean out any remaining blood/clots. Prior to leaving you had a voiding trial for which you are unable to urinate without a catheter in place so a different Anne catheter was reinserted for which you will be sent home with. You will have a follow-up appointment with urology in 1 week and at that time they will take the Anne catheter out for you. At this time we feel that it is safe for you to go home and follow-up with your primary care provider within 1 week as well. We recommend at this time that you withhold taking the Plavix for 1 week while your prostate is healing to prevent further bleeding/clot formation. It has been a pleasure to be a part of your care and we wish you the best in your recovery and your health. Addtl License Inspector Provider Instructions: Please call the Urology office at [phone] with any questions, concerns or need to reschedule appointments for any reason. We are happy to assist you. Please take all medications as prescribed and keep all follow-ups as scheduled. Tips for your recovery at home: Dont be alarmed by brownish or reddish blood or clots in your urine. This is a result of the procedure. This may occur off and on for weeks to months after the procedure but should continue to improve. Drink plenty of fluids during the day (enough to keep your urine very light colored). This will help keep a healthy flow of urine. Do not lift >25 lbs until your followup Avoid constipation. Please use a stool softener (Colace) if needed for the first two weeks after your procedure If you go home with a catheter, please wash tubing where it enters your body twice daily with mild soap (Dove or Dial). Once your catheter is removed, expect some blood in your urine and some burning when you urinate. You should have an appointment to have this removed, if you do not please call our office to arrange. When to call [facility] Urology at [phone]: Your urine contains heavy blood clots or your catheter is not draining. You are constantly leaking urine Fever of 101F or higher, chills, nausea, or vomiting Your pain is not relieved with medication Pending Studies at Discharge: No Stand-Alone Forms: My [facility], Smoking Cessation Medications and DC Order Prescriptions: Continued simvastatin 20 mg tablet 20 mg PO QPM RF: 0 omeprazole 20 mg capsule,delayed release(DR/EC) 20 mg PO QAM RF: 0 citalopram 40 mg tablet 40 mg PO DAILY RF: 0 melatonin 5 mg Tablet 5 mg PO HS RF: 0 finasteride [Proscar] 5 mg tablet 5 mg PO DAILY Qty: 30 RF: 0 cholecalciferol (vitamin D3) 25 mcg (1,000 unit) tablet 50 mcg PO TID RF: 0 Oren Mag Zinc Plus D3 333 mg-133 unit -133 mg-5 mg Tablet 1 tab PO DAILY RF: 0 Discontinued clopidogrel 75 mg tablet 75 mg PO QAM RF: 0 Discharge Orders: Discharge Order (Routine); Ordered 01/12/22 Ordered By: Rodri Dejesus/Other Patient Handouts: TURP, Indwelling Urinary Catheter Dc Admission Data Admit Date/Time: 01/10/22 19:33 Attending Provider: Angel Strong Admit Provider: Gui Gil Primary Care Provider: Vamshi Red Other Providers: [facility] ; Ryan Duffy ; Mak Garcia Other Interventions: Discharge Summary Assessment (RN) Last Done: 01/12/22 11:15 Supervising Physician Co-Signing Physician Notes I personally examined the patient and verified all laughlin points of history and exam, discussed case, and agree with decision making with Dr Martinez feeling fine since anne placed. feels up to going home vitals noted appears nad pleasant breathing unlabored no accessory mmuscles good effort skin no rashes no pallor or icterus hematuria - post procedure. unfortunately could not void. anne re-placed. no clotting/obstruction since - stable for home. outpt urology f/u otherwise as above
--- NOTE | 2022-01-12 17:44 | Billing Data ---
Date of Service January 12, 2022 Coding Level of Care Code D/C DAY MANAGEMENT <30 MINS
== END 2022-01-12 12:06 | disposition home or self-care (01) | DRG 666 ==
LOC: ED 21:23 → 3N 21:23 → SUATTDRO 01-09 01:44 → 3N 01-09 03:13

== ENCOUNTER 2022-02-11 12:17 | Observation (INO) ==
[2022-02-11] MEDS ORDERED: SODIUM CHLORIDE 0.9% 500 ML IV SCH (12:45)
[2022-02-11 12:55] LABS: Hematocrit (blood only) 33.4 % (42-52); Hemoglobin 10.6 g/dL (14.0-18.0); Mean Corpuscular Hgb Conc 31.7 g/dL (32-36); Mean Corpuscular Volume 91.5 fL (80-100); Mean Platelet Volume 11.4 fL (7.4-10.4); Platelet Count 161 K/uL (130-400); RDW Coefficient of Variation 14.6 % (11.5-14.5); RDW Standard Deviation 48.8 fL (36.4-46.3); Red Blood Count 3.65 M/uL (4.7-6.1); White Blood Count 2.57 K/uL (4.8-10.8)
--- NOTE | 2022-02-11 13:00 | Emergency Department Note ---
History of Present Illness General Chief complaint: Syncope (Near Syncope) Stated complaint: SYNCOPE, NAUSEA, AB PAIN Time Seen by Provider: 02/11/22 12:42 Source: patient and family History of Present Illness 71-year-old male presents emergency department with sudden onset of a near sync opal episode after he stood up to go to the kitchen to get a fork he states. Patient states he felt hot dizzy and nauseated. Patient stated to his that he felt like he was going to pass out and then reportedly was able to get to the floor. Patient has been doing this more frequently according to the . Patient of note recently had prostate surgery has had hematuria. Patient denies specific abdominal pain patient denies chest pain shortness of breath, ache neck pain prior to this event. Patient states he feels improved now but slightly nauseous; Home Medications Medication Instructions Recorded Confirmed Type omeprazole 20 mg capsule,delayed 20 mg PO QAM 09/15/19 01/26/22 History release simvastatin 20 mg tablet 20 mg PO QPM 09/15/19 01/26/22 History citalopram 40 mg tablet 40 mg PO DAILY 12/29/21 01/26/22 History melatonin 5 mg tablet 5 mg PO HS 12/29/21 01/26/22 History calcium carb 333 mg-vit D3 133 1 tab PO DAILY 01/09/22 01/26/22 History unit-mag ox 133 mg-zinc oxide 5 mg tab (Oren Mag Zinc Plus D3) cholecalciferol (vitamin D3) 25 50 mcg PO TID 01/09/22 01/26/22 History mcg (1,000 unit) tablet finasteride 5 mg tablet (Proscar) 5 mg PO DAILY #90 tab 01/26/22 01/26/22 Rx Allergies Allergy/AdvReac Type Severity Reaction Status Date / Time No Known Allergies Allergy nkda Verified 01/26/22 09:17 Past Med/Surg History Medical History Anxiety BPH (benign prostatic hyperplasia) GERD (gastroesophageal reflux disease) Hyperlipidemia Mini stroke 2016- on plavix Obesity Post traumatic stress disorder Sleep apnea BIPAP Surgical History H/O removal of cyst History of colonoscopy History of esophagogastroduodenoscopy (EGD) History of total left hip replacement History of total right knee replacement (TKR) History of transurethral resection of prostate Hx of appendectomy Hx of inguinal hernia repair right Family History Sister Cancer bone marrow Mother Heart disease Other No family history of adverse response to anesthesia Social History Smoking Status: Never smoker Second Hand Exposure: No; Hx Alcohol Use: Yes Alcohol type: beer Hx Substance Use: No Preferred Language: [place] Communication Ability: Effective Nursing Assoc Required: No Beliefs That Will Affect Care: None marital status: Current Living Situation: Spouse current occupational status: retired Feels Safe at Home: Yes Assistive Devices: Denture - Upper and Denture - Lower Review of Systems A total of 10 systems reviewed and were otherwise negative Respiratory: no cough Cardiovascular: no chest pain Gastrointestinal: + nausea; no abdominal pain Physical Exam Vital Signs Vital Signs - 24 hr 02/11/22 12:37 02/11/22 12:43 02/11/22 13:00 Temperature 36.8 C Temperature Source Oral Pulse Rate 58 L Pulse Rate [Apical] 56 L Pulse Rhythm Regular Pulse Strength Normal Respiratory Rate 20 18 Respiratory Effort / Characteristics Non-Labored Spontaneous Non-Labored Spontaneous Respiratory Depth Normal Normal Respiratory Pattern Regular Blood Pressure 118/77 Blood Pressure [Right Arm] 118/73 Blood Pressure Mean 90 Blood Pressure Mean [Right Arm] 88 Blood Pressure Position Sitting Pulse Oximetry 100 98 Oxygen Delivery Method Room Air Room Air Sepsis Recent Fever Within 48 Hours No Sepsis New/Unexplained Change in Mental Status N/A Sepsis Action Taken by Nursing No Action Required VITAL SIGNS - Vital signs and nursing notes were reviewed. GENERAL -71-year-old male appearing his stated age who is in no acute distress. Communicates well with provider and answers questions appropriately. SKIN - Without rashes. HEAD - NC/AT. EYES - PERRL with EOMI bilaterally. Sclera anicteric. Palpebral conjunctiva pink and moist with no injection noted. EARS - No deformities of external structures noted on gross examination bilaterally. NOSE - Midline and without cyanosis. No epistaxis or purulent drainage noted. Septum midline without deviation or septal hematoma noted. MOUTH/OROPHARYNX - Without perioral cyanosis. Buccal mucosa pink and moist and without leukoplakia. Tongue midline with equal elevation of palate bilaterally. No tonsillar hypertrophy, erythema, or exudates noted. [] dentition noted. NECK - Neck with FROM. Supple to palpation.. No nuchal rigidity. LUNGS - Chest wall symmetric without accessory muscle use, intercostals retractions, or central cyanosis. Normal vesicular breath sounds CTA B/L. No wheezes, rales, or rhonchi appreciated. CARDIAC - RRR with S1/S2. No murmur, rubs, or gallops appreciated. ABDOMEN - Abdominal contoursoft without pulsations or visible masses. BS no rmoactive all four quadrants. No tenderness, palpable masses, hepatosplenomegaly, or ascites noted. No abnormal masses or midline abnormal pulsations EXTREMITIES - No clubbing or peripheral cyanosis. No pretibial edema present. . +5/5 strength noted in UE/LE bilaterally. NEUROLOGIC - Cranial nerves II through XII grossly intact. Sensory intact to light touch throughout. NIH score is 0, GCS of 15 PSYCH - A&Ox3 and cooperates fully with examiner. Pt is very pleasant and interacts well with examiner. Course Administered Medications Discontinued Medications Sodium Chloride (Nss) 500 mls @ 999 mls/hr IV .Q31M ROBIN Stop: 02/11/22 13:15 Last Infusion: 02/11/22 13:39 Dose: 0 mls/hr Documented by: [id number] Admin: 02/11/22 13:08 Dose: 999 mls/hr Documented by: [id number] Ceftriaxone Sodium (Rocephin) 2,000 mg in 70 mls @ 140 mls/hr IV NOW STA Stop: 02/11/22 14:29 Last Admin: 02/11/22 14:41 Dose: 140 mls/hr Documented by: [id number] Medical Decision Making Medical Records Attestation: I reviewed the patient's medical records. Home Medications Current Medication List: was personally reviewed by me Laboratory Data Attestation: I reviewed the patient's lab results. Result diagrams: 02/11/22 12:30 02/11/22 12:30 Lab Results 02/11/22 02/11/22 02/11/22 Range/Units 12:30 12:30 12:30 WBC 2.57 L (4.8-10.8) K/uL RBC 3.65 L (4.7-6.1) M/uL Hgb 10.6 L (14.0-18.0) g/dL Hct 33.4 L (42-52) % MCV 91.5 (80-100) fL MCH 29.0 (25-34) pg MCHC 31.7 L (32-36) g/dL RDW Std Deviation 48.8 H (36.4-46.3) fL RDW Coeff of Leonora 14.6 H (11.5-14.5) % Plt Count 161 (130-400) K/uL MPV 11.4 H (7.4-10.4) fL Neutrophils % (Manual) 42.5 % Lymphocytes % (Manual) 47.7 % Monocytes % (Manual) 8.0 % Basophils % (Manual) 0.9 % Myelocytes % (Man) 0.9 % Neutrophils # (Manual) 1.09 L (1.4-6.5) K/uL Total Absolute Neuts 1.09 L (1.4-6.5) K/uL Lymphocytes # (Manual) 1.23 (1.2-3.4) K/uL Total Abs Lymphocytes 1.23 (1.2-3.4) K/uL Monocytes # (Manual) 0.21 (0.11-0.59) K/uL Basophils # (Manual) 0.02 (0-0.2) K/uL Myelocytes # (Manual) 0.02 H (0-0) K/uL PT 11.4 (9.0-12.0) Seconds INR 1.1 (0.9-1.1) APTT 20.3 L (21.0-31.0) Seconds PTT Ratio 0.7 Sodium (136-145) mmol/L Potassium (3.5-5.1) mmol/L Chloride (98-107) mmol/L Carbon Dioxide (21-32) mmol/L Anion Gap (3-11) BUN (6-23) mg/dl Creatinine (0.6-1.4) mg/dl Est Cr Clr Drug Dosing ml/min Est GFR ( Amer) ml/min Est GFR (Non-Af Amer) ml/min BUN/Creatinine Ratio (10-20) Glucose (70-99(Fasting)) mg/dl Calcium (8.5-10.1) mg/dl Magnesium (1.7-2.4) mg/dl Total Bilirubin (0.2-1.0) mg/dl AST (13-39) U/L ALT (7-52) U/L Alkaline Phosphatase (34-104) U/L Troponin I High Sens 15.8 (0-20) pg/ml Total Protein (6.0-8.3) gm/dl Albumin (3.4-5.0) gm/dl Globulin (2.5-4.0) gm/dl Albumin/Globulin Ratio (0.9-2) TSH (0.300-4.500) uIu/ml Free T4 (0.61-1.60) ng/dl Urine Color Urine Appearance (Clear) Urine pH (4.5-7.5) Ur Specific [place] (1.000-1.030) Urine Protein (Negative) Urine Glucose (UA) (Negative) Urine Ketones (Negative) Urine Blood (Negative) Urine Nitrite (Negative) Urine Bilirubin (Negative) Urine Urobilinogen (Negative) Ur Leukocyte Esterase (Negative) Urine WBC (Auto) (0-5) /hpf Urine RBC (Auto) (0-4) /hpf U Hyaline Cast (Auto) (0-5) /lpf U Epithel Cells (Auto) (0-5) /lpf Urine Bacteria (Auto) (Negative) Urine Crystals Calcium Oxalate Crystal (None Prsent) Urine Mucus (None Prsent) 02/11/22 02/11/22 02/11/22 Range/Units 12:30 12:30 13:15 WBC (4.8-10.8) K/uL RBC (4.7-6.1) M/uL Hgb (14.0-18.0) g/dL Hct (42-52) % MCV (80-100) fL MCH (25-34) pg MCHC (32-36) g/dL RDW Std Deviation (36.4-46.3) fL RDW Coeff of Leonora (11.5-14.5) % Plt Count (130-400) K/uL MPV (7.4-10.4) fL Neutrophils % (Manual) % Lymphocytes % (Manual) % Monocytes % (Manual) % Basophils % (Manual) % Myelocytes % (Man) % Neutrophils # (Manual) (1.4-6.5) K/uL Total Absolute Neuts (1.4-6.5) K/uL Lymphocytes # (Manual) (1.2-3.4) K/uL Total Abs Lymphocytes (1.2-3.4) K/uL Monocytes # (Manual) (0.11-0.59) K/uL Basophils # (Manual) (0-0.2) K/uL Myelocytes # (Manual) (0-0) K/uL PT (9.0-12.0) Seconds INR (0.9-1.1) APTT (21.0-31.0) Seconds PTT Ratio Sodium 139 (136-145) mmol/L Potassium 4.3 (3.5-5.1) mmol/L Chloride 107 (98-107) mmol/L Carbon Dioxide 22 (21-32) mmol/L Anion Gap 10 (3-11) BUN 24 H (6-23) mg/dl Creatinine 1.00 (0.6-1.4) mg/dl Est Cr Clr Drug Dosing 84.1 ml/min Est GFR ( Amer) 86.2 ml/min Est GFR (Non-Af Amer) 74.3 ml/min BUN/Creatinine Ratio 24.0 H (10-20) Glucose 166 H (70-99(Fasting)) mg/dl Calcium 9.0 (8.5-10.1) mg/dl Magnesium 1.8 (1.7-2.4) mg/dl Total Bilirubin 0.8 (0.2-1.0) mg/dl AST 13 (13-39) U/L ALT 12 (7-52) U/L Alkaline Phosphatase 47 (34-104) U/L Troponin I High Sens (0-20) pg/ml Total Protein 7.2 (6.0-8.3) gm/dl Albumin 4.1 (3.4-5.0) gm/dl Globulin 3.1 (2.5-4.0) gm/dl Albumin/Globulin Ratio 1.3 (0.9-2) TSH 4.695 H (0.300-4.500) uIu/ml Free T4 0.74 (0.61-1.60) ng/dl Urine Color Yellow Urine Appearance Cloudy A (Clear) Urine pH 6.0 (4.5-7.5) Ur Specific [place] 1.023 (1.000-1.030) Urine Protein 2+ H (Negative) Urine Glucose (UA) Negative (Negative) Urine Ketones Trace H (Negative) Urine Blood 2+ H (Negative) Urine Nitrite Positive A (Negative) Urine Bilirubin Negative (Negative) Urine Urobilinogen Negative (Negative) Ur Leukocyte Esterase 2+ H (Negative) Urine WBC (Auto) >30 H (0-5) /hpf Urine RBC (Auto) 5-10 H (0-4) /hpf U Hyaline Cast (Auto) 1-5 (0-5) /lpf U Epithel Cells (Auto) 5-10 H (0-5) /lpf Urine Bacteria (Auto) 1+ H (Negative) Urine Crystals Not Reportable Calcium Oxalate Crystal Present A (None Prsent) Urine Mucus Present A (None Prsent) Imaging Data Radiologist's Impression: Chest X-Ray 02/11/22 12:43 XR chest 1V portable HISTORY: 71 years-old Male syncope acute syncope COMPARISON: Chest radiograph 12/29/2021 TECHNIQUE: Portable AP view of the chest FINDINGS: The cardiomediastinal and hilar silhouettes are within normal limits. Atherosclerosis of the aorta. No pneumothorax, pleural effusion, airspace consolidation or overt pulmonary edema. Spondylitic spurring of the spine. IMPRESSION: No acute process. ACT 112: Negative or not required by law. The above report was generated using voice recognition software. It may contain grammatical, syntax or spelling errors. Electronically signed by: Edison Perez M.D. 02/11/2022 1:[address] 02/11/22 12:50 CT head/brain wo con CLINICAL HISTORY: 71 years-old Male with syncope. Acute syncope TECHNIQUE: Multiple axial CT images of the head were obtained without contrast. A dose lowering technique was utilized adhering to the principles of ALARA. CT DOSE: 614.27 mGy.cm COMPARISON: 04/28/2017 FINDINGS: No acute intracranial hemorrhage, midline shift, intracranial mass, hydrocephalus, territorial ischemia or abnormal extra-axial collection. Involutional changes. White matter hypodensities suggest chronic vascular ischemic disease. The calvarium is intact. The paranasal sinuses, mastoid air cells, and middle ear cavities are clear. IMPRESSION: No acute intracranial abnormality or calvarial fracture. ACT 112: Negative or not required by law. The above report was generated using voice recognition software. It may contain grammatical, syntax or spelling errors. Electronically signed by: Edison Perez M.D. 02/11/2022 2:50 PM MDM Narrative Medical decision making differential diagnosis syncope, near syncope, TIA, CVA, metabolic derangement, anemia, cardiac dysrhythmia; plan is to check a syncope work-up Impression & Plan Syncope, Urinary (tract) obstruction Discharge Plan Visit Data Chief Complaint: Syncope (Near Syncope) Stated Complaint: SYNCOPE, NAUSEA, AB PAIN ED Provider: Devonte Galicia Discharge Problem: Syncope, Urinary (tract) obstruction Patient Disposition: Being Evaluated by Hospitalist Forms Stand Alone Forms: [facility] [employer] Prescriptions Prescriptions: No Action finasteride [Proscar] 5 mg tablet 5 mg PO DAILY Qty: 90 RF: 3 simvastatin 20 mg tablet 20 mg PO QPM RF: 0 omeprazole 20 mg capsule,delayed release(DR/EC) 20 mg PO QAM RF: 0 citalopram 40 mg tablet 40 mg PO DAILY RF: 0 melatonin 5 mg Tablet 5 mg PO HS RF: 0 cholecalciferol (vitamin D3) 25 mcg (1,000 unit) tablet 50 mcg PO TID RF: 0 Oren Mag Zinc Plus D3 333 mg-133 unit -133 mg-5 mg Tablet 1 tab PO DAILY RF: 0 Referrals Referrals: Vamshi Red PA-C [Primary Care Provider] -
[2022-02-11 13:05] LABS: INR 1.1 (0.9-1.1); Partial Thromboplastin Ratio 0.7; Partial Thromboplastin Time 20.3 Seconds (21.0-31.0); Prothrombin Time 11.4 Seconds (9.0-12.0)
[2022-02-11 13:11] LABS: ALC (manual) 1.23 K/uL (1.2-3.4); ANC (manual) 1.09 K/uL (1.4-6.5); Basophils # (manual) 0.02 K/uL (0-0.2); Basophils % (manual) 0.9 %; Lymphocytes # (manual) 1.23 K/uL (1.2-3.4); Lymphocytes % (manual) 47.7 %; Monocytes # (manual) 0.21 K/uL (0.11-0.59); Myelocytes # (manual) 0.02 K/uL (0-0); Myelocytes % (manual) 0.9 %; Neutrophils # (manual) 1.09 K/uL (1.4-6.5); Neutrophils % (manual) 42.5 %
--- NOTE | 2022-02-11 13:23 | XRay Report ---
XR chest 1V portable HISTORY: 71 years-old Male syncope acute syncope COMPARISON: Chest radiograph 12/29/2021 TECHNIQUE: Portable AP view of the chest FINDINGS: The cardiomediastinal and hilar silhouettes are within normal limits. Atherosclerosis of the aorta. N o pneumothorax, pleural effusion, airspace consolidation or overt pulmonary edema. Spondylitic spurri ng of the spine. IMPRESSION: No acute process. ACT 112: Negative or not required by law. The above report was generated using voice recognition software. It may contain grammatical, syntax o r spelling errors. Electronically signed by: Edison Perez M.D. 02/11/2022 1:22 PM
[2022-02-11 13:28] LABS: Albumin Globulin Ratio 1.3 (0.9-2); Albumin Level 4.1 gm/dl (3.4-5.0); Bilirubin,Total 0.8 mg/dl (0.2-1.0); Creatinine Clr Calc Pharmacy 84.1 ml/min; Est GFR (African American) 86.2 ml/min; Est GFR (Non-African American) 74.3 ml/min; Globulin 3.1 gm/dl (2.5-4.0); Magnesium 1.8 mg/dl (1.7-2.4); Potassium 4.3 mmol/L (3.5-5.1); Total Protein 7.2 gm/dl (6.0-8.3)
[2022-02-11 13:35] LABS: Thyroid Stimulating Hormone 4.695 uIu/ml (0.300-4.500)
[2022-02-11 13:44] LABS: Appearance Urine Cloudy (Clear); Bacteria Urine Automated 1+ (Negative); Bilirubin Urine Negative (Negative); Blood Urine 2+ (Negative); Color Urine Yellow; Glucose Urine UA Negative (Negative); Ketones Urine Trace (Negative); Leukocyte Esterase Urine 2+ (Negative); Nitrite Urine Positive (Negative); Protein Urine 2+ (Negative); Specific Gravity Urine 1.023 (1.000-1.030); Urobilinogen Urine Negative (Negative); WBC Urine Automated >30 /hpf (0-5)
[2022-02-11 13:54] LABS: Mucus Urine Present (None Prsent)
[2022-02-11 13:55] LABS: Calcium Oxalate Crystals Urine Present (None Prsent)
[2022-02-11] MEDS ORDERED: cefTRIAXone SODIUM 2,000 MG/70 ML BAG IV STA (14:00)
[2022-02-11 14:10] LABS: T4 Free Thyroxine 0.74 ng/dl (0.61-1.60)
--- NOTE | 2022-02-11 14:52 | CT Scan Report ---
CT head/brain wo con CLINICAL HISTORY: 71 years-old Male with syncope. Acute syncope TECHNIQUE: Multiple axial CT images of the head were obtained without contrast. A dose lowering tech nique was utilized adhering to the principles of ALARA. CT DOSE: 614.27 mGy.cm COMPARISON: 04/28/2017 FINDINGS: No acute intracranial hemorrhage, midline shift, intracranial mass, hydrocephalus, territorial ischem ia or abnormal extra-axial collection. Involutional changes. White matter hypodensities suggest chron ic vascular ischemic disease. The calvarium is intact. The paranasal sinuses, mastoid air cells, and middle ear cavities are clear . IMPRESSION: No acute intracranial abnormality or calvarial fracture. ACT 112: Negative or not required by law. The above report was generated using voice recognition software. It may contain grammatical, syntax o r spelling errors. Electronically signed by: Edison Perez M.D. 02/11/2022 2:50 PM
--- NOTE | 2022-02-11 15:30 | History & Physical Report ---
Date of Service February 11, 2022 Assessment & Plan (1) Syncope: Plan: 71 yo M with recent extensive urologic history, HLD, GERD, CVA now on plavix who presents to the ER for syncope admitting for syncopal workup. Syncope - most likely combination of orthostasis +/- a degree of BPPV. Pt does have replication of dizziness with turning his head and changing positions. - Hg increased to 10, up from previous 8 though may be hemoconcentration. HD stable, repeat CBC in AM - EKG without notable arrhythmias, sinus arminda. will keep on telemetry overnight to monitor rhythm - noncon head CT negative. No electrolyte abnormalities Anemia - chronic, likely due to blood loss from previous hematuria but will get B12, folate, iron studies for evaluation Neutropenic Leukopenia - WBC 2.57 with 1.0 Neutrophils - no B symptoms, no previous low WBCs on record - peripheral smear and above red cell studies to examine marrow function Hx CVA - plavix held with recent hematuria per PCP. if Hg stable can discuss restarting Abnormal UA - UA showing mucus, oxalate crystals, dirty sample. urine culture pending. - treated with ceftriaxone x 1 - no constitutional symptoms of infection, no urinary symptoms, will discontinue ceftriaxone - blood cultures pending [drawn after ceftriaxone x 1] Chronic Medical Problems Anxiety: continue citalopram BPH: continue finasteride GERD: continue omeprazole HLD: continue statin Insomnia: continue melatonin HS Sleep Apnea: Bipap QHS DVT ppx: SCDs FEN/GI: regular diet Bowel regimen: daily miralax Code Status: Full Code Dispo: Med/Tele, (2) GERD (gastroesophageal reflux disease): (3) Hiatal hernia: (4) Anemia: (5) Neutropenia: (6) Hyperlipidemia: (7) BPH (benign prostatic hyperplasia): (8) Anxiety: History of Present Illness Primary Care Provider: Vamshi Red PA-C 71-year-old male with a past medical history of hyperlipidemia, remote history of CVA/TIA?, 2 recent prostate surgeries and recent history of hematuria brought to the ER today for symptoms of presyncope. History taken from patient and his together. states that he has had been having increasing episodes of being dizzy and "falling up the stairs". Patient states that he has had a couple of episodes of dizziness with turning his head or changing positions from sitting to standing or laying to sitting. This morning he attests to having had some dry heaving but denies any actual emesis. He denies any diarrhea and has some mild nausea. He says that he did have some feelings of dizziness prior to being presyncopal and slowly easing himself down onto the ground in his kitchen. He did not fall or hit his head or lose consciousness. He says the dizziness has been happening more frequently but has not passed out recently. He denies any chest pain, chest tightness. He does attest to having random episodes of shortness of breath while at rest that are accompanied by sweats. He denies any history of heart attack or coronary artery disease. He denies any fevers, chills, night sweats. Separately his is somewhat concerned about his memory. She states that he has been forgetting more things recently. She gives examples of him forgetting how to turn on the front burner of the stove they have had for years as well as forgetting short-term things like conversations that just occurred. He notes that he has also had a new tremor appear in his right arm. He says this does not happen on a reliable pattern. He has had intermittent shooting tingling and numbness down his right arm but never the left. 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 He states his strength in his right leg is also weaker than his left leg. Allergies Allergy/AdvReac Type Severity Reaction Status Date / Time No Known Allergies Allergy nkda Verified 02/11/22 16:01 Home Medications Medication Instructions Recorded Confirmed Type omeprazole 20 mg capsule,delayed 20 mg PO QAM 09/15/19 02/11/22 History release simvastatin 20 mg tablet 20 mg PO QPM 09/15/19 02/11/22 History citalopram 40 mg tablet 40 mg PO DAILY 12/29/21 02/11/22 History melatonin 5 mg tablet 5 mg PO HS 12/29/21 02/11/22 History calcium carb 333 mg-vit D3 133 1 tab PO DAILY 01/09/22 02/11/22 History unit-mag ox 133 mg-zinc oxide 5 mg tab (Oren Mag Zinc Plus D3) cholecalciferol (vitamin D3) 25 50 mcg PO TID 01/09/22 02/11/22 History mcg (1,000 unit) tablet finasteride 5 mg tablet (Proscar) 5 mg PO DAILY #90 tab 01/26/22 02/11/22 Rx clopidogrel 75 mg tablet 75 mg PO .ON HOLD 02/11/22 02/11/22 History Past Med/Surg History Medical History (Updated 02/11/22 @ 17:18 by Linh Willis MD) Anxiety BPH (benign prostatic hyperplasia) s/p TURP GERD (gastroesophageal reflux disease) Hematuria Hyperlipidemia Mini stroke 2016- on plavix Obesity Post traumatic stress disorder Sleep apnea BIPAP Surgical History (Updated 02/11/22 @ 16:57 by Linh Willis MD) H/O removal of cyst History of colonoscopy History of esophagogastroduodenoscopy (EGD) History of total left hip replacement History of total right knee replacement (TKR) History of transurethral resection of prostate Hx of appendectomy Hx of inguinal hernia repair right Status post laparoscopic fundoplication Family History Sister Cancer bone marrow Mother Heart disease Other No family history of adverse response to anesthesia Social History Smoking Status: Never smoker Second Hand Exposure: No; Hx Alcohol Use: Yes Alcohol type: beer Hx Substance Use: No Preferred Language: Wolof Communication Ability: Effective [employer]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 Eyes: EOMI, pupils equal and reactive bilaterally, no scleral icterus Ears: normal TM bilaterally Cardiac: RRR, no murmurs, gallops or rubs. Normal S1, S2 Pulm: CTA BL, no wheezes, rhonchi, crackles or rubs, moving air well throughout both lungs Abd: soft, nontender, nondistended, normal bowel sounds, no rebound or guarding Extremities: 2+ peripheral pulses, no edema Neuro: strength of L leg > R leg, moving all 4 limbs, A&Ox3, L4, L5, S1 sensation intact Psych: normal mood and affect Results & Data Results & Data ([facility]) Vital Signs (Past 12 Hours) Vital Signs Temp Pulse Pulse Resp BP BP Pulse Ox 02/11/22 13:00 56 L 18 118/73 98 02/11/22 12:37 36.8 C 58 L 20 118/77 100 Laboratory Results Laboratory Results WBC 2.57 K/uL (4.8-10.8) L 02/11/22 12:30 RBC 3.65 M/uL (4.7-6.1) L 02/11/22 12:30 Hgb 10.6 g/dL (14.0-18.0) L 02/11/22 12:30 Hct 33.4 % (42-52) L 02/11/22 12:30 MCV 91.5 fL (80-100) 02/11/22 12:30 MCH 29.0 pg (25-34) 02/11/22 12:30 MCHC 31.7 g/dL (32-36) L 02/11/22 12:30 RDW Std Deviation 48.8 fL (36.4-46.3) H 02/11/22 12:30 RDW Coeff of Leonora 14.6 % (11.5-14.5) H 02/11/22 12:30 Plt Count 161 K/uL (130-400) 02/11/22 12:30 MPV 11.4 fL (7.4-10.4) H 02/11/22 12:30 Neutrophils % (Manual) 42.5 % 02/11/22 12:30 Lymphocytes % (Manual) 47.7 % 02/11/22 12:30 Monocytes % (Manual) 8.0 % 02/11/22 12:30 Basophils % (Manual) 0.9 % 02/11/22 12:30 Myelocytes % (Man) 0.9 % 02/11/22 12:30 Neutrophils # (Manual) 1.09 K/uL (1.4-6.5) L 02/11/22 12:30 Total Absolute Neuts 1.09 K/uL (1.4-6.5) L 02/11/22 12:30 Lymphocytes # (Manual) 1.23 K/uL (1.2-3.4) 02/11/22 12:30 Total Abs Lymphocytes 1.23 K/uL (1.2-3.4) 02/11/22 12:30 Monocytes # (Manual) 0.21 K/uL (0.11-0.59) 02/11/22 12:30 Basophils # (Manual) 0.02 K/uL (0-0.2) 02/11/22 12:30 Myelocytes # (Manual) 0.02 K/uL (0-0) H 02/11/22 12:30 PT 11.4 Seconds (9.0-12.0) 02/11/22 12:30 INR 1.1 (0.9-1.1) 02/11/22 12:30 APTT 20.3 Seconds (21.0-31.0) L 02/11/22 12:30 PTT Ratio 0.7 02/11/22 12:30 Sodium 139 mmol/L (136-145) 02/11/22 12:30 Potassium 4.3 mmol/L (3.5-5.1) 02/11/22 12:30 Chloride 107 mmol/L (98-107) 02/11/22 12:30 Carbon Dioxide 22 mmol/L (21-32) 02/11/22 12:30 Anion Gap 10 (3-11) 02/11/22 12:30 BUN 24 mg/dl (6-23) H 02/11/22 12:30 Creatinine 1.00 mg/dl (0.6-1.4) 02/11/22 12:30 Est Cr Clr Drug Dosing 84.1 ml/min 02/11/22 12:30 Est GFR ( Amer) 86.2 ml/min 02/11/22 12:30 Est GFR (Non-Af Amer) 74.3 ml/min 02/11/22 12:30 BUN/Creatinine Ratio 24.0 (10-20) H 02/11/22 12:30 Glucose 166 mg/dl (70-99(Fasting)) H 02/11/22 12:30 Calcium 9.0 mg/dl (8.5-10.1) 02/11/22 12:30 Magnesium 1.8 mg/dl (1.7-2.4) 02/11/22 12:30 Total Bilirubin 0.8 mg/dl (0.2-1.0) 02/11/22 12:30 AST 13 U/L (13-39) 02/11/22 12:30 ALT 12 U/L (7-52) 02/11/22 12:30 Alkaline Phosphatase 47 U/L (34-104) 02/11/22 12:30 Troponin I High Sens 15.8 pg/ml (0-20) 02/11/22 12:30 Total Protein 7.2 gm/dl (6.0-8.3) 02/11/22 12:30 Albumin 4.1 gm/dl (3.4-5.0) 02/11/22 12:30 Globulin 3.1 gm/dl (2.5-4.0) 02/11/22 12:30 Albumin/Globulin Ratio 1.3 (0.9-2) 02/11/22 12:30 TSH 4.695 uIu/ml (0.300-4.500) H 02/11/22 12:30 Free T4 0.74 ng/dl (0.61-1.60) 02/11/22 12:30 Urine Color Yellow 02/11/22 13:15 Urine Appearance Cloudy (Clear) A 02/11/22 13:15 Urine pH 6.0 (4.5-7.5) 02/11/22 13:15 Ur Specific Libby 1.023 (1.000-1.030) 02/11/22 13:15 Urine Protein 2+ (Negative) H 02/11/22 13:15 Urine Glucose (UA) Negative (Negative) 02/11/22 13:15 Urine Ketones Trace (Negative) H 02/11/22 13:15 Urine Blood 2+ (Negative) H 02/11/22 13:15 Urine Nitrite Positive (Negative) A 02/11/22 13:15 Urine Bilirubin Negative (Negative) 02/11/22 13:15 Urine Urobilinogen Negative (Negative) 02/11/22 13:15 Ur Leukocyte Esterase 2+ (Negative) H 02/11/22 13:15 Urine WBC (Auto) >30 /hpf (0-5) H 02/11/22 13:15 Urine RBC (Auto) 5-10 /hpf (0-4) H 02/11/22 13:15 U Hyaline Cast (Auto) 1-5 /lpf (0-5) 02/11/22 13:15 U Epithel Cells (Auto) 5-10 /lpf (0-5) H 02/11/22 13:15 Urine Bacteria (Auto) 1+ (Negative) H 02/11/22 13:15 Urine Crystals Not Reportable 02/11/22 13:15 Calcium Oxalate Crystal Present (None Prsent) A 02/11/22 13:15 Urine Mucus Present (None Prsent) A 02/11/22 13:15 SARS-CoV-2, RNA, NAAT NEGATIVE (NEGATIVE) 02/11/22 15:45 Impressions Chest X-Ray 02/11/22 12:43 XR chest 1V portable HISTORY: 71 years-old Male syncope acute syncope COMPARISON: Chest radiograph 12/29/2021 TECHNIQUE: Portable AP view of the chest FINDINGS: The cardiomediastinal and hilar silhouettes are within normal limits. Atherosclerosis of the aorta. No pneumothorax, pleural effusion, airspace consolidation or overt pulmonary edema. Spondylitic spurring of the spine. IMPRESSION: No acute process. ACT 112: Negative or not required by law. The above report was generated using voice recognition software. It may contain grammatical, syntax or spelling errors. Electronically signed by: Edison Perez M.D. 02/11/2022 1:[address] 02/11/22 12:50 CT head/brain wo con CLINICAL HISTORY: 71 years-old Male with syncope. Acute syncope TECHNIQUE: Multiple axial CT images of the head were obtained without contrast. A dose lowering technique was utilized adhering to the principles of ALARA. CT DOSE: 614.27 mGy.cm COMPARISON: 04/28/2017 FINDINGS: No acute intracranial hemorrhage, midline shift, intracranial mass, hydrocephalus, territorial ischemia or abnormal extra-axial collection. Involutional changes. White matter hypodensities suggest chronic vascular ischemic disease. The calvarium is intact. The paranasal sinuses, mastoid air cells, and middle ear cavities are clear. IMPRESSION: No acute intracranial abnormality or calvarial fracture. ACT 112: Negative or not required by law. The above report was generated using voice recognition software. It may contain grammatical, syntax or spelling errors. Electronically signed by: Edison Perez M.D. 02/11/2022 2:50 PM Supervising Physician Co-Signing Physician Notes I personally examined the patient and verified all laughlin points of history and exam, discussed case, and agree with decision making with Dr Willis. Lightheaded. Better at rest. Vitals noted, in general he is awake and alert pleasant no distress. HEENT normocephalic atraumatic mucous membranes moist. Breathing unlabored no accessory muscle use good effort. Skin shows no rashes no pallor or icterus. Neuro without focal deficits. Near syncopesuspect some degree of volume depletion. Has been given some fluids in the ERwould continue at a gentle rate. Follow-up labs in the morning. PT/OT eval and treat. Abnormal UAalmost certainly from recent and extensive urologic procedures/catheterization/etc.in the absence of urinary symptoms or other septic signs or symptoms would not view this as a UTI Leukopenia/borderline neutropeniano clear cause for thisrecheck, check "building blocks" (iron B12 folate), and peripheral smear Otherwise as above Resident Activity Tracking Resident Involvement: Resident Care Provided Care Provided: Adult Hospital Medicine (1) Syncope Syncope type: unspecified Qualified Code(s): R55 - Syncope and collapse
--- NOTE | 2022-02-11 16:43 | Billing Data ---
Date of Service February 11, 2022 Coding Level of Care Code INT OBSERVATION CARE 68M LVL 3
[2022-02-11] MEDS ORDERED: LACTATED RINGER'S 1,000 ML IV SCH (18:51)
[2022-02-11] MEDS ORDERED: ONDANSETRON INJ 2 MG/ML 2 ML VIAL IV PRN (18:51)
[2022-02-11] MEDS ORDERED: NITROGLYCERIN SL 0.4 MG/TAB TAB SL PRN (18:51)
[2022-02-11] MEDS ORDERED: ACETAMINOPHEN 325 MG TAB PO PRN (18:51)
[2022-02-11] MEDS ORDERED: MECLIZINE 12.5 MG TAB PO PRN (18:51)
[2022-02-11 19:33] LABS: Ferritin 7.6 ng/ml (8-388)
[2022-02-11] MEDS: SODIUM CHLORIDE 0.9% 1000ML 1,000 ML IV SCH (20:34)
[2022-02-11] MEDS: SIMVASTATIN 20 MG TAB PO SCH (20:35)
[2022-02-11] MEDS: MELATONIN 3 MG TAB PO SCH (20:35)
[2022-02-12] MEDS: SODIUM CHLORIDE 0.9% 1000ML 1,000 ML IV SCH ×2 (03:53→14:01)
[2022-02-12] MEDS ORDERED: IRON SUCROSE 300 MG in SODIUM CHLORIDE 0.9% 250 ML IV ONE ×2 (07:19→08:30)
[2022-02-12 07:29] LABS: Basophils # (auto) 0.01 K/uL (0-0.2); Basophils % (auto) 0.3 %; Hemoglobin 9.6 g/dL (14.0-18.0); Immature Granulocytes # (auto) 0.01 K/uL (0.00-0.02); Immature Granulocytes % (auto) 0.3 %; Lymphocytes # (auto) 1.41 K/uL (1.2-3.4); Lymphocytes % (auto) 44.5 %; Mean Corpuscular Hemoglobin 28.7 pg (25-34); Mean Corpuscular Volume 92.8 fL (80-100); Mean Platelet Volume 11.9 fL (7.4-10.4); Monocytes # (auto) 0.72 K/uL (0.11-0.59); Monocytes % (auto) 22.7 %; Neutrophils # (auto) 1.02 K/uL (1.4-6.5); Neutrophils % (auto) 32.2 %; Platelet Count 159 K/uL (130-400); RDW Coefficient of Variation 14.9 % (11.5-14.5); RDW Standard Deviation 50.7 fL (36.4-46.3); Red Blood Count 3.34 M/uL (4.7-6.1); White Blood Count 3.17 K/uL (4.8-10.8)
[2022-02-12 07:53] LABS: BUN Creatinine Ratio 22.7 (10-20); Calcium 8.4 mg/dl (8.5-10.1); Creatinine Clr Calc Pharmacy 109.2 ml/min; Est GFR (African American) 105.5 ml/min; Potassium 4.1 mmol/L (3.5-5.1)
--- NOTE | 2022-02-12 08:22 | Hospitalist Progress Note ---
Date of Service February 12, 2022 Assessment & Plan (1) Syncope: Plan: 71 yo M with recent extensive urologic history, HLD, GERD, CVA (off plavix due to hematuria) who presented to the ER for dizziness/pre-syncope/falling up stairs/balance issues Pre-Syncope/Syncope most likely combination of orthostasis +/- a degree of BPPV. * Pt does have replication of dizziness with turning his head and changing positions. Hgb 10 on admit but suspected hemoconcentrated --> Iron studies with LOW IRON VENOFER ORDERED, checking b12/folate as well EKG with sinus arminda, denied any prodrome of symptomatic bradycardia/tunnel vision or palpitations prior to feeling like he's going to pass out. Also felt like needed to void/move bowels and could have component of vasovagal CT of head NO ACUTE CVA -- hx TIA/CVA noted in past but off plavix per Urology for "couple more weeks" for recent episodes of hematuria. Orthostatics -- improved, and can discontinue IVF later today --> Denied any urinary symptoms, but UA on admission did look infected and was given dose of ceftriaxone x 1. Will repeat for today given improvement of symptoms and monitor urine cx Will check ECHO, but no murmur on examination. No evidence for bruits on examination PT/OT consults pending Anemia --Acute on chronic. No NSAID use/melena/BRBPR reported --> Iron studies c/w RONDA, and venofer ordered, repeat dose in AM TSH elevated, but Ft4 wnl, not on any thyroid replacement therapy Consider checking fecal occult, but patient denied any issues B12/folate added to AM labs for completeness CBC in AM Abnormal UA UA showing mucus, oxalate crystals, dirty sample however WBC>epi and given syncope/feeling weak/falling up stairs, considering treating despite denying urinary symptoms --> Ceftriaxone x 1 in ER, repeat today. Monitor urine cx -Of note, blood cx drawn on admission but after abx given Left Finger laceration --> Reported cutting 3rd finger cutting potatoes on mandolin over the weekend. He reported some purulant drainage/pimple this morning, drained himself. No further drainage on exam/erythema --> Cleanse/cover. Monitor for any signs/sx of issues. NVI, no need for imaging at this time but consider if worsens/consultation with ortho but appears superficial, but is over the joint Hx CVA Plavix held with recent hematuria per PCP --> would consider restarting in AM if hgb stable given no report of ongoing hematuria (although RBC noted on UA) Neutropenic Leukopenia WBC 2.57 with 1.0 Neutrophils no B symptoms, no previous low WBCs on record peripheral smear and above red cell studies to examine marrow function, inconclusive Monitor CBC in AM Chronic Medical Problems Anxiety: * continue citalopram BPH: * continue finasteride GERD: * continue omeprazole HLD: * continue statin Insomnia: * continue melatonin HS Sleep Apnea: * Bipap QHS DVT Prophyalxis: (2) GERD (gastroesophageal reflux disease): (3) Hiatal hernia: (4) Anemia: (5) Neutropenia: (6) Hyperlipidemia: (7) BPH (benign prostatic hyperplasia): (8) Anxiety: Admission and Anticipated Discharge Date Admission Date: February 11, 2022 Supervising Physician Co-Signing Physician Notes Attending Attestation - Chart reviewed in detail, care plan d/w SAKSHI Womack. I agree w/ the laughlin components of her documentation. 71yo with episodes of presyncope/dizziness and falling along with spousal concern of memory loss. Some episodes sound vertiginous in nature. u/a suggestive of UTI - on rocephin. CBC with leukopenia, neutropenia, and anemia. Etiology uncertain. Repeat CBC in am. PT eval for the vertigo. Darrell Esparza MD Subjective Patient evaluated closer to lunch. States doing alright. Had sliced finger on mandolin cutting potatoes this weekend, slight cut to 3rd L digit, stated swollen/tender this morning but he "popped it" and now feeling better. No erythema, sensation intact. Discussed if pain worsens/redness/fever please alert, or if any further drainage. He notes dizziness when initially getting up/turning his head. Improvement today noted, and discussed low iron and replacement. Therapy to also see and discussed possibly Concha maneuvers. Denies any urinary symptoms, but given weakness, he did get a dose of Ceftriaxone yesterday and will monitor cultures, but consider treating depending on course. No further doses for now. No blood in stool noted, melena. Denies upper GI symptoms. Does admit to hx of hernia repair about ten years ago. No fever/chills, chest pain, shortness of breath (with exception some exertional at times/walking up steps). No palpitations prior to episodes of feeling syncopal. Questions/concerns addressed at this time. Review of Systems Review of Systems: All systems reviewed & are unremarkable except as noted in HPI & below Physical Exam Physical Exam: Constitutional: WD/WN male sitting up in bed, talking on phone, no acute distress HEENT: head normocephalic, atraumatic, pupils EOMI, equal and reactive bilaterally, no scleral icterus. TM intact bilaterally, trachea midline without deviation Resp: CTAB, no w/c/r, on room air CV: RRR, no m/r/g, S1/S2 normal, no calf tenderness/edema GI: +BS, obese, non-tender, no guarding/rigidity Psych: AOx3 , pleasant and cooperative Neuro/MSK: LLE >RLE strength 4/5 vs 5/5, moves all limbs, NVI, DTRs intact. 3rd finger LEFT hand, DIP with small wound over joint space, non-tender/non-erythematous, no drainage able to be expressed Results & Data Results & Data ([facility]) Vital Signs (Past 12 Hours) Vital Signs Temp Pulse Pulse Resp BP Pulse Ox 02/12/22 07:41 36.5 C 62 18 117/72 98 02/12/22 07:00 61 02/12/22 03:40 36.5 C 50 L 18 128/85 96 02/12/22 03:25 56 L 21 97 02/12/22 01:28 56 L 02/11/22 23:06 36.5 C 56 L 18 119/69 97 02/11/22 22:15 60 17 97 Laboratory Results 02/12/22 02/12/22 02/12/22 Range/Units 08:07 07:01 07:01 WBC 3.17 L (4.8-10.8) K/uL RBC 3.34 L (4.7-6.1) M/uL Hgb 9.6 L (14.0-18.0) g/dL Hct 31.0 L (42-52) % MCV 92.8 (80-100) fL MCH 28.7 (25-34) pg MCHC 31.0 L (32-36) g/dL RDW Std Deviation 50.7 H (36.4-46.3) fL RDW Coeff of Leonora 14.9 H (11.5-14.5) % Plt Count 159 (130-400) K/uL MPV 11.9 H (7.4-10.4) fL Immature Gran % (Auto) 0.3 % Neut % (Auto) 32.2 % Lymph % (Auto) 44.5 % [place] % (Auto) 22.7 % Eos % (Auto) 0.0 % Baso % (Auto) 0.3 % Neut # (Auto) 1.02 L (1.4-6.5) K/uL Lymph # (Auto) 1.41 (1.2-3.4) K/uL [place] # (Auto) 0.72 H (0.11-0.59) K/uL Eos # (Auto) 0.00 (0-0.5) K/uL Baso # (Auto) 0.01 (0-0.2) K/uL Immature Gran # (Auto) 0.01 (0.00-0.02) K/uL Neutrophils % (Manual) % Lymphocytes % (Manual) % Monocytes % (Manual) % Basophils % (Manual) % Myelocytes % (Man) % Neutrophils # (Manual) (1.4-6.5) K/uL Total Absolute Neuts (1.4-6.5) K/uL Lymphocytes # (Manual) (1.2-3.4) K/uL Total Abs Lymphocytes (1.2-3.4) K/uL Monocytes # (Manual) (0.11-0.59) K/uL Basophils # (Manual) (0-0.2) K/uL Myelocytes # (Manual) (0-0) K/uL Peripher Smr Path Cons PT (9.0-12.0) Seconds INR (0.9-1.1) APTT (21.0-31.0) Seconds PTT Ratio Sodium 139 (136-145) mmol/L Potassium 4.1 (3.5-5.1) mmol/L Chloride 108 H (98-107) mmol/L Carbon Dioxide 26 (21-32) mmol/L Anion Gap 5 (3-11) BUN 17 (6-23) mg/dl Creatinine 0.75 (0.6-1.4) mg/dl Est Cr Clr Drug Dosing 109.2 ml/min Est GFR ( Amer) 105.5 ml/min Est GFR (Non-Af Amer) 91.0 ml/min BUN/Creatinine Ratio 22.7 H (10-20) Glucose 114 H (70-99(Fasting)) mg/dl Calcium 8.4 L (8.5-10.1) mg/dl Magnesium (1.7-2.4) mg/dl Iron (35-175) mcg/dl Transferrin (200-360) mg/dl Ferritin (8-388) ng/ml Total Bilirubin (0.2-1.0) mg/dl AST (13-39) U/L ALT (7-52) U/L Alkaline Phosphatase (34-104) U/L Troponin I High Sens (0-20) pg/ml Total Protein (6.0-8.3) gm/dl Albumin (3.4-5.0) gm/dl Globulin (2.5-4.0) gm/dl Albumin/Globulin Ratio (0.9-2) Vitamin B12 Pending TSH (0.300-4.500) uIu/ml Free T4 (0.61-1.60) ng/dl Urine Color Urine Appearance (Clear) Urine pH (4.5-7.5) Ur Specific [place] (1.000-1.030) Urine Protein (Negative) Urine Glucose (UA) (Negative) Urine Ketones (Negative) Urine Blood (Negative) Urine Nitrite (Negative) Urine Bilirubin (Negative) Urine Urobilinogen (Negative) Ur Leukocyte Esterase (Negative) Urine WBC (Auto) (0-5) /hpf Urine RBC (Auto) (0-4) /hpf U Hyaline Cast (Auto) (0-5) /lpf U Epithel Cells (Auto) (0-5) /lpf Urine Bacteria (Auto) (Negative) Urine Crystals Calcium Oxalate Crystal (None Prsent) Urine Mucus (None Prsent) SARS-CoV-2, RNA, NAAT (NEGATIVE) 02/11/22 02/11/22 02/11/22 Range/Units 15:45 13:15 12:30 WBC (4.8-10.8) K/uL RBC (4.7-6.1) M/uL Hgb (14.0-18.0) g/dL Hct (42-52) % MCV (80-100) fL MCH (25-34) pg MCHC (32-36) g/dL RDW Std Deviation (36.4-46.3) fL RDW Coeff of Leonora (11.5-14.5) % Plt Count (130-400) K/uL MPV (7.4-10.4) fL Immature Gran % (Auto) % Neut % (Auto) % Lymph % (Auto) % [place] % (Auto) % Eos % (Auto) % Baso % (Auto) % Neut # (Auto) (1.4-6.5) K/uL Lymph # (Auto) (1.2-3.4) K/uL [place] # (Auto) (0.11-0.59) K/uL Eos # (Auto) (0-0.5) K/uL Baso # (Auto) (0-0.2) K/uL Immature Gran # (Auto) (0.00-0.02) K/uL Neutrophils % (Manual) % Lymphocytes % (Manual) % Monocytes % (Manual) % Basophils % (Manual) % Myelocytes % (Man) % Neutrophils # (Manual) (1.4-6.5) K/uL Total Absolute Neuts (1.4-6.5) K/uL Lymphocytes # (Manual) (1.2-3.4) K/uL Total Abs Lymphocytes (1.2-3.4) K/uL Monocytes # (Manual) (0.11-0.59) K/uL Basophils # (Manual) (0-0.2) K/uL Myelocytes # (Manual) (0-0) K/uL Peripher Smr Path Cons PT (9.0-12.0) Seconds INR (0.9-1.1) APTT (21.0-31.0) Seconds PTT Ratio Sodium (136-145) mmol/L Potassium (3.5-5.1) mmol/L Chloride (98-107) mmol/L Carbon Dioxide (21-32) mmol/L Anion Gap (3-11) BUN (6-23) mg/dl Creatinine (0.6-1.4) mg/dl Est Cr Clr Drug Dosing ml/min Est GFR ( Amer) ml/min Est GFR (Non-Af Amer) ml/min BUN/Creatinine Ratio (10-20) Glucose (70-99(Fasting)) mg/dl Calcium (8.5-10.1) mg/dl Magnesium (1.7-2.4) mg/dl Iron 27 L (35-175) mcg/dl Transferrin 329 (200-360) mg/dl Ferritin 7.6 L (8-388) ng/ml Total Bilirubin (0.2-1.0) mg/dl AST (13-39) U/L ALT (7-52) U/L Alkaline Phosphatase (34-104) U/L Troponin I High Sens (0-20) pg/ml Total Protein (6.0-8.3) gm/dl Albumin (3.4-5.0) gm/dl Globulin (2.5-4.0) gm/dl Albumin/Globulin Ratio (0.9-2) Vitamin B12 TSH (0.300-4.500) uIu/ml Free T4 (0.61-1.60) ng/dl Urine Color Yellow Urine Appearance Cloudy A (Clear) Urine pH 6.0 (4.5-7.5) Ur Specific [place] 1.023 (1.000-1.030) Urine Protein 2+ H (Negative) Urine Glucose (UA) Negative (Negative) Urine Ketones Trace H (Negative) Urine Blood 2+ H (Negative) Urine Nitrite Positive A (Negative) Urine Bilirubin Negative (Negative) Urine Urobilinogen Negative (Negative) Ur Leukocyte Esterase 2+ H (Negative) Urine WBC (Auto) >30 H (0-5) /hpf Urine RBC (Auto) 5-10 H (0-4) /hpf U Hyaline Cast (Auto) 1-5 (0-5) /lpf U Epithel Cells (Auto) 5-10 H (0-5) /lpf Urine Bacteria (Auto) 1+ H (Negative) Urine Crystals Not Reportable Calcium Oxalate Crystal Present A (None Prsent) Urine Mucus Present A (None Prsent) SARS-CoV-2, RNA, NAAT NEGATIVE (NEGATIVE) 02/11/22 02/11/22 02/11/22 Range/Units 12:30 12:30 12:30 WBC (4.8-10.8) K/uL RBC (4.7-6.1) M/uL Hgb (14.0-18.0) g/dL Hct (42-52) % MCV (80-100) fL MCH (25-34) pg MCHC (32-36) g/dL RDW Std Deviation (36.4-46.3) fL RDW Coeff of Leonora (11.5-14.5) % Plt Count (130-400) K/uL MPV (7.4-10.4) fL Immature Gran % (Auto) % Neut % (Auto) % Lymph % (Auto) % [place] % (Auto) % Eos % (Auto) % Baso % (Auto) % Neut # (Auto) (1.4-6.5) K/uL Lymph # (Auto) (1.2-3.4) K/uL [place] # (Auto) (0.11-0.59) K/uL Eos # (Auto) (0-0.5) K/uL Baso # (Auto) (0-0.2) K/uL Immature Gran # (Auto) (0.00-0.02) K/uL Neutrophils % (Manual) % Lymphocytes % (Manual) % Monocytes % (Manual) % Basophils % (Manual) % Myelocytes % (Man) % Neutrophils # (Manual) (1.4-6.5) K/uL Total Absolute Neuts (1.4-6.5) K/uL Lymphocytes # (Manual) (1.2-3.4) K/uL Total Abs Lymphocytes (1.2-3.4) K/uL Monocytes # (Manual) (0.11-0.59) K/uL Basophils # (Manual) (0-0.2) K/uL Myelocytes # (Manual) (0-0) K/uL Peripher Smr Path Cons Pending PT (9.0-12.0) Seconds INR (0.9-1.1) APTT (21.0-31.0) Seconds PTT Ratio Sodium 139 (136-145) mmol/L Potassium 4.3 (3.5-5.1) mmol/L Chloride 107 (98-107) mmol/L Carbon Dioxide 22 (21-32) mmol/L Anion Gap 10 (3-11) BUN 24 H (6-23) mg/dl Creatinine 1.00 (0.6-1.4) mg/dl Est Cr Clr Drug Dosing 84.1 ml/min Est GFR ( Amer) 86.2 ml/min Est GFR (Non-Af Amer) 74.3 ml/min BUN/Creatinine Ratio 24.0 H (10-20) Glucose 166 H (70-99(Fasting)) mg/dl Calcium 9.0 (8.5-10.1) mg/dl Magnesium 1.8 (1.7-2.4) mg/dl Iron (35-175) mcg/dl Transferrin (200-360) mg/dl Ferritin (8-388) ng/ml Total Bilirubin 0.8 (0.2-1.0) mg/dl AST 13 (13-39) U/L ALT 12 (7-52) U/L Alkaline Phosphatase 47 (34-104) U/L Troponin I High Sens (0-20) pg/ml Total Protein 7.2 (6.0-8.3) gm/dl Albumin 4.1 (3.4-5.0) gm/dl Globulin 3.1 (2.5-4.0) gm/dl Albumin/Globulin Ratio 1.3 (0.9-2) Vitamin B12 TSH 4.695 H (0.300-4.500) uIu/ml Free T4 0.74 (0.61-1.60) ng/dl Urine Color Urine Appearance (Clear) Urine pH (4.5-7.5) Ur Specific [place] (1.000-1.030) Urine Protein (Negative) Urine Glucose (UA) (Negative) Urine Ketones (Negative) Urine Blood (Negative) Urine Nitrite (Negative) Urine Bilirubin (Negative) Urine Urobilinogen (Negative) Ur Leukocyte Esterase (Negative) Urine WBC (Auto) (0-5) /hpf Urine RBC (Auto) (0-4) /hpf U Hyaline Cast (Auto) (0-5) /lpf U Epithel Cells (Auto) (0-5) /lpf Urine Bacteria (Auto) (Negative) Urine Crystals Calcium Oxalate Crystal (None Prsent) Urine Mucus (None Prsent) SARS-CoV-2, RNA, NAAT (NEGATIVE) 02/11/22 02/11/22 02/11/22 Range/Units 12:30 12:30 12:30 WBC 2.57 L (4.8-10.8) K/uL RBC 3.65 L (4.7-6.1) M/uL Hgb 10.6 L (14.0-18.0) g/dL Hct 33.4 L (42-52) % MCV 91.5 (80-100) fL MCH 29.0 (25-34) pg MCHC 31.7 L (32-36) g/dL RDW Std Deviation 48.8 H (36.4-46.3) fL RDW Coeff of Leonora 14.6 H (11.5-14.5) % Plt Count 161 (130-400) K/uL MPV 11.4 H (7.4-10.4) fL Immature Gran % (Auto) % Neut % (Auto) % Lymph % (Auto) % [place] % (Auto) % Eos % (Auto) % Baso % (Auto) % Neut # (Auto) (1.4-6.5) K/uL Lymph # (Auto) (1.2-3.4) K/uL [place] # (Auto) (0.11-0.59) K/uL Eos # (Auto) (0-0.5) K/uL Baso # (Auto) (0-0.2) K/uL Immature Gran # (Auto) (0.00-0.02) K/uL Neutrophils % (Manual) 42.5 % Lymphocytes % (Manual) 47.7 % Monocytes % (Manual) 8.0 % Basophils % (Manual) 0.9 % Myelocytes % (Man) 0.9 % Neutrophils # (Manual) 1.09 L (1.4-6.5) K/uL Total Absolute Neuts 1.09 L (1.4-6.5) K/uL Lymphocytes # (Manual) 1.23 (1.2-3.4) K/uL Total Abs Lymphocytes 1.23 (1.2-3.4) K/uL Monocytes # (Manual) 0.21 (0.11-0.59) K/uL Basophils # (Manual) 0.02 (0-0.2) K/uL Myelocytes # (Manual) 0.02 H (0-0) K/uL Peripher Smr Path Cons PT 11.4 (9.0-12.0) Seconds INR 1.1 (0.9-1.1) APTT 20.3 L (21.0-31.0) Seconds PTT Ratio 0.7 Sodium (136-145) mmol/L Potassium (3.5-5.1) mmol/L Chloride (98-107) mmol/L Carbon Dioxide (21-32) mmol/L Anion Gap (3-11) BUN (6-23) mg/dl Creatinine (0.6-1.4) mg/dl Est Cr Clr Drug Dosing ml/min Est GFR ( Amer) ml/min Est GFR (Non-Af Amer) ml/min BUN/Creatinine Ratio (10-20) Glucose (70-99(Fasting)) mg/dl Calcium (8.5-10.1) mg/dl Magnesium (1.7-2.4) mg/dl Iron (35-175) mcg/dl Transferrin (200-360) mg/dl Ferritin (8-388) ng/ml Total Bilirubin (0.2-1.0) mg/dl AST (13-39) U/L ALT (7-52) U/L Alkaline Phosphatase (34-104) U/L Troponin I High Sens 15.8 (0-20) pg/ml Total Protein (6.0-8.3) gm/dl Albumin (3.4-5.0) gm/dl Globulin (2.5-4.0) gm/dl Albumin/Globulin Ratio (0.9-2) Vitamin B12 TSH (0.300-4.500) uIu/ml Free T4 (0.61-1.60) ng/dl Urine Color Urine Appearance (Clear) Urine pH (4.5-7.5) Ur Specific [place] (1.000-1.030) Urine Protein (Negative) Urine Glucose (UA) (Negative) Urine Ketones (Negative) Urine Blood (Negative) Urine Nitrite (Negative) Urine Bilirubin (Negative) Urine Urobilinogen (Negative) Ur Leukocyte Esterase (Negative) Urine WBC (Auto) (0-5) /hpf Urine RBC (Auto) (0-4) /hpf U Hyaline Cast (Auto) (0-5) /lpf U Epithel Cells (Auto) (0-5) /lpf Urine Bacteria (Auto) (Negative) Urine Crystals Calcium Oxalate Crystal (None Prsent) Urine Mucus (None Prsent) SARS-CoV-2, RNA, NAAT (NEGATIVE) Diagnostic Findings Chest X-Ray 02/11/22 12:43 XR chest 1V portable HISTORY: 71 years-old Male syncope acute syncope COMPARISON: Chest radiograph 12/29/2021 TECHNIQUE: Portable AP view of the chest FINDINGS: The cardiomediastinal and hilar silhouettes are within normal limits. Atherosclerosis of the aorta. No pneumothorax, pleural effusion, airspace consolidation or overt pulmonary edema. Spondylitic spurring of the spine. IMPRESSION: No acute process. ACT 112: Negative or not required by law. The above report was generated using voice recognition software. It may contain grammatical, syntax or spelling errors. Electronically signed by: Edison Perez M.D. 02/11/2022 1:[address] 02/11/22 12:50 CT head/brain wo con CLINICAL HISTORY: 71 years-old Male with syncope. Acute syncope TECHNIQUE: Multiple axial CT images of the head were obtained without contrast. A dose lowering technique was utilized adhering to the principles of ALARA. CT DOSE: 614.27 mGy.cm COMPARISON: 04/28/2017 FINDINGS: No acute intracranial hemorrhage, midline shift, intracranial mass, hydrocephalus, territorial ischemia or abnormal extra-axial collection. Involutional changes. White matter hypodensities suggest chronic vascular ischemic disease. The calvarium is intact. The paranasal sinuses, mastoid air cells, and middle ear cavities are clear. IMPRESSION: No acute intracranial abnormality or calvarial fracture. ACT 112: Negative or not required by law. The above report was generated using voice recognition software. It may contain grammatical, syntax or spelling errors. Electronically signed by: Edison Perez M.D. 02/11/2022 2:50 PM PG Care Time/CCT Total # of Minutes Spent Total Time Spent with Patient: Total time spent is greater than 50% in coordination of care (as documented) at patient's floor/unit and/or counseling patient: Coding Level of Care Code 87482 Subseq Obs Care Lvl 3 Diagnoses Syncope R55 Syncope type: unspecified GERD (gastroesophageal reflux disease) K21.9 Hiatal hernia K44.9 Anemia D64.9 Neutropenia D70.9 Hyperlipidemia E78.5 BPH (benign prostatic hyperplasia) N40.0 Anxiety F41.9 (1) Syncope Syncope type: unspecified Qualified Code(s): R55 - Syncope and collapse
[2022-02-12] MEDS: PANTOprazole 40 MG TAB PO SCH (08:36)
[2022-02-12] MEDS: CITALOPRAM 40 MG TAB PO SCH (08:36)
[2022-02-12] MEDS: FINASTERIDE 5 MG TAB PO SCH (08:36)
--- NOTE | 2022-02-12 13:07 | XCELERA ---
[id number]
[2022-02-12] MEDS ORDERED: cefTRIAXone SODIUM 2,000 MG in DEXTROSE 5% 50 ML IV STA (13:16)
--- NOTE | 2022-02-12 13:59 | Electrocardiogram Report ---
Test Reason : Blood Pressure : / mmHG Vent. Rate : 059 BPM Atrial Rate : 059 BPM P-R Int : 200 ms QRS Dur : 096 ms QT Int : 518 ms P-R-T Axes : 070 -13 011 degrees QTc Int : 512 ms Poor data quality, interpretation may be adversely affected Sinus bradycardia Otherwise normal ECG When compared with ECG of 10-DEC-2019 14:43, Premature atrial complexes are no longer Present Confirmed by Vincent Hollins ([id number]) on 02/12/2022 1:59:02 PM Referred By: REFERRED SELF Confirmed By:Eliud Hollins
--- NOTE | 2022-02-12 14:14 | Electrocardiogram Report ---
Test Reason : Blood Pressure : / mmHG Vent. Rate : 052 BPM Atrial Rate : 052 BPM P-R Int : 186 ms QRS Dur : 092 ms QT Int : 500 ms P-R-T Axes : -18 -26 000 degrees QTc Int : 465 ms Sinus bradycardia Otherwise normal ECG When compared with ECG of 11-FEB-2022 12:29, (unconfirmed) No significant change was found Confirmed by Vincent Hollins ([id number]) on 02/12/2022 2:13:21 PM Referred By: REFERRED SELF Confirmed By:Eliud Hollins
[2022-02-12 15:19] LABS: Folate (Folic Acid) 8.99 ng/ml (>5.38)
[2022-02-12] MEDS: MELATONIN 3 MG TAB PO SCH (20:05)
[2022-02-12] MEDS: SIMVASTATIN 20 MG TAB PO SCH (20:05)
[2022-02-13] MEDS: SODIUM CHLORIDE 0.9% 1000ML 1,000 ML IV SCH ×2 (00:21→08:50)
[2022-02-13] MEDS: PANTOprazole 40 MG TAB PO SCH (08:20)
[2022-02-13] MEDS: CITALOPRAM 40 MG TAB PO SCH (08:20)
[2022-02-13] MEDS: FINASTERIDE 5 MG TAB PO SCH (08:20)
[2022-02-13] MEDS ORDERED: CLOPIDOGREL BISULFATE 75 MG TAB PO SCH (09:00)
[2022-02-13] MEDS ORDERED: SODIUM CHLORIDE 0.65% NA SOLN 45 ML (OCEAN) PRN (11:19)
[2022-02-13] MEDS ORDERED: DOXYCYCLINE HYCLATE 100 MG in DEXTROSE 5% 100 ML IV SCH (11:30)
[2022-02-13] MEDS ORDERED: IRON SUCROSE 300 MG in SODIUM CHLORIDE 0.9% 250 ML IV ONE (11:45)
[2022-02-13 12:37] LABS: Basophils # (auto) 0.01 K/uL (0-0.2); Basophils % (auto) 0.3 %; Hematocrit (blood only) 33.5 % (42-52); Hemoglobin 10.5 g/dL (14.0-18.0); Immature Granulocytes # (auto) 0.04 K/uL (0.00-0.02); Immature Granulocytes % (auto) 1.2 %; Lymphocytes % (auto) 46.9 %; Mean Corpuscular Hgb Conc 31.3 g/dL (32-36); Mean Corpuscular Volume 92.5 fL (80-100); Monocytes # (auto) 0.75 K/uL (0.11-0.59); Neutrophils # (auto) 1.01 K/uL (1.4-6.5); Neutrophils % (auto) 29.6 %; Platelet Count 175 K/uL (130-400); RDW Coefficient of Variation 14.7 % (11.5-14.5); RDW Standard Deviation 50.4 fL (36.4-46.3); Red Blood Count 3.62 M/uL (4.7-6.1); White Blood Count 3.41 K/uL (4.8-10.8)
[2022-02-13 13:20] LABS: Albumin Globulin Ratio 1.3 (0.9-2); BUN Creatinine Ratio 15.3 (10-20); Bilirubin,Total 0.6 mg/dl (0.2-1.0); Calcium 8.8 mg/dl (8.5-10.1); Creatinine Clr Calc Pharmacy 83.6 ml/min; Est GFR (African American) 88.3 ml/min; Est GFR (Non-African American) 76.2 ml/min; Globulin 3.2 gm/dl (2.5-4.0); Total Protein 7.2 gm/dl (6.0-8.3)
--- NOTE | 2022-02-13 14:19 | Electrocardiogram Report ---
Test Reason : Blood Pressure : / mmHG Vent. Rate : 052 BPM Atrial Rate : 052 BPM P-R Int : 184 ms QRS Dur : 096 ms QT Int : 500 ms P-R-T Axes : -02 -22 012 degrees QTc Int : 465 ms Sinus bradycardia with Premature atrial complexes in a pattern of bigeminy Otherwise normal ECG When compared with ECG of 12-FEB-2022 06:49, Premature atrial complexes are now Present Confirmed by Vincent Hollins ([id number] on 02/13/2022 2:19:05 PM Referred By: REFERRED SELF Confirmed By:Eliud Hollins
--- NOTE | 2022-02-13 17:34 | Discharge Summary ---
Date of Service February 13, 2022 Admission HPI Per Admitting Provider 71-year-old male with a past medical history of hyperlipidemia, remote history of CVA/TIA?, 2 recent prostate surgeries and recent history of hematuria brought to the ER today for symptoms of presyncope. History taken from patient and his together. states that he has had been having increasing episodes of being dizzy and "falling up the stairs". Patient states that he has had a couple of episodes of dizziness with turning his head or changing positions from sitting to standing or laying to sitting. This morning he attests to having had some dry heaving but denies any actual emesis. He denies any diarrhea and has some mild nausea. He says that he did have some feelings of dizziness prior to being presyncopal and slowly easing himself down onto the ground in his kitchen. He did not fall or hit his head or lose consciousness. He says the dizziness has been happening more frequently but has not passed out recently. He denies any chest pain, chest tightness. He does attest to having random episodes of shortness of breath while at rest that are accompanied by sweats. He denies any history of heart attack or coronary artery disease. He denies any fevers, chills, night sweats. Separately his is somewhat concerned about his memory. She states that he has been forgetting more things recently. She gives examples of him forgetting how to turn on the front burner of the stove they have had for years as well as forgetting short-term things like conversations that just occurred. He notes that he has also had a new tremor appear in his right arm. He says this does not happen on a reliable pattern. He has had intermittent shooting tingling and numbness down his right arm but never the left. He denies any weakness or difficulty with rawhide trimmer strength in the affected arm. He states his strength in his right leg is also weaker than his left leg. Principal Diagnosis BPPV, Anemia, UTI Discharge Exam Constitutional WD/WN, vitals as above Eyes PERRL, conjunctivae normal, anicteric sclerae Neck trachea midline, no thyromegaly Respiratory normal respiratory effort, lungs clear to auscultation Cardiovascular RRR, no murmur, no edema Chest (Breasts) Chest: normal inspection of chest Gastrointestinal (Abdomen) normal bowel sounds, soft, nontender, no hepatosplenomegaly Musculoskeletal Extremities: extremities normal to inspection; no cyanosis and no clubbing Skin no rashes, warm and dry Neurologic moves all extremities and awake; no focal motor deficits Psychiatric A+Ox3, euthymic affect Lymphatic no lymphedema Discharge Data Allergies Allergy/AdvReac Type Severity Reaction Status Date / Time No Known Allergies Allergy nkda Verified 02/11/22 16:01 Consultations 02/11/22 15:32 ED Decision to Admit Stat Ordered Studies 02/11/22 12:50 CT head/brain wo con Stat ECHO Hospital Course (1) Dizziness: 71 yo M with recent extensive urologic history, HLD, GERD, CVA (off plavix due to hematuria) who presented to the ER for dizziness Orthostatics were negative. ANemia from recent hematuria may be contributing to some of his fatigue. But clearly his symptoms are dizziness with turning his head to the right and are now resolved with meclizine and PT exercises, likely 2/2 BPPV EKG with sinus arminda, denied any prodrome CT of head negative, no need for MRI as symptoms resolved With UTI as below but not likely related ECHO normal, no events on tele except sinus arminda PT/OT evals appreciated-->did well, ok to return home -give meclizine prn vertigo and Zofran prn nausea (2) Anemia: --Acute on chronic. No NSAID use/melena/BRBPR reported --> Iron studies c/w RONDA, and venofer given x 2 doses of 300mg each while here Likely 2/2 recent hematuria hgb up t10.6 on day of discharge TSH elevated, but Ft4 wnl, not on any thyroid replacement therapy B12/Folate normal -start ferrous sulfate 325mg po bid with docusate on discharge f/u CBC in 2 weeks w/ PCP hematuria now resolved-ok to resume Plavix (3) UTI (urinary tract infection): UA abnormal and did just have a prostate surgery x 2, has been feeling fatigued, dizzy, no fevers or abd pain could be secondary to infection Ur cx growing Coag neg Staph start doxycycline 100mg po bid x 10 days (4) Neutropenia: leukopenia seems pretty chronic for him, ANC 1000 peripheral smear shows no blasts or other significant abnormalities normocytic normochromic, with anemia as above (5) Hyperlipidemia: * continue statin Sleep Apnea: * Bipap QHS (6) BPH (benign prostatic hyperplasia): continue finasteride now s/p TURP (7) Anxiety: continue celexa (8) GERD (gastroesophageal reflux disease): continue omeprazole (9) Finger laceration: --> Reported cutting 3rd finger cutting potatoes on mandolin over the weekend. He reported some purulent drainage/pimple, drained himself. No further drainage on exam/erythema --> Cleanse/cover. Monitor for any signs/sx of issues. NVI, no need for imaging at this time but consider if worsens/consultation with ortho but appears superficial, but is over the joint Dispo-stable for dc to home Total Time Total Time Spent Total Time Spent (In Minutes): 35 min Discharge Plan Discharge Items Patient Disposition: Home - Self-Care Reason For Visit: Dizziness Discharge Diagnosis: Vertigo, Anemia Condition on Discharge: Good Activity: As commented below Lifting: Gradually increase as tolerated Bathing: No limitations Exercise/Sports: Gradually increase as tolerated Non-emergency contact: Primary Care Provider Call non-emergency contact if: you have any medication questions and your symptoms worsen Follow-up/Referrals: Vamshi Red PA-C [Primary Care Provider] - (Follow up within 1 week.) Diet: Regular Addtl Attending Provider Instructions: You were admitted for dizziness which is likely from vertigo. You were also found to be anemic and iron deficient which is also contributing to your fatigue. You also had a UTI. Please finish out the antibiotics for the UTI for 9 more days. You received IV iron and now should continue on iron pills along with a stool softener. Have your blood count checked again in a few weeks. You can take meclizine as needed for dizziness and Zofran for nausea. Pending Studies at Discharge: Yes (Blood cultures-no growth to date) Stand-Alone Forms: My [facility] [employer], Smoking Cessation Medications and DC Order Prescriptions: New meclizine 12.5 mg Tablet 12.5 mg PO TID PRN (Reason: dizziness) Qty: 10 RF: 0 doxycycline hyclate 100 mg tablet 100 mg PO BID Qty: 19 RF: 0 ferrous sulfate 325 mg (65 mg iron) tablet 325 mg PO DAILY Qty: 30 RF: 0 docusate sodium 100 mg capsule 100 mg PO BID Qty: 60 RF: 0 ondansetron 4 mg tablet,disintegrating 4 mg PO Q8H PRN (Reason: nausea and vomiting) 3 Days Qty: 9 RF: 0 Continued finasteride [Proscar] 5 mg tablet 5 mg PO DAILY Qty: 90 RF: 3 simvastatin 20 mg tablet 20 mg PO QPM RF: 0 omeprazole 20 mg capsule,delayed release(DR/EC) 20 mg PO QAM RF: 0 citalopram 40 mg tablet 40 mg PO DAILY RF: 0 melatonin 5 mg Tablet 5 mg PO HS RF: 0 clopidogrel 75 mg tablet 75 mg PO .ON HOLD RF: 0 cholecalciferol (vitamin D3) 25 mcg (1,000 unit) tablet 50 mcg PO TID RF: 0 Oren Mag Zinc Plus D3 333 mg-133 unit -133 mg-5 mg Tablet 1 tab PO DAILY RF: 0 Discharge Orders: Discharge Order (Routine); Ordered 02/13/22 Ordered By: Suzy Solo Admission Data Admit Date/Time: 02/11/22 16:36 Attending Provider: Suzy Solo Admit Provider: Linh Willis Primary Care Provider: Vamshi Red Other Providers: Reuben Gonzalez Coding Level of Care Code 48049 OBS Care - Discharge Diagnoses GERD (gastroesophageal reflux disease) K21.9 Anemia D64.9 Neutropenia D70.9 Hyperlipidemia E78.5 BPH (benign prostatic hyperplasia) N40.0 Anxiety F41.9 UTI (urinary tract infection) N39.0 Finger laceration S61.219A Dizziness R42
== END 2022-02-13 18:10 | disposition home or self-care (01) ==
LOC: ED 12:17 → 2W 12:17 → SUATTDRO 16:36 → 2W 18:04

== ENCOUNTER 2024-04-10 05:32 | Observation (INO) ==
--- NOTE | 2024-04-06 10:14 | Anesthesiology Consultation ---
Date of Service April 06, 2024 Assessment & Plan (1) Encounter for pre-operative examination: - to anesthesiologist discretion if coags are needed DOS. - medical clearance 04/02/24: "...no culture and screen required. BMP and CBC collected 04/02/2024 and pending...Willis perioperative risk 0.1%...postoperative respiratory failure risk: 0.4% risk of mechanical ventilation for > 48 hrs post op...Mallampati score: class 3, possible difficult intubation...moderate medical risk for moderate risk surgery. Cleared from medical standpoint..." - Per collection systems foreman on 03/27/24: No known infectious disease contacts, current infectious disease symptoms in past 10 days or COVID positive test result in the past 30 days. Chart Review Chart Review: Acceptable Risk for Surgery and Patient NOT seen in Pre Admission Testing History Surgery Operation Date: 04/10/24 07:45 Proposed Procedures p C5-C7 Anterior Cervical Discectomy and Fusion - Wood Cortes DO Height/Weight Height: 5 ft 11 in Weight: 104.326 kg Allergies Allergy/AdvReac Type Severity Reaction Status Date / Time No Known Allergies Allergy nkda Verified 03/27/24 09:09 Medications Home Medications Medication Instructions Recorded Confirmed Last Taken omeprazole 20 mg capsule,delayed 20 mg PO QAM 09/15/19 03/27/24 02/19/23 08:00 release simvastatin 20 mg tablet 20 mg PO QPM 09/15/19 03/27/24 02/18/23 cholecalciferol (vitamin D3) 25 50 mcg PO DAILY 01/09/22 03/27/24 02/19/23 08:00 mcg (1,000 unit) tablet finasteride 5 mg tablet (Proscar) 5 mg PO DAILY #90 tabs 01/26/22 03/27/24 02/19/23 08:00 ferrous sulfate 325 mg (65 mg 325 mg PO DAILY #30 tabs 02/13/22 03/27/24 02/19/23 08:00 iron) tablet aspirin 81 mg capsule 81 mg PO DAILY 03/27/24 03/27/24 Unknown diclofenac sodium 1 % topical gel 2 g topical BID 03/27/24 03/27/24 Unknown fluticasone propionate 50 1 spray intranasal DAILY 03/27/24 03/27/24 Unknown mcg/actuation nasal spray,suspension latanoprost 0.005 % eye drops 1 drp ophthalmic (eye) BID 03/27/24 03/27/24 Unknown sertraline 100 mg tablet 100 mg PO QAM 03/27/24 03/27/24 Unknown Past Medical History Medical History (Updated 04/06/24 @ 10:56 by Marisol Kraft PA-C) Stroke (~2015) Hyperlipidemia Anxiety History of colon polyps Hiatal hernia s/p sx Seasonal allergies Glaucoma History of anemia hx iron infusions; no known current issues Gilbert syndrome no issues, 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 Tremor right hand Obesity GERD (gastroesophageal reflux disease) Post traumatic stress disorder Sleep apnea BIPAP Past Family History Family History Sister Cancer bone marrow Mother Heart disease Other No family history of adverse response to anesthesia Past Surgical History Surgical History History of open reduction and internal fixation (ORIF) procedure left ankle Status post laparoscopic fundoplication H/O removal of cyst History of colonoscopy History of esophagogastroduodenoscopy (EGD) Hx of inguinal hernia repair right History of total right knee replacement (TKR) History of total left hip replacement History of transurethral resection of prostate X 2 Hx of appendectomy Social History Smoking Status: Never smoker Do You Dip or Chew Tobacco: No Hx Alcohol Use: Yes Alcohol type: beer alcohol intake frequency: holidays/special occasions only Hx Substance Use: No substance use type: does not use Lab Results Anesthesia Preop Results Results Anesthesia Widget: WBC 4.60 K/ul (4.8-10.8) L 04/06/24 Hgb 13.9 g/dl (14.0-18.0) L 04/06/24 Hct 42.3 % (42.0-52.0) 04/06/24 Plt 149 K/uL (130-400) 04/06/24 Na 137 mmol/L (136-145) 04/06/24 K 4.2 mmol/L (3.5-5.1) 04/06/24 Cl 104 mmol/L (98-107) 04/06/24 CO2 26 mmol/L (21-32) 04/06/24 BUN 23 mg/dl (6-23) 04/06/24 Creat 1.11 mg/dl (0.6-1.4) 04/06/24 Glucose Level 149 mg/dl (70-99(Fasting)) H 04/06/24 Urine Color Yellow 04/06/24 Urine Appearance Clear (Clear) 04/06/24 Urine pH 5.0 (4.5-7.5) 04/06/24 Urine Specific [place] 1.017 (1.000-1.030) 04/06/24 Urine Protein Negative (Negative) 04/06/24 Urine Glucose (UA) Negative (Negative) 04/06/24 Urine Ketones Negative (Negative) 04/06/24 Urine Blood Negative (Negative) 04/06/24 Urine Nitrite Negative (Negative) 04/06/24 Urine Bilirubin Negative (Negative) 04/06/24 Urine Urobilinogen Negative (Negative) 04/06/24 Urine Leukocyte Esterase Negative (Negative) 04/06/24 Blood Type A Positive 04/06/24 Antibody Screen NEGATIVE 04/06/24 Testing Electrocardiogram Date: 04/02/24 Sinus bradycardia with PACs, rate 54 bpm Left axis deviation Chest X-Ray Date: 03/11/24 No evidence of acute pathology. Echocardiogram Date: 02/12/22 EF 50-55% Normal LV wall motion Grade I diastolic dysfunction Mildly dilated LA Mild mitral regurgitation Mild aortic root dilatation Other Testing Head and neck CTA 02/19/23 1. No significant stenosis, occlusion, or aneurysm within the [place]. 2. No significant stenosis, occlusion, or dissection identified within the carotid or vertebral arteries. 3. A 1.6 cm nodule inferior to the left thyroid lobe. This favors an exophytic thyroid nodule.
[2024-04-10] MEDS ORDERED: fentaNYL citrate PF 100 MCG/2 ML VIAL ONE (06:23)
[2024-04-10] MEDS ORDERED: MIDAZOLAM HCL 1 MG/ML 2ML VIAL ONE (06:23)
[2024-04-10] MEDS ORDERED: LIDOCAINE 2% 2 ML VIAL/AMP(20MG/ML) INFIL ONE (06:24)
[2024-04-10] MEDS ORDERED: KETAMINE HCL 10MG/ML SYR ONE (06:24)
[2024-04-10] MEDS ORDERED: ROCURONIUM BROMIDE 10 MG/ML 5 ML VIAL IV ONE ×2 (06:27→08:24)
[2024-04-10] MEDS: ACETAMINOPHEN 500 MG TAB PO SCH (06:38)
[2024-04-10] MEDS: CeleBREX 200 MG CAP PO SCH (06:38)
[2024-04-10] MEDS: GABAPENTIN 300 MG CAP PO SCH (06:38)
[2024-04-10] MEDS: LR 60ML/HR IV SCH (06:39)
[2024-04-10] MEDS: LR 15ML/HR IV SCH (06:39)
[2024-04-10] MEDS ORDERED: DexMEDEtomidine HCL IV 100 MCG/ML VIAL IV ONE (06:53)
--- NOTE | 2024-04-10 07:40 | History & Physical Bridge Note ---
Date of Service April 10, 2024 History & Physical Bridge Note I have examined the patient, reviewed the History & Physical and in the interval since the performance of the History & Physical I have noted the following changes of clinical significance: no changes noted
--- NOTE | 2024-04-10 07:41 | History & Physical Report ---
Date of Service April 10, 2024 Assessment & Plan (1) Cervical stenosis of spinal canal: Plan: C5-C7 anterior cervical discectomy and fusion History of Present Illness Chief Complaint: Neck and arm pain Primary Care Provider: Vamshi Red PA-C This is a 73-year-old male presents with chronic persistent neck and arm pain and failing course of nonoperative care is here for surgical invention. Allergies Allergy/AdvReac Type Severity Reaction Status Date / Time No Known Allergies Allergy nkda Verified 04/10/24 06:23 Home Medications Medication Instructions Recorded Confirmed Type omeprazole 20 mg capsule,delayed 20 mg PO QAM 09/15/19 04/10/24 History release simvastatin 20 mg tablet (Zocor) 20 mg PO QPM 09/15/19 04/10/24 History cholecalciferol (vitamin D3) 25 50 mcg PO DAILY 01/09/22 04/10/24 History mcg (1,000 unit) tablet finasteride 5 mg tablet (Proscar) 5 mg PO DAILY #90 tabs 01/26/22 04/10/24 Rx ferrous sulfate 325 mg (65 mg 325 mg PO DAILY #30 tabs 02/13/22 04/10/24 Rx iron) tablet aspirin 81 mg capsule 81 mg PO DAILY 03/27/24 04/10/24 History diclofenac sodium 1 % topical gel 2 g topical BID 03/27/24 04/10/24 History (Voltaren Arthritis Pain) fluticasone propionate 50 1 spray intranasal DAILY 03/27/24 04/10/24 History mcg/actuation nasal spray,suspension latanoprost 0.005 % eye drops 1 drp ophthalmic (eye) BID 03/27/24 04/10/24 History (Xalatan) sertraline 100 mg tablet (Zoloft) 100 mg PO DAILY 03/27/24 04/10/24 History Past Med/Surg History Problem List (Updated 04/10/24 @ 07:41 by Wood Cortes DO) Cervical stenosis of spinal canal Encounter for pre-operative examination Dizziness Finger laceration UTI (urinary tract infection) Neutropenia Anemia Lab test negative for COVID-19 virus (Acute) detention (current) use of antithrombotics/antiplatelets (Acute) GERD (gastroesophageal reflux disease) Hiatal hernia BPH (benign prostatic hyperplasia) (Chronic) s/p TURP Anxiety (Chronic) Hyperlipidemia (Chronic) Rectal bleeding (Acute) Low back pain radiating to right leg (Acute) Constipation (Acute) Medical History (Updated 04/10/24 @ 07:41 by Wood Cortes DO) Stroke (~2016) Hyperlipidemia Anxiety History of colon polyps Hiatal hernia s/p sx Seasonal allergies Glaucoma History of anemia hx iron infusions; no known current issues Gilbert syndrome no issues, 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 Tremor right hand Obesity GERD (gastroesophageal reflux disease) Post traumatic stress disorder Sleep apnea BIPAP Surgical History History of open reduction and internal fixation (ORIF) procedure left ankle Status post laparoscopic fundoplication H/O removal of cyst History of colonoscopy History of esophagogastroduodenoscopy (EGD) Hx of inguinal hernia repair right History of total right knee replacement (TKR) History of total left hip replacement History of transurethral resection of prostate X 2 Hx of appendectomy Family History Sister Cancer bone marrow Mother Heart disease Other No family history of adverse response to anesthesia Social History Smoking Status: Never smoker Second Hand Exposure: No; Do You Dip or Chew Tobacco: No; Tobacco Cessation Education Requested by Patient: No Hx Alcohol Use: Yes Alcohol type: beer Hx Substance Use: No Preferred Language: Peruvian Communication Ability: Effective 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 Beliefs That Will Affect Care: None marital status: Current Living Situation: Spouse current occupational status: retired Other Information That Helps Us Care for You: No Feels Safe at Home: Yes Safety Concerns: Feels Safe At This Time Assistive Devices: BiPap, Denture - Upper, Denture - Lower, Glasses, Hearing Aid - Bilateral and Walker Assistive Devices Comment: walker prn Physical Exam Physical Exam: Patient is alert and oriented heart regular rhythm Lungs clear Results & Data Results & Data Vital Signs (Past 12 Hours) Vital Signs Temp Pulse Resp BP Pulse Ox O2 Del Method 04/10/24 06:28 36.9 C 53 L 18 151/77 H 97 Room Air
[2024-04-10] MEDS ORDERED: LABETALOL HCL IV 5 MG/ML 20ML IV PRN (07:44)
[2024-04-10] MEDS ORDERED: ATROPINE SULFATE 0.1 MG/ML 10ML SYR IV PRN (07:44)
[2024-04-10] MEDS ORDERED: ONDANSETRON INJ 2 MG/ML 2 ML VIAL IV PRN ×2 (07:44→11:32)
[2024-04-10] MEDS ORDERED: HYDROmorphone INJ 1 MG/ML SYRINGE IV PRN ×2 (07:44→11:32)
[2024-04-10] MEDS ORDERED: PROMETHAZINE HCL 6.25 MG in SODIUM CHLORIDE 0.9% 50 ML IV PRN (07:44)
[2024-04-10] MEDS ORDERED: FLUMAZENIL 0.1 MG/1 ML 10 ML VIAL IV PRN (07:44)
[2024-04-10] MEDS ORDERED: NALOXONE HCL 0.4 MG/1 ML VIAL/CARP IV PRN ×2 (07:44→11:32)
[2024-04-10] MEDS ORDERED: ePHEDrine sulfate 50 MG/ML AMP IV PRN (07:44)
[2024-04-10] MEDS: ceFAZolin 2000MG 2,000 MG/15 ML SYR IV SCH ×2 (07:50→16:07)
[2024-04-10] MEDS ORDERED: ePHEDrine sulfate 50 MG/5 ML SYR ONE (08:16)
[2024-04-10] MEDS ORDERED: DEXAMETHASONE SOD INJ 4 MG/ML VIAL ONE (08:24)
[2024-04-10] MEDS ORDERED: SUGAMMADEX SODIUM 200 MG/2 ML VIAL IV ONE (08:58)
--- NOTE | 2024-04-10 09:16 | Operative Report ---
Post Operative Report Pre & Post Diagnosis Operation Date: 04/10/24 07:45 Pre-Op Diagnosis: Cervical Stenosis of Spinal Canal C5-C7 Cervical radiculopathy Post-Op Diagnosis: Same I identified the patient and participated in the time-out.: Yes Procedure Operation Date: 04/10/24 07:45 Actual Procedures #1 anterior cervical discectomy with bilateral foraminotomies C5-C6 C6-C7. #2 anterior cervical arthrodesis C5-C6 C6-C7. #3 placement of Spira 7 mm cage filled with catalyst bone graft at C5-C6 C6-C7. #4 application of K2 M plate and screws from C5-C7. Surgeon Wood Cortes, DO Waterproof Bag Sewer Vamshi Sanchez Estimated Blood Loss 10 Findings See Below The patient is 5 foot 11 weighing over 104 kg with a BMI of 32. Patient body habitus did create significant technical difficulty with positioning exposure and the procedure itself. This at least 50% increased operative time. Specimens None Indications This is a 73-year-old male presents above-mentioned diagnosis of failed course of nonoperative care is here for surgical invention. Description of Procedure Patient was met with identified informed consent obtained. Patient was then taken to the operative suite underwent ablation placed in supine position on the Maik table with the head Umana headline writer. All bony promises well-padded eyes inspected to ensure no external pressure placed upon the. With the assistance of fluoroscopy identified the C6 vertebral body and a transverse in cision was placed along the right anterior aspect of the cervical spine overlying this region. Blunt dissection with assistance of bipolar Cardizem form down to and exposing the anterior cervical spine from C5-C7. A sterile return tractors placed. Then performed a complete discectomy of C5-C6 out to the uncovertebral joints bilaterally. [place] distracting pins utilized to assist in visualization. Removed all posterior annular fibers longitudinal ligament bilateral foraminotomies were performed. Endplates burred to subcortical bleeding bone and a 7 mm spiral cage filled with callus bone graft tapped in position. Then proceeded to C6-C7. A complete discectomy performed out to the uncovertebral was bilaterally. [place] distracting pins again utilized. Removed all posterior annular fibers longitudinal ligament bilateral foraminotomies performed. Endplates burred to subcortical bleeding bone and a 7 mm spiral cage filled with callus bone graft tapped in position. Distracting and pressors removed all anterior osteophytes burred to a smooth cortical surface and a K2 M plate and screws applied with the assistance of fluoroscopy. The incision was then copiously irrigated explored to ensure no damage to surrounding structures remaining bleeding. 10 round NICOLE drain inserted. The incision was then closed with 2 Vicryl in the fascia and 4 Monocryl for final closure. Steri-Strips sterile dressing placed. Patient waken taken PACU stable condition. Please note monitoring was utilized at the procedure no changes noted. Erica Sanchez was present at the entire surgeon while the patient positioning complex portion of the surgery and possible closure. I attest to the content of the Intraoperative Record and any orders documented therein. Any exceptions are noted below.
[2024-04-10] MEDS: ceFAZolin 330 MG/ML 1 GM VIAL ONE (09:27)
--- NOTE | 2024-04-10 09:50 | Fluoroscopy Report ---
INTRAOPERATIVE RADIOGRAPHS CLINICAL HISTORY: C5-C7 spinal fusion. Fluoro time: 14 seconds Ka,r: 8.28 mGy FINDINGS: 3 spot fluoroscopic views of the cervical spine are presented. There has been discectomy at C5-C6 and C6-C7 with anterior spinal fusion at C5-C7. The orthopedic hardware appears intact. An end otracheal tube is in place. IMPRESSION: Intraoperative images from cervical spinal fusion surgery as above. Electronically signed by: Darvin Ba M.D. 04/10/2024 9:48 AM
[2024-04-10] MEDS: FLOSEAL HEMOSTATIC MATRIX 10ML TOP ONE (10:29)
[2024-04-10] MEDS: fentaNYL citrate PF 100 MCG/2 ML VIAL IV PRN (10:45)
--- NOTE | 2024-04-10 10:53 | Anesthesiology Progress Note ---
Date of Service April 10, 2024 Anesthesia Post Procedure Vital Signs Vital Signs: Temp Pulse Pulse Resp BP Pulse Ox O2 Del Method 04/10/24 10:40 70 10 L 163/89 H 95 Nasal Cannula 04/10/24 10:30 72 10 L 143/90 H 94 Room Air 04/10/24 10:20 66 14 165/87 H 95 Oxymask 04/10/24 10:10 66 15 157/85 H 95 Oxymask 04/10/24 10:00 70 12 171/86 H 97 Oxymask 04/10/24 09:50 69 13 167/82 H 97 Oxymask 04/10/24 09:40 74 14 167/94 H 97 Oxymask 04/10/24 09:32 36.0 C L 66 12 155/90 H 99 Oxymask 04/10/24 06:28 36.9 C 53 L 18 151/77 H 97 Room Air O2 Flow Rate 04/10/24 10:40 2 04/10/24 10:30 0 04/10/24 10:20 4 04/10/24 10:10 4 04/10/24 10:00 9 04/10/24 09:50 9 04/10/24 09:40 9 04/10/24 09:32 9 04/10/24 06:28 Pain Intensity Shoulder: Pain Intensity: 10 Transfer of Care Handoff Completed per policy Notes Mental Status: alert / awake / arousable Patient Amnestic to Procedure: Yes Nausea / Vomiting: adequately controlled Pain: adequately controlled Airway Patency, RR, SpO2: stable & adequate BP & HR: stable & adequate Hydration State: stable & adequate Anesthetic Complications: no major complications apparent
[2024-04-10] MEDS ORDERED: DO NOT ADMINISTER PNEUMOCOCCAL VACCINE PRN (11:32)
[2024-04-10] MEDS ORDERED: ACETAMINOPHEN 1,000 MG/100 ML VIAL IV PRN (11:32)
[2024-04-10] MEDS ORDERED: FAMOTIDINE 20 MG TAB PO PRN (11:32)
[2024-04-10] MEDS ORDERED: diphenhydrAMINE Capsule 25 MG CAP PO PRN (11:32)
[2024-04-10] MEDS ORDERED: bisacodyL 10 MG SUPP PR PRN (11:32)
[2024-04-10] MEDS ORDERED: SOD PHOSPHATE/SOD BIPHOSPHATE ENEMA 132 ML BTL PR PRN (11:32)
[2024-04-10] MEDS ORDERED: LORazepam 0.5 MG TAB PO PRN (11:32)
[2024-04-10] MEDS ORDERED: ONDANSETRON 4 MG OD TAB PO PRN (11:32)
[2024-04-10] MEDS ORDERED: dexAMETHasone 8 MG in SYRINGE 0 ML IV PRN (11:32)
[2024-04-10] MEDS ORDERED: MAGNESIUM HYDROXIDE SUSP 30 ML UDC PO PRN (11:32)
[2024-04-10] MEDS ORDERED: LORazepam 0.5 MG in SYRINGE 0.25 ML IV PRN (11:32)
[2024-04-10] MEDS ORDERED: RACEPINEPHRINE 2.25% NEBU SOLN 0.5 ML VIAL INH PRN (11:32)
[2024-04-10] MEDS ORDERED: METOCLOPRAMIDE HCL INJ 5 MG/ML 2 ML VIAL IV PRN (11:32)
[2024-04-10] MEDS ORDERED: DO NOT ADMINISTER FLU VACCINE PRN (11:32)
[2024-04-10] MEDS ORDERED: hydrOXYzine HCl 25 MG TAB PO PRN (11:32)
[2024-04-10] MEDS ORDERED: PROMETHAZINE HCL 12.5 MG in SODIUM CHLORIDE 0.9% 50 ML IV PRN (11:32)
[2024-04-10] MEDS: HYDROmorphone INJ 0.5 MG/0.5 ML SYR IV PRN (12:15)
--- NOTE | 2024-04-10 12:43 | Hospitalist Consultation ---
Date of Consultation April 10, 2024 Assessment & Plan (1) Status post cervical spinal fusion: Patient is currently stable, nontoxic-appearing, and asymptomatic after his C5-C7 cervical discectomy and fusion with Dr. Cortes today Patient is currently postop day #0 Pain control, IV fluids, DVT prophylaxis, and perioperative antibiotics per the primary team Will add a.m. CBC and BMP, we will follow-up Activity level per the primary team Message sent to primary team to clarify if they are comfortable with patient using his at bedtime CPAP/BiPAP tonight with his recent procedure and cervical collar in place, will hold at bedtime order for now until we get clarification Please reach out with any questions or concerns Medicine will continue to follow at this time (2) BPH (benign prostatic hyperplasia): Continue finasteride (3) Anxiety: Continue sertraline (4) Sleep apnea: Will hold at bedtime CPAP/BiPAP order for now until we get clarification from primary team regarding patient's ability to use at this time (5) GERD (gastroesophageal reflux disease): Continue PPI Plan Patient was discussed with Dr. Almeida at the time of admission Supervising Physician Co-Signing Physician Notes I personally saw and examined the patient. I verified all laughlin points and agree with Dontrell Torres PA-C with the following exceptions and/or additions: 73 year old male POD#0 anterior cervical discectomy with bilateral foraminotomies C5-C6 C6-C7. EBL. 10ml. Mild heartburn - did not take pantoprazole today. O/E HS RRR, no murmurs, Chest CTAB, Abdo SNT A/P VTE / Pain / Bowel regimen per primary ortho spine team Continue his routine medications as above Heartburn - give pantoprazole now, then switch omeprazole to pantoprazole daily per hospital formulary History of Present Illness Reason for Consultation: Postoperative medical management Requesting Physician: Wood Cortes DO Attending Physician: Dr. Darrell Almeida History of Present Illness Efra is a 73-year-old male with a past medical history significant for BPH, hyperlipidemia, previous CVA, anxiety, and anemia who presented to the [facility] [place] on 04/10/2024 for scheduled C5-C7 anterior cervical discectomy and fusion with Dr. Cortes. Per the operative report, EBL was listed as 10, anesthesia was not listed, and there were no reported Intra Operative complications. We were consulted for postoperative medical management. Patient was sitting in bed in no acute distress at the time of exam, c-collar is currently in place. Patient denies any complaints at this time besides being hungry. Denies new/worsening neck pain and/or new paresthesias since his procedure. No recent fever, chills, chest pain, shortness of breath, abdominal pain, nausea/vomiting, dysuria/hematuria, diarrhea, melena, and recent trauma. He brought his at bedtime CPAP/BiPAP with him, I explained that I will need to clarify with the primary team if they are comfortable with him using this tonight with his recent cervical surgery. He did not have any of his home medications prior to arrival today. Please refer to Dr. Almeida's attestation for any changes to the treatment plan Allergies Allergy/AdvReac Type Severity Reaction Status Date / Time No Known Allergies Allergy nkda Verified 04/10/24 06:23 Home Medications Medication Instructions Recorded Confirmed Type omeprazole 20 mg capsule,delayed 20 mg PO QAM 09/15/19 04/10/24 History release simvastatin 20 mg tablet (Zocor) 20 mg PO QPM 09/15/19 04/10/24 History cholecalciferol (vitamin D3) 25 50 mcg PO DAILY 01/09/22 04/10/24 History mcg (1,000 unit) tablet finasteride 5 mg tablet (Proscar) 5 mg PO DAILY #90 tabs 01/26/22 04/10/24 Rx ferrous sulfate 325 mg (65 mg 325 mg PO DAILY #30 tabs 02/13/22 04/10/24 Rx iron) tablet aspirin 81 mg capsule 81 mg PO DAILY 03/27/24 04/10/24 History diclofenac sodium 1 % topical gel 2 g topical BID 03/27/24 04/10/24 History (Voltaren Arthritis Pain) fluticasone propionate 50 1 spray intranasal DAILY 03/27/24 04/10/24 History mcg/actuation nasal spray,suspension latanoprost 0.005 % eye drops 1 drp ophthalmic (eye) BID 03/27/24 04/10/24 History (Xalatan) sertraline 100 mg tablet (Zoloft) 100 mg PO DAILY 03/27/24 04/10/24 History oxycodone 5 mg tablet 5 mg PO Q6H PRN pain #20 tabs 04/10/24 Rx tramadol 50 mg tablet 50 mg PO Q6H PRN pain, moderate 04/10/24 Rx #20 tabs Patient History Medical History (Updated 04/10/24 @ 07:41 by Wood Cortes DO) Stroke (~2016) Hyperlipidemia Anxiety History of colon polyps Hiatal hernia s/p sx Seasonal allergies Glaucoma History of anemia hx iron infusions; no known current issues Gilbert syndrome no issues, 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 Tremor right hand Obesity GERD (gastroesophageal reflux disease) Post traumatic stress disorder Sleep apnea BIPAP Surgical History (Updated 04/10/24 @ 13:01 by Dontrell Torres PA-C) History of open reduction and internal fixation (ORIF) procedure left ankle Status post laparoscopic fundoplication H/O removal of cyst History of colonoscopy History of esophagogastroduodenoscopy (EGD) Hx of inguinal hernia repair right History of total right knee replacement (TKR) History of total left hip replacement History of transurethral resection of prostate X 2 Hx of appendectomy Family History Sister Cancer bone marrow Mother Heart disease Other No family history of adverse response to anesthesia Social History Smoking Status: Never smoker Second Hand Exposure: No; Do You Dip or Chew Tobacco: No; Tobacco Cessation Education Requested by Patient: No Hx Alcohol Use: Yes Alcohol type: beer Hx Substance Use: No Preferred Language: Portuguese Communication Ability: Effective Cyber Special Agent Required: No Beliefs That Will Affect Care: None marital status: Current Living Situation: Spouse current occupational status: retired Other Information That Helps Us Care for You: No Feels Safe at Home: Yes Safety Concerns: Feels Safe At This Time Assistive Devices: BiPap, Denture - Upper, Denture - Lower, Glasses, Hearing Aid - Bilateral and Walker Assistive Devices Comment: walker prn Physical Exam Physical Exam: Physical Exam: General: In no acute distress, stated age, well-nourished, good hygiene HEENT: Cervical collar currently in place, surgical site is bandaged without signs of drainage, no scleral icterus, pupils around round, symmetrical, and reactive to light, moist mucus membranes, trachea midline, no thyromegaly Chest/Pulm: No respiratory distress, symmetrical chest expansion, clear breath sounds throughout Cardiac: RRR, no murmurs noted Abdomen: Negative for ascites and bruising, normoactive bowel sounds, soft, non-tender to palpation throughout Musculoskeletal: Symmetrical and without signs of acute trauma, upper and lower extremities with full ROM, no atrophy, spasticity, or flaccidity Extremities: Radial, dorsalis pedis, and posterior tibial pulses are intact and symmetrical, no edema noted in the BL LE's Skin: Warm, dry, no rashes , lesions, or scars noted Neuro: Alert and oriented to person, place, month, year, and president, no focal defects, symmetrical strength, sensation, and motor function in the BL UE's Psych: No acute distress, calm and cooperative during the exam Results & Data Results & Data Vital Signs (Past 12 Hours) Vital Signs Temp Pulse Pulse Resp BP Pulse Ox O2 Del Method 04/10/24 12:31 36.1 C L 86 16 142/79 H 94 Nasal Cannula 04/10/24 12:02 36.6 C 69 16 153/78 H 94 Nasal Cannula 04/10/24 11:30 36.8 C 76 16 154/84 H 94 Nasal Cannula 04/10/24 11:20 75 12 160/78 H 94 Nasal Cannula 04/10/24 11:10 78 10 L 154/86 H 94 Nasal Cannula 04/10/24 11:00 71 16 166/81 H 93 Nasal Cannula 04/10/24 10:50 68 15 156/78 H 93 Nasal Cannula 04/10/24 10:40 70 10 L 163/89 H 95 Nasal Cannula 04/10/24 10:30 72 10 L 143/90 H 94 Room Air 04/10/24 10:20 66 14 165/87 H 95 Oxymask 04/10/24 10:10 66 15 157/85 H 95 Oxymask 04/10/24 10:00 70 12 171/86 H 97 Oxymask 04/10/24 09:50 69 13 167/82 H 97 Oxymask 04/10/24 09:40 74 14 167/94 H 97 Oxymask 04/10/24 09:32 36.0 C L 66 12 155/90 H 99 Oxymask 04/10/24 06:28 36.9 C 53 L 18 151/77 H 97 Room Air O2 Flow Rate 04/10/24 12:31 2 04/10/24 12:02 2 04/10/24 11:30 04/10/24 11:20 2 04/10/24 11:10 2 04/10/24 11:00 2 04/10/24 10:50 2 04/10/24 10:40 2 04/10/24 10:30 0 04/10/24 10:20 4 04/10/24 10:10 4 04/10/24 10:00 9 04/10/24 09:50 9 04/10/24 09:40 9 04/10/24 09:32 9 04/10/24 06:28 Diagnostic Findings Cervical Spine X-Ray 04/10/24 07:45 INTRAOPERATIVE RADIOGRAPHS CLINICAL HISTORY: C5-C7 spinal fusion. Fluoro time: 14 seconds Ka,r: 8.28 mGy FINDINGS: 3 spot fluoroscopic views of the cervical spine are presented. There has been discectomy at C5-C6 and C6-C7 with anterior spinal fusion at C5-C7. The orthopedic hardware appears intact. An endotracheal tube is in place. IMPRESSION: Intraoperative images from cervical spinal fusion surgery as above. Electronically signed by: Darvin Ba M.D. 04/10/2024 9:48 AM PG Care Time/CCT Total # of Minutes Spent Total Time Spent with Patient: Total time spent is greater than 50% in coordination of care (as documented) at patient's floor/unit and/or counseling patient: C[place] [address] IN/OBS CONSULT LVL 3,45M Patient Type Established Medical Decision Making Moderate Complexity Diagnoses Status post cervical spinal fusion Z98.1 BPH (benign prostatic hyperplasia) N40.0 Anxiety F41.9 Sleep apnea G47.30 GERD (gastroesophageal reflux disease) K21.9
[2024-04-10] MEDS: LACTATED RINGER'S 1,000 ML IV SCH (16:04)
[2024-04-10] MEDS: LATANOPROST 0.005% OP SOLN 2.5 ML BTL OP SCH (21:06)
[2024-04-10] MEDS: SIMVASTATIN 20 MG TAB PO SCH (21:07)
[2024-04-10] MEDS: PANTOprazole 40 MG TAB PO ONE (21:07)
[2024-04-10] MEDS: DOCUSATE SODIUM/SENNA 50/8.6MG TAB PO SCH (21:12)
[2024-04-10] MEDS: oxyCODONE HCL IR 5 MG TAB (IMMEDIATE RELEASE) PO PRN (21:15)
[2024-04-11] MEDS: ALUMINUM/MAGNESIUM SUSP 30 ML UDC PO PRN (01:01)
[2024-04-11] MEDS: traMADol HCL 50 MG TABLET PO PRN (01:03)
[2024-04-11 06:18] LABS: Basophils # (auto) 0.02 K/uL (0.00-0.20); Basophils % (auto) 0.2 %; Eosinophils # (auto) 0.04 K/uL (0.00-0.50); Eosinophils % (auto) 0.4 %; Hematocrit (blood only) 39.6 % (42.0-52.0); Immature Granulocytes # (auto) 0.18 K/uL (0.01-0.20); Immature Granulocytes % (auto) 1.6 %; Lymphocytes # (auto) 1.38 K/uL (1.20-3.40); Lymphocytes % (auto) 12.1 %; Mean Corpuscular Hemoglobin 29.5 pg (25.0-34.0); Mean Corpuscular Hgb Conc 32.8 g/dL (32.0-36.0); Mean Corpuscular Volume 89.8 fL (80.0-100.0); Mean Platelet Volume 12.8 fL (9.4-12.4); Monocytes # (auto) 2.83 K/uL (0.11-0.59); Monocytes % (auto) 24.9 %; Neutrophils # (auto) 6.93 K/uL (1.40-6.50); Neutrophils % (auto) 60.8 %; Platelet Count 137 K/uL (130-400); RDW Coefficient of Variation 15.2 % (11.5-14.5); RDW Standard Deviation 50.5 fL (36.4-46.3); Red Blood Count 4.41 M/uL (4.70-6.10); White Blood Count 11.38 K/ul (4.8-10.8)
[2024-04-11 06:30] LABS: BUN Creatinine Ratio 23.5 (10-20); Calcium 9.1 mg/dl (8.6-10.3); Creatinine Clr Calc Pharmacy 92.2 ml/min; Est GFR (African American) 98.8 ml/min; Est GFR (Non-African American) 85.2 ml/min; Magnesium 2.2 mg/dl (1.7-2.4); Potassium 4.1 mmol/L (3.5-5.1)
[2024-04-11] MEDS: POLYETHYLENE (MIRALAX) 17 GM PACK PO SCH (06:35)
--- NOTE | 2024-04-11 07:46 | Hospitalist Progress Note ---
Date of Service April 11, 2024 Assessment & Plan (1) Status post cervical spinal fusion: Plan: 04/11 POD#1 s/p#1 anterior cervical discectomy with bilateral foraminotomies C5-C6 C6- C7. #2 anterior cervical arthrodesis C5-C6 C6-C7. #3 placement of Spira 7 mm cage filled with catalyst bone graft at C5-C6 C6-C7. #4 application of K2 M plate and screws from C5-C7 with Dr Cortes. EBL 10cc WBC elevation suspected 2nd to steroids, afebrile. On Dexamethasone 6mg IV daily while inpatient per primary service Hgb 13.9--> 13.0, acute blood loss anemia from surgery/dilutional aspect from IVF suspected BP stable 134/82, no hypotension Utilized 2L HS rather than CPAP HS given cervical color PPI increased to BID while on steroids Dispo: per primary service monitoring overnight/NICOLE output but otherwise stable for dc. No respiratory issues/stridor, on room air (2) BPH (benign prostatic hyperplasia): Plan: Continue finasteride (3) Anxiety: Plan: Continue sertraline (4) Sleep apnea: Plan: 2L HS while collar in place for now, resume CPAP HS as able per primary service (5) GERD (gastroesophageal reflux disease): Plan: Continue PPI, increased to BID while on steroids/aspirin Pepcid x 1 now Plan continued inpatient stay monitoring NICOLE output overnight but hopeful for dc tomorrow Thank you for allowing hospitalist service to participate in the care of Mr Garland. Please call with any questions/concerns. Admission and Anticipated Discharge Date Admission Date: April 10, 2024 Supervising Physician Co-Signing Physician Notes The patient was not seen by me. The chart was reviewed. Case discussed with SAKSHI Medeiros. Agree with assessment and plan Subjective Eval this morning, sitting up in bed. Feeling well. NICOLE output increased and monitoring overnight. Good appetite, no issues swallowing/SOB, no stridor on exam, on room air. Passing gas but no bowel movement at this time. Ambulating to bathroom. No CP/abdominal pain, nausea or lightheaded/dizziness. Some reflux, on steroids. On ppi once daily and will increase to BID. Questions/concerns addressed at this time. Anticipating dc tomorrow if output decreased. Physical Exam Physical Exam: Physical Exam: General: In no acute distress, stated age, well-nourished, good hygiene HEENT/resp Cervical collar currently in place, dressing intact, bloody drainage noted but not completely saturated, NICOLE w/ bloody drainage No wheezing/rales, on room air, no tachypnea. NO STRIDOR/wheezing Cardiac: RRR, no murmurs noted Abdomen: Negative for ascites and bruising, normoactive bowel sounds, soft, non-tender to palpation throughout Neuro/MSK: nonfocal, answering questions appropriately, strength testing wnl, pulses palpable, sensation intact Psych: AOx3, cooperative Results & Data Results & Data Vital Signs (Past 12 Hours) Vital Signs Temp Pulse Resp BP Pulse Ox Pulse Ox O2 Del Method 04/11/24 06:34 36.6 C 62 14 134/82 94 Room Air 04/11/24 04:25 36.6 C 67 16 149/82 H 97 Nasal Cannula 04/11/24 02:44 65 14 95 Nasal Cannula 04/11/24 02:36 36.5 C 61 16 132/83 96 Nasal Cannula 04/11/24 00:30 36.7 C 63 16 133/84 97 Nasal Cannula 04/10/24 23:29 84 16 96 Nasal Cannula 04/10/24 22:30 36.6 C 66 14 143/80 H 95 Nasal Cannula 04/10/24 20:20 Nasal Cannula 04/10/24 20:20 94 04/10/24 20:20 36.5 C 82 14 130/82 94 Nasal Cannula 04/10/24 20:00 88 14 91 Nasal Cannula O2 Del Method O2 Flow Rate O2 Flow Rate 04/11/24 06:34 04/11/24 04:25 2 04/11/24 02:44 2 04/11/24 02:36 2 04/11/24 00:30 2 04/10/24 23:29 1 04/10/24 22:30 2 04/10/24 20:20 2 04/10/24 20:20 Nasal Cannula 2 04/10/24 20:20 2 04/10/24 20:00 1 Laboratory Results 04/11/24 Range/Units 05:29 WBC 11.38 H (4.8-10.8) K/ul RBC 4.41 L (4.70-6.10) M/uL Hgb 13.0 L (14.0-18.0) g/dl Hct 39.6 L (42.0-52.0) % MCV 89.8 (80.0-100.0) fL MCH 29.5 (25.0-34.0) pg MCHC 32.8 (32.0-36.0) g/dL RDW Std Deviation 50.5 H (36.4-46.3) fL RDW Coeff of Leonora 15.2 H (11.5-14.5) % Plt Count 137 (130-400) K/uL MPV 12.8 H (9.4-12.4) fL Immature Gran % (Auto) 1.6 % Neut % (Auto) 60.8 % Lymph % (Auto) 12.1 % Walsh % (Auto) 24.9 % Eos % (Auto) 0.4 % Baso % (Auto) 0.2 % Neut # (Auto) 6.93 H (1.40-6.50) K/uL Lymph # (Auto) 1.38 (1.20-3.40) K/uL Walsh # (Auto) 2.83 H (0.11-0.59) K/uL Eos # (Auto) 0.04 (0.00-0.50) K/uL Baso # (Auto) 0.02 (0.00-0.20) K/uL Immature Gran # (Auto) 0.18 (0.01-0.20) K/uL Sodium 138 (136-145) mmol/L Potassium 4.1 (3.5-5.1) mmol/L Chloride 104 (98-107) mmol/L Carbon Dioxide 25 (21-32) mmol/L Anion Gap 9 (3-11) BUN 20 (6-23) mg/dl Creatinine 0.85 (0.6-1.4) mg/dl Est Cr Clr Drug Dosing 92.2 ml/min Est GFR ( Amer) 98.8 ml/min Est GFR (Non-Af Amer) 85.2 ml/min BUN/Creatinine Ratio 23.5 H (10-20) Glucose 139 H (70-99(Fasting)) mg/dl Calcium 9.1 (8.6-10.3) mg/dl Magnesium 2.2 (1.7-2.4) mg/dl Diagnostic Findings Cervical Spine X-Ray 04/10/24 07:45 INTRAOPERATIVE RADIOGRAPHS CLINICAL HISTORY: C5-C7 spinal fusion. Fluoro time: 14 seconds Ka,r: 8.28 mGy FINDINGS: 3 spot fluoroscopic views of the cervical spine are presented. There has been discectomy at C5-C6 and C6-C7 with anterior spinal fusion at C5-C7. The orthopedic hardware appears intact. An endotracheal tube is in place. IMPRESSION: Intraoperative images from cervical spinal fusion surgery as above. Electronically signed by: Darvin Ba M.D. 04/10/2024 9:48 AM PG Care Time/CCT Total # of Minutes Spent Total Time Spent with Patient: Total time spent is greater than 50% in coordination of care (as documented) at patient's floor/unit and/or counseling patient: Coding Level of Care Code 40408 SUB INP/OBS CARE 2/35MIN Diagnoses Status post cervical spinal fusion Z98.1 BPH (benign prostatic hyperplasia) N40.0 Anxiety F41.9 Sleep apnea G47.30 GERD (gastroesophageal reflux disease) K21.9
[2024-04-11] MEDS: FERROUS SULFATE 325 MG TAB PO SCH (08:37)
[2024-04-11] MEDS: dexAMETHasone 6 MG in SYRINGE 0 ML IV SCH (08:37)
[2024-04-11] MEDS: PANTOprazole 40 MG TAB PO SCH ×2 (08:37→20:13)
[2024-04-11] MEDS: CHOLECALCIFEROL 25 MCG (1000 UNITS) TAB PO SCH (08:37)
[2024-04-11] MEDS: FINASTERIDE 5 MG TAB PO SCH (08:37)
[2024-04-11] MEDS: SERTRALINE HCL 100 MG TABLET PO SCH (08:37)
[2024-04-11] MEDS: ASPIRIN 81 MG ECTAB PO SCH (08:37)
[2024-04-11] MEDS: FLUTICASONE PROPIONATE NA SPR 16 GM BTL SCH (08:38)
--- NOTE | 2024-04-11 08:45 | Orthopedic Progress Note ---
Date of Service April 11, 2024 Assessment & Plan (1) Cervical stenosis of spinal canal: Plan: Assessment status post anterior cervical discectomy and fusion. Plan at this time his NICOLE drain is still putting out significant amount of drainage. Subsequently I am going to maintain the drain another 24 hours and anticipate discharge home tomorrow. Admission and Anticipated Discharge Date Admission Date: April 10, 2024 Subjective Neck pain controlled arm symptoms improved. Swallowing well. No hoarseness. Physical Exam Physical Exam: On exam he is sitting up in bed. Is good strength testing. Neck is supple without swelling. Results & Data Vital Signs (Past 12 Hours) Vital Signs Temp Pulse Resp BP Pulse Ox O2 Del Method O2 Flow Rate 04/11/24 08:42 66 14 96 Room Air 04/11/24 06:34 36.6 C 62 14 134/82 94 Room Air 04/11/24 04:25 36.6 C 67 16 149/82 H 97 Nasal Cannula 2 04/11/24 02:44 65 14 95 Nasal Cannula 2 04/11/24 02:36 36.5 C 61 16 132/83 96 Nasal Cannula 2 04/11/24 00:30 36.7 C 63 16 133/84 97 Nasal Cannula 2 04/10/24 23:29 84 16 96 Nasal Cannula 1 04/10/24 22:30 36.6 C 66 14 143/80 H 95 Nasal Cannula 2 FiO2 04/11/24 08:42 21 04/11/24 06:34 04/11/24 04:25 04/11/24 02:44 04/11/24 02:36 04/11/24 00:30 04/10/24 23:29 04/10/24 22:30 Queries Orthopedic Spine Obesity: Yes
[2024-04-11] MEDS ORDERED: Nursing to Pharmacy Communication SCH ×2 (09:45→12:00)
[2024-04-11] MEDS: FAMOTIDINE 20MG IV PUSH 20 MG/5 ML SYR IV STA (13:28)
[2024-04-11] MEDS: LATANOPROST 0.005% OP SOLN 2.5 ML BTL OP SCH (20:13)
[2024-04-12] MEDS: ACETAMINOPHEN 500 MG TAB PO PRN (04:37)
--- NOTE | 2024-04-12 09:10 | Discharge Summary ---
Date of Service April 12, 2024 Admission HPI Per Admitting Provider This is a 73-year-old male presents with chronic persistent neck and arm pain and failing course of nonoperative care is here for surgical invention. Principal Diagnosis Cervical spinal stenosis with radiculopathy Discharge Data Allergies Allergy/AdvReac Type Severity Reaction Status Date / Time No Known Allergies Allergy nkda Verified 04/10/24 06:23 Consultations 04/10/24 11:32 Consult Hospitalist Routine Procedures Performed Operation Date: 04/10/24 07:45 Actual Procedures p C5-C7 Anterior Cervical Discectomy and Fusion, Spinal Cord Monitoring(Not Applicable) - Wood Cortes DO Ordered Studies 04/10/24 07:45 FL cervical 2-3V Routine Hospital Course (1) Cervical stenosis of spinal canal: Patient underwent anterior cervical discectomy fusion tolerated this well was taken to orthopedic floor. Postoperatively he was swallowing well. No hoarseness. Arm symptoms improved. NICOLE drain considerable subsequently we elected to observe him 1 more day with a NICOLE drain in place. The following morni ng the NICOLE drain had decreased there is no swelling to the cervical spine. Neurologically intact. Is up and ambulating without difficulty. Subsequent discharge home. Discharge orders instructions from the chart for further view. Total Time Total Time Spent Total Time Spent (In Minutes): 20 minutes Discharge Plan Discharge Items Patient Disposition: Home - Self-Care Reason For Visit: Cervical Disc Disease, Cervical Spon Discharge Diagnosis: Cervical spinal stenosis with radiculopathy Activity: As commented below Non-emergency contact: Primary Care Provider Call non-emergency contact if: you have any medication questions Follow-up/Referrals: Vamshi Red PA-C [Primary Care Provider] - Diet: Regular Addtl Attending Provider Instructions: ACTIVITY RECOMMENDATIONS: SELF CARE INSTRUCTIONS AFTER CERVICAL FUSIONS 1. No smoking. Smoking drastically decreases the chance of a solid fusion. 2. No bending, lifting more than 5 pounds, or twisting (roll like a log when turning in bed). 3. You may shower 3 days after surgery. Thoroughly dry wound. Do not soak in the tub. 4. Cervical collar: Must be worn at all times including sleeping. You may remove the brace only to bath, eat and if you are sitting in a recliner. 5. Please walk as much as you can for exercise. Gradually increase the distance that you walk as your endurance increases. SPECIAL CARE INSTRUCTIONS: VERY IMPORTANT TO READ AND REVIEW A. Do not take any anti-inflammatory medications (i.e. Indocin, Advil, Aspirin, Naprosyn, Aleve, Motrin, etc.) as these may inhibit the chance of a solid fusion. Tylenol is okay to take. B. Your surgical incision has been closed with a cosmetic suture under the skin that will dissolve in about 6 weeks. In 14 days, you can use a pair of clean scissors and cut the suture that is left outside of the skin at the ends of your incision. C. Complications are uncommon, but please contact us if you have any signs or symptoms of: 1. wound infection (fever higher than 102.5 degrees F, redness, separation of wound, drainage, or increasing pain from the incision) 2. blood clots in legs (pain, swelling, redness and warmth in legs) 3. urinary tract infection (fever higher than 102.5 degrees, burning upon urination or increased frequency of urination) 4. nerve problems (inability to walk on your toes or heels, numbness, loss of bowel or bladder control) 5. any other symptoms that concern you. D. Please call the office at if you have any concerns or questions about your operation or recovery. MANAGING PAIN AFTER SPINAL SURGERY 1. Narcotic medication is intended for short-term use and will be provided for surgical pain. Surgical pain usually lasts for a period of 4-6 weeks. Narcotic medication includes Percocet, Vicodin, Darvocet, Tylenol #3 or Lortab. 2. Longer-term pain is more appropriately treated with non-narcotic medication such as Tylenol ES. 3. Muscle spasm is not appropriately treated with narcotics. Muscle relaxers such as Soma, Flexeril or Skelaxin can be used along with Tylenol ES. 4. Remember that we all live with some "aches and pains". This is not unusual or uncommon after an injury or as we get older. 5. We will provide appropriate medication within the normal guidelines of their prescribed use. We will also be very cautious and aware of potential abuse and extended duration of patients' medication needs. 6. Please allow 2-3 days to process refills. Prescriptions will not be mailed but must be picked up at the office. FOLLOW UP VISIT: Keep your scheduled follow-up appointment. Any questions, please call the office at . Pending Studies at Discharge: No Stand-Alone Forms: My [facility], Smoking Cessation Medications and DC Order Prescriptions: New tramadol 50 mg tablet 50 mg PO Q6H PRN (Reason: pain, moderate) Qty: 20 0RF oxycodone 5 mg tablet 5 mg PO Q6H PRN (Reason: pain) Qty: 20 0RF Continued finasteride [Proscar] 5 mg tablet 5 mg PO DAILY Qty: 90 3RF simvastatin [Zocor] 20 mg tablet 20 mg PO QPM omeprazole 20 mg capsule,delayed release(DR/EC) 20 mg PO QAM ferrous sulfate 325 mg (65 mg iron) tablet 325 mg PO DAILY Qty: 30 0RF Rx Instructions: OTC-don't take at same time as your doxycycline cholecalciferol (vitamin D3) 25 mcg (1,000 unit) tablet 50 mcg PO DAILY latanoprost [Xalatan] 0.005 % Drops 1 drp OPHTHALMIC (EYE) BID sertraline [Zoloft] 100 mg Tablet 100 mg PO DAILY fluticasone propionate [Flonase] 50 mcg/actuation [place],Suspension 1 spray INTRANASAL DAILY Rx Instructions: administer into each nostril diclofenac sodium [Voltaren Arthritis Pain] 1 % Gel 2 g TOPICAL BID Rx Instructions: apply to single elbow, wrist or hand; for hand includes palm/fingers/back of hand aspirin 81 mg Capsule 81 mg PO DAILY Discharge Orders: Discharge Order (Routine); Ordered 04/12/24 Ordered By: Wood Cortes Admission Data Admit Date/Time: 04/10/24 09:19 Attending Provider: Wood Cortes Admit Provider: Wood Cortes Primary Care Provider: Vamshi Red Other Providers: Rashad Carreon
--- NOTE | 2024-04-12 10:24 | Communication Note ---
Date of Service: April 12, 2024 Patient seen this AM socially, as looked good/just monitoring NICOLE output overnight -->NICOLE output significantly decreased and to be removed today. Pain controlled, no issues with tolerating diet. Planning for dc per primary service. Stable for dc from medical standpoint. --Please call w/ any questions/concerns.
== END 2024-04-12 11:20 | disposition home or self-care (01) ==
LOC: 3E 05:32 → ASU 05:32